=== PATIENT | male | born 1985 | race Caucasian/White ===

== ENCOUNTER 2018-01-07 09:55 | Emergency (ER) | payer BC, SELFPAY ==
[2018-01-07 10:02] VITALS: BP 138/98; PULSE 77; RESP 20; TEMP 36.5; O2SAT 98
--- NOTE | 2018-01-07 10:14 | DI.CT_ITS ---
SYMPTOMS/DIAGNOSIS: LEFT FLANK PAIN TO GROIN, RECENT APPENDECTOMY, H/O CYSTIC FIBROSIS ABDOMINAL AND PELVIC CT: CT examination of the abdomen and pelvis was performed without contrast administration. The patient has reportedly had a previous appendectomy. Images obtained through the lung bases show mild scattered bronchiectasis and mild interstitial changes. The patient reportedly has a history of cystic fibrosis. Liver and spleen are unremarkable in appearance by noncontrast criteria. The pancreas is fatty replaced. No biliary dilatation seen. The gallbladder not identified with certainty. There is a large quantity of ingested material in the stomach. Abdominal aorta is of normal diameter. No abdominal or pelvic adenopathy seen. No significant abdominal wall hernia seen. There is a large quantity of fecal material in the colon, particularly in ascending and transverse colon. No gross obstruction seen. The small bowel is within normal limits in diameter. Adrenals appear normal bilaterally. There are multiple bilateral nonobstructing renal calculi. No ureteral calcification or hydronephrosis identified. Urinary bladder is essentially empty. CONCLUSION: Multiple bilateral renal calculi. No other acute findings.
--- NOTE | 2018-01-07 10:16 | W.ED.GENAD ---
Discharge Plan Discharge Details Chief Complaint: FlankPain Primary Care Provider: Iesha Vargas ED Provider: Temo Whaley Home Meds and New Rx's Prescriptions: No Action multivitamin [Daily Multi-Vitamin] 1 EACH tablet 1 tab PO BID RF: 0 polyethylene glycol 3350 17 GM powder in packet 17 gm PO BID RF: 0 cetirizine [Zyrtec] 10 MG tablet 10 mg PO DAILY RF: 0 dornase soumya [Pulmozyme] 1 MG/ML solution 2.5 ml IN BID RF: 0 pantoprazole 40 MG tablet,delayed release (DR/EC) 1 tab PO DAILY RF: 0 ergocalciferol (vitamin D2) [Vitamin D2] 50,000 UNIT capsule 1 tab PO DIRECTED RF: 0 sodium chloride 3 ML solution for nebulization 1 ea Inhalation BID RF: 0 fluticasone-salmeterol [Advair HFA] 12 GM HFA aerosol inhaler 2 puff IN DAILY RF: 0 aztreonam lysine [Cayston] 75 MG/ML solution for nebulization 1 inh Inhalation TID RF: 0 [id number] [Creon] 1 EACH capsule,delayed release(DR/EC) 1 tab PO AC RF: 0 albuterol sulfate [ProAir RespiClick] 90 MCG aerosol powdr breath activated 2 puff Inhalation PRN PRNRF: 0 lumacaftor-ivacaftor [Orkambi] 1 EACH tablet 2 tab PO BID RF: 0 Medical Decision Making 32-year-old male presents from work for the abrupt onset of left flank pain that radiates to his groin. He has associated some previous low back pain with his uneventful appendectomy earlier in the summer. He arrives afebrile, interactive, with reassuring vital signs. His exam reveals some mild left lower quadrant tenderness without rebound or guarding. Differential diagnosis includes ureteral colic, ileus, gaseous distention of bowel. Patient referred for laboratory testing and urinalysis with noncontrast CT scan. He is given a fluid bolus . In the emergency department, the patient gave his urine sample and felt immediate release of pain and felt like he passed stone. Patient did have large blood present in lab reports a calculus, patient referred for stone analysis. CT reveals intrarenal calculi but no ureteral stone, and is consistent with his presentation. Advised patient follow-up with Dr. Alicea given his new diagnosis of renal calculi. Stable for outpatient management. Lab Data 01/07/18 10:15 Urine - Reflex from Ua Urine Culture - Pending Laboratory Tests Range/Units 01/07/18 01/07/18 01/07/18 10:15 10:25 10:25 WBC (4.4-10.8) k/cumm 8.38 RBC (4.50-6.00) m/cumm 5.62 Hgb (13.5-17.5) g/dL 16.1 Hct (40.0-50.0) % 47.4 MCV (80-95) fL 84.3 MCH (27.0-33.0) pg 28.6 MCHC (32.0-36.0) g/dL 34.0 RDW (11.8-14.1) % 13.7 Plt Count (130-400) x1000/uL 267 MPV (8.0-11.0) fL 9.7 Immature Gran % 0.2 Neutrophils % 67.9 Lymphocytes % 20.2 Monocytes % 8.0 Eosinophils % 3.2 Basophils % 0.5 Absolute Neutrophils (1.2-6.7) k/cumm 5.69 Absolute Lymphocytes (1.2-3.4) k/cumm 1.69 Absolute Monocytes (0.11-0.7) k/cumm 0.67 Absolute Eosinophils (0.0-0.7) k/cumm 0.27 Absolute Basophils (0.0-0.2) k/cumm 0.04 Sodium (136-145) mmol/L 138 Potassium (3.5-5.1) mmol/L 4.5 Chloride (98-107) mmol/L 101 Carbon Dioxide (21.0-32.0) mmol/L 29.2 Anion Gap (3-11) mmol/L 7.8 BUN (7-18) mg/dL 10 Creatinine (0.70-1.30) mg/dL 1.12 Estimated GFR/1.73 m2 (mL/min/1.73m2) >= 60.00 Glucose (70-100) mg/dL 135 H Calcium (8.5-10.1) mg/dL 9.4 Total Bilirubin (0.2-1.0) mg/dL 0.5 AST (15-37) U/L 19 ALT (12-78) U/L 29 Alkaline Phosphatase (46-116) U/L 102 Total Protein (6.4-8.2) g/dL 8.9 H Albumin (3.4-5.0) g/dL 4.0 Urine Color (Yellow) Yellow Urine Clarity Clear Urine pH (5-8) 5.5 Ur Specific [place] (1.005-1.025) 1.025 Urine Protein (Negative) mg/dL 100 H Urine Ketones (Negative) mg/dL Trace H Urine Blood (Negative) Large H Urine Nitrite (Negative) Negative Urine Bilirubin (Negative) Negative Urine Urobilinogen (Up TO 0.2) EU/dL 0.2 Ur Leukocyte Esterase (Negative) Negative Urine RBC (0-2) >50 H Urine WBC (0-5) HPF 3-5 Ur Epithelial Cells (Negative) HPF Negative Urine Crystals (Negative) HPF Negative Urine Bacteria (Negative) HPF Moderate Urine Casts (Negative) LPF Negative Urine Mucus (Negative) Heavy Urine Other (Negative) Few renal Ur Culture Indicated? Yes Urine Glucose (Negative) mg/dL Negative HPI General Mode of arrival: ambulatory. Date/Time Provider Initiated Documentation: 01/07/18 10:05. Limitations to Documentation: no limitations. Information obtained by: patient. History of Present Illness 32 year old M presents to the emergency department with the chief complaint of Left back pain, described as moderate, Quality is described as aching, and is localized to the back and left. Patient abdomen. Patient started experiencing this hour(s) and it has been colicky. No relieving factors improve symptom(s), No exacerbating factors reported . Patient notes no other symptoms.. Patient did receive the following treatments prior to arrival, none HPI Narrative: Left flank pain: This is a 32-year-old male with a history of cystic fibrosis who underwent uneventful appendectomy in November. He states since that time his intermittent episodes of mild low back pain. Today at work while at rest and sitting he developed the abrupt onset of severe left-sided flank pain that radiated to his left testicle. Denies change to urine, has had no fever, no vomiting, no change to stool Related Data Home Medications Medication Instructions Recorded Confirmed albuterol sulfate [ProAir 2 puff INHALATION PRN PRN 11/14/17 01/07/18 RespiClick] aztreonam lysine [Cayston] 1 inh INHALATION TID 11/14/17 01/07/18 cetirizine [Zyrtec] 10 mg PO DAILY 11/14/17 01/07/18 dornase soumya [Pulmozyme] 2.5 ml IN BID 11/14/17 01/07/18 ergocalciferol (vitamin D2) 1 tab PO DIRECTED 11/14/17 01/07/18 [Vitamin D2] fluticasone-salmeterol [Advair Hfa 2 puff IN DAILY 11/14/17 01/07/18 115-21 Mcg Inhaler] [id number] [Creon Dr 1 tab PO AC 11/14/17 01/07/18 36,000 Units Capsule] lumacaftor-ivacaftor [Orkambi 200 2 tab PO BID 11/14/17 01/07/18 mg-125 mg Tablet] multivitamin [Multi-Vitamin Daily] 1 tab PO BID 11/14/17 01/07/18 pantoprazole 1 tab PO DAILY 11/14/17 01/07/18 polyethylene glycol 3350 17 gm PO BID 11/14/17 01/07/18 sodium chloride 1 ea INHALATION BID 11/14/17 11/14/17 Allergies Allergy/AdvReac Type Severity Reaction Status Date / Time No Known Allergies Allergy Unverified 01/07/18 10:07 General Stated Complaint: GenMedical CLAIRE: 3 Review of Systems Review of Systems 7 systems reviewed and otherwise negative [facility] Surgical History Appendectomy (11/14/17) Exam Narrative Exam Narrative: GEN: awake, alert, oriented 3. Pleasant, well groomed, interactive. HEAD: Normocephalic, atraumatic ENT: Mucous membranes moist, oropharynx unremarkable, External ear exam unremarkable EYES: PERRL, EOMI NECK: Full ROM, no WILIAN, no menigismus CHEST/RESP: Nontender, clear to auscultation bilateral, no wheeze/rhonchi/rales CARDIOVASCULAR: RRR, no murmur, rub tim. 2+ Rad pulse bilateral ABDOMEN: Soft, nontender, no mass. +Bowel sounds. Tender in left lower quadrant without rebound or guarding. No masses EXT: Full ROM, no edema, no rash Neuro: Grossly normal neurologic exam, conversant, interactive. Psych: Speech fluent, thoughts congruent, affect normal Course Vital Signs Temperature 36.5 C 01/07/18 10:02 Pulse 77 01/07/18 10:02 Respiratory Rate 20 01/07/18 10:02 Blood Pressure 138/98 H 01/07/18 10:02 Pulse Oximetry 98 01/07/18 10:02 Temperature 36.5 C 01/07/18 10:02 Pulse 77 01/07/18 10:02 Respiratory Rate 20 01/07/18 10:02 Blood Pressure 138/98 H 01/07/18 10:02 Pulse Oximetry 98 01/07/18 10:02 Oxygen Delivery Method Room Air 01/07/18 10:02 Oxygen Flow Rate 0 01/07/18 10:02 Pain Level 10 01/07/18 10:02
--- NOTE | 2018-01-07 10:19 | ED.GENADUL_ITS ---
Discharge Plan Discharge Details Chief Complaint: FlankPain Primary Care Provider: Iesha Vargas ED Provider: Temo Whaley Home Meds and New Rx's Prescriptions: No Action multivitamin [Daily Multi-Vitamin] 1 EACH tablet 1 tab PO BID RF: 0 polyethylene glycol 3350 17 GM powder in packet 17 gm PO BID RF: 0 cetirizine [Zyrtec] 10 MG tablet 10 mg PO DAILY RF: 0 dornase soumya [Pulmozyme] 1 MG/ML solution 2.5 ml IN BID RF: 0 pantoprazole 40 MG tablet,delayed release (DR/EC) 1 tab PO DAILY RF: 0 ergocalciferol (vitamin D2) [Vitamin D2] 50,000 UNIT capsule 1 tab PO DIRECTED RF: 0 sodium chloride 3 ML solution for nebulization 1 ea Inhalation BID RF: 0 fluticasone-salmeterol [Advair HFA] 12 GM HFA aerosol inhaler 2 puff IN DAILY RF: 0 aztreonam lysine [Cayston] 75 MG/ML solution for nebulization 1 inh Inhalation TID RF: 0 [id number] [Creon] 1 EACH capsule,delayed release(DR/EC) 1 tab PO AC RF: 0 albuterol sulfate [ProAir RespiClick] 90 MCG aerosol powdr breath activated 2 puff Inhalation PRN PRNRF: 0 lumacaftor-ivacaftor [Orkambi] 1 EACH tablet 2 tab PO BID RF: 0 Medical Decision Making 32-year-old male presents from work for the abrupt onset of left flank pain that radiates to his groin. He has associated some previous low back pain with his uneventful appendectomy earlier in the summer. He arrives afebrile, interactive, with reassuring vital signs. His exam reveals some mild left lower quadrant tenderness without rebound or guarding. Differential diagnosis includes ureteral colic, ileus, gaseous distention of bowel. Patient referred for laboratory testing and urinalysis with noncontrast CT scan. He is given a fluid bolus . In the emergency department, the patient gave his urine sample and felt immediate release of pain and felt like he passed stone. Patient did have large blood present in lab reports a calculus, patient referred for stone analysis. CT reveals intrarenal calculi but no ureteral stone, and is consistent with his presentation. Advised patient follow-up with Dr. Alicea given his new diagnosis of renal calculi. Stable for outpatient management. Lab Data 01/07/18 10:15 Urine - Reflex from Ua Urine Culture - Pending Laboratory Tests Range/Units 01/07/18 01/07/18 01/07/18 10:15 10:25 10:25 WBC (4.4-10.8) k/cumm 8.38 RBC (4.50-6.00) m/cumm 5.62 Hgb (13.5-17.5) g/dL 16.1 Hct (40.0-50.0) % 47.4 MCV (80-95) fL 84.3 MCH (27.0-33.0) pg 28.6 MCHC (32.0-36.0) g/dL 34.0 RDW (11.8-14.1) % 13.7 Plt Count (130-400) x1000/uL 267 MPV (8.0-11.0) fL 9.7 Immature Gran % 0.2 Neutrophils % 67.9 Lymphocytes % 20.2 Monocytes % 8.0 Eosinophils % 3.2 Basophils % 0.5 Absolute Neutrophils (1.2-6.7) k/cumm 5.69 Absolute Lymphocytes (1.2-3.4) k/cumm 1.69 Absolute Monocytes (0.11-0.7) k/cumm 0.67 Absolute Eosinophils (0.0-0.7) k/cumm 0.27 Absolute Basophils (0.0-0.2) k/cumm 0.04 Sodium (136-145) mmol/L 138 Potassium (3.5-5.1) mmol/L 4.5 Chloride (98-107) mmol/L 101 Carbon Dioxide (21.0-32.0) mmol/L 29.2 Anion Gap (3-11) mmol/L 7.8 BUN (7-18) mg/dL 10 Creatinine (0.70-1.30) mg/dL 1.12 Estimated GFR/1.73 m2 (mL/min/1.73m2) >= 60.00 Glucose (70-100) mg/dL 135 H Calcium (8.5-10.1) mg/dL 9.4 Total Bilirubin (0.2-1.0) mg/dL 0.5 AST (15-37) U/L 19 ALT (12-78) U/L 29 Alkaline Phosphatase (46-116) U/L 102 Total Protein (6.4-8.2) g/dL 8.9 H Albumin (3.4-5.0) g/dL 4.0 Urine Color (Yellow) Yellow Urine Clarity Clear Urine pH (5-8) 5.5 Ur Specific [place] (1.005-1.025) 1.025 Urine Protein (Negative) mg/dL 100 H Urine Ketones (Negative) mg/dL Trace H Urine Blood (Negative) Large H Urine Nitrite (Negative) Negative Urine Bilirubin (Negative) Negative Urine Urobilinogen (Up TO 0.2) EU/dL 0.2 Ur Leukocyte Esterase (Negative) Negative Urine RBC (0-2) >50 H Urine WBC (0-5) HPF 3-5 Ur Epithelial Cells (Negative) HPF Negative Urine Crystals (Negative) HPF Negative Urine Bacteria (Negative) HPF Moderate Urine Casts (Negative) LPF Negative Urine Mucus (Negative) Heavy Urine Other (Negative) Few renal Ur Culture Indicated? Yes Urine Glucose (Negative) mg/dL Negative HPI General Mode of arrival: ambulatory . Date/Time Provider Initiated Documentation: 01/07/18 10:05 . Limitations to Documentation: no limitations . Information obtained by: patient . History of Present Illness 32 year old M presents to the emergency department with the chief complaint of Left back pain, described as moderate, Quality is described as aching, and is localized to the back and left. Patient abdomen. Patient started experiencing this hour(s) and it has been colicky. No relieving factors improve symptom(s), No exacerbating factors reported . Patient notes no other symptoms.. Patient did receive the following treatments prior to arrival, none HPI Narrative: Left flank pain: This is a 32-year-old male with a history of cystic fibrosis who underwent uneventful appendectomy in November. He states since that time his intermittent episodes of mild low back pain. Today at work while at rest and sitting he developed the abrupt onset of severe left-sided flank pain that radiated to his left testicle. Denies change to urine, has had no fever, no vomiting, no change to stool Related Data Home Medications Medication Instructions Recorded Confirmed albuterol sulfate [ProAir 2 puff INHALATION PRN PRN 11/14/17 01/07/18 RespiClick] aztreonam lysine [Cayston] 1 inh INHALATION TID 11/14/17 01/07/18 cetirizine [Zyrtec] 10 mg PO DAILY 11/14/17 01/07/18 dornase soumya [Pulmozyme] 2.5 ml IN BID 11/14/17 01/07/18 ergocalciferol (vitamin D2) 1 tab PO DIRECTED 11/14/17 01/07/18 [Vitamin D2] fluticasone-salmeterol [Advair Hfa 2 puff IN DAILY 11/14/17 01/07/18 115-21 Mcg Inhaler] [id number] [Creon Dr 1 tab PO AC 11/14/17 01/07/18 36,000 Units Capsule] lumacaftor-ivacaftor [Orkambi 200 2 tab PO BID 11/14/17 01/07/18 mg-125 mg Tablet] multivitamin [Multi-Vitamin Daily] 1 tab PO BID 11/14/17 01/07/18 pantoprazole 1 tab PO DAILY 11/14/17 01/07/18 polyethylene glycol 3350 17 gm PO BID 11/14/17 01/07/18 sodium chloride 1 ea INHALATION BID 11/14/17 11/14/17 Allergies Allergy/AdvReac Type Severity Reaction Status Date / Time No Known Allergies Allergy Unverified 01/07/18 10:07 General Stated Complaint: GenMedical CLAIRE: 3 Review of Systems Review of Systems 7 systems reviewed and otherwise negative [facility] Surgical History Appendectomy (11/14/17) Exam Narrative Exam Narrative: GEN: awake, alert, oriented 3. Pleasant, well groomed, interactive. HEAD: Normocephalic, atraumatic ENT: Mucous membranes moist, oropharynx unremarkable, External ear exam unremarkable EYES: PERRL, EOMI NECK: Full ROM, no WILIAN, no menigismus CHEST/RESP: Nontender, clear to auscultation bilateral, no wheeze/rhonchi/rales CARDIOVASCULAR: RRR, no murmur, rub tim. 2+ Rad pulse bilateral ABDOMEN: Soft, nontender, no mass. +Bowel sounds. Tender in left lower quadrant without rebound or guarding. No masses EXT: Full ROM, no edema, no rash Neuro: Grossly normal neurologic exam, conversant, interactive. Psych: Speech fluent, thoughts congruent, affect normal Course Vital Signs Temperature 36.5 C 01/07/18 10:02 Pulse 77 01/07/18 10:02 Respiratory Rate 20 01/07/18 10:02 Blood Pressure 138/98 H 01/07/18 10:02 Pulse Oximetry 98 01/07/18 10:02 Temperature 36.5 C 01/07/18 10:02 Pulse 77 01/07/18 10:02 Respiratory Rate 20 01/07/18 10:02 Blood Pressure 138/98 H 01/07/18 10:02 Pulse Oximetry 98 01/07/18 10:02 Oxygen Delivery Method Room Air 01/07/18 10:02 Oxygen Flow Rate 0 01/07/18 10:02 Pain Level 10 01/07/18 10:02
[2018-01-07 10:29] LABS: Bilirubin Negative (Negative); Blood Large (Negative); Clarity Clear; Glucose Negative (Negative); Ketones Trace mg/dL (Negative); Leukocyte Esterase Negative (Negative); Nitrite Negative (Negative); Specific Gravity 1.025 (1.005-1.025); Urobilinogen 0.2 EU/dL (Up TO 0.2); pH 5.5 (5-8)
[2018-01-07] MEDS: Normal Saline 1,000 ML 125 ML IV (10:29)
[2018-01-07 10:30] LABS: Abs Immature Grans 0.02 k/cumm (0.0-0.09); Absolute Basophil Count 0.04 k/cumm (0.0-0.2); Absolute Eosinophil Count 0.27 k/cumm (0.0-0.7); Absolute Lymphocyte Count 1.69 k/cumm (1.2-3.4); Absolute Monocyte Count 0.67 k/cumm (0.11-0.7); Absolute Neutrophil Count 5.69 k/cumm (1.2-6.7); Basophils % 0.5; Eosinophils % 3.2; HCT 47.4 % (40.0-50.0); HGB 16.1 g/dL (13.5-17.5); Immature Grans % 0.2; Lymphocytes % 20.2; Mean Corpuscular Hemoglobin 28.6 pg (27.0-33.0); Mean Corpuscular Volume 84.3 fL (80-95); Mean Platelet Volume 9.7 fL (8.0-11.0); Neutrophils % 67.9; Platelet Count 267 x1000/uL (130-400); RBC 5.62 m/cumm (4.50-6.00); RBC Distribution Width 13.7 % (11.8-14.1); White Blood Cell Count 8.38 k/cumm (4.4-10.8)
[2018-01-07 10:48] LABS: Bacteria Moderate HPF (Negative); Epithelial Cells Negative HPF (Negative); Other Cells Few Renal (Negative); RBC >50 (0-2)
[2018-01-07 10:49] LABS: ALT 29 U/L (12-78); AST 19 U/L (15-37); Alkaline Phosphatase 102 U/L (46-116); Anion Gap 7.8 mmol/L (3-11); BUN 10 mg/dL (7-18); Bilirubin, Total 0.5 mg/dL (0.2-1.0); CO2 29.2 mmol/L (21.0-32.0); CREATININE 1.12 mg/dL (0.70-1.30); Calcium 9.4 mg/dL (8.5-10.1); Chloride 101 mmol/L (98-107); Glucose 135 mg/dL (70-100); Potassium 4.5 mmol/L (3.5-5.1); Sodium 138 mmol/L (136-145); Total Protein 8.9 g/dL (6.4-8.2)
[2018-01-07 10:49] LABS: C & S Indicated? Yes; Casts Negative LPF (Negative); Crystals Negative HPF (Negative); Mucus Heavy (Negative)
[2018-01-07 11:07] VITALS: BP 118/84; PULSE 98; RESP 16; TEMP 36.5; O2SAT 95
--- NOTE | 2018-01-08 10:43 | PDOC.ERCMPRO ---
Care Management Progress Note 01/08/18-Pt seen on 01/07/18 for bilateral kidney stones by Dr. Hoda Whaley. Referral f/u faxed to Urology.
[2018-01-09 00:21] LABS: Source: Kidney
== END 2018-01-07 11:09 | disposition home or self-care (01) ==
PROVIDERS: Emergency Provider Emergency Medicine; PCP Family Medicine
DX: N23 Unspecified renal colic (principal); N20.0 Calculus of kidney; E84.9 Cystic fibrosis, unspecified
CPT/HCPCS: 36415; 80053; 87077; 96360; 99284; 74176; 81003; 81015; 82360; 85025; 87086; 87186

== ENCOUNTER 2018-03-08 09:59 | Emergency (ER) | payer BC, SELFPAY ==
[2018-03-08 10:02] VITALS: BP 140/90; PULSE 73; RESP 22; TEMP 36.1; O2SAT 97
--- NOTE | 2018-03-08 10:12 | DI.US_ITS ---
SYMPTOM/DIAGNOSIS: RT FLANK PAIN RENAL ULTRASOUND: The kidneys are normal in size and shape. There are multiple bilateral renal calculi. There appears to be right hydronephrosis. No left hydronephrosis is seen. Urinary bladder is nearly empty. Left ureteral jet visualized, right ureteral jet not visualized. CONCLUSION: Right hydronephrosis suggesting ureteral or UPJ obstruction. Bilateral nephrolithiasis.
--- NOTE | 2018-03-08 10:13 | W.ED.GENAD ---
Discharge Plan Disposition Patient Disposition: HOME Condition: Improving Discharge Details Chief Complaint: FlankPain Clinical Impression: Multiple renal calculi Primary Care Provider: Iesha Vargas ED Provider: Ronny Centeno Home Meds and New Rx's Prescriptions: New tamsulosin 0.4 mg capsule 0.4 mg PO DAILY Qty: 14 RF: 0 ibuprofen [IBU] 600 mg tablet 600 mg PO QID PRN (Reason: pain) Qty: 20 RF: 0 Continue multivitamin [Daily Multi-Vitamin] 1 EACH tablet 1 tab PO BID RF: 0 polyethylene glycol 3350 17 GM powder in packet 17 gm PO BID RF: 0 cetirizine [Zyrtec] 10 MG tablet 10 mg PO DAILY RF: 0 dornase soumya [Pulmozyme] 1 MG/ML solution 2.5 ml IN BID RF: 0 pantoprazole 40 MG tablet,delayed release (DR/EC) 1 tab PO DAILY RF: 0 ergocalciferol (vitamin D2) [Vitamin D2] 50,000 UNIT capsule 1 tab PO DIRECTED RF: 0 sodium chloride 3 ML solution for nebulization 1 ea Inhalation BID RF: 0 fluticasone-salmeterol [Advair HFA] 12 GM HFA aerosol inhaler 2 puff IN DAILY RF: 0 aztreonam lysine [Cayston] 75 MG/ML solution for nebulization 1 inh Inhalation TID RF: 0 zpecvi-vljzimsv-apdksjq [Creon] 1 EACH capsule,delayed release(DR/EC) 1 tab PO AC RF: 0 albuterol sulfate [ProAir RespiClick] 90 MCG aerosol powdr breath activated 2 puff Inhalation PRN PRNRF: 0 lumacaftor-ivacaftor [Orkambi] 1 EACH tablet 2 tab PO BID RF: 0 Discharge Instructions Instructions: Kidney Stones (ED), How to Strain Your Urine (ED) Additional Instructions: Take your medication as prescribed and stay well-hydrated. If you have any new or worsening symptoms including fever chills, persistent nausea vomiting, severe worsening of your pain return to the emergency department immediately for reevaluation. Otherwise follow-up with urology as directed by their office. Stand Alone Forms: Work Release Referrals: Goran Alicea MD [ [facility] STAFF PHYSICIAN] - (1-2 weeks for reassessment) Medical Decision Making Patient presenting to the emergency department for chief complaint of right-sided flank pain. This started occurring approximately 2 hours prior to arrival. Patient states that he was here approximately 2 months ago and diagnosed with kidney stones. Previous records were were reviewed and do show bilateral intrarenal kidney stones with no signs of obstruction at that time. Patient does state that he passed a stone at that time. He states that this discomfort this morning is very similar to when he was here previously. Patient states some nausea and vomiting associated with the flank pain. Patient denies any hematuria or urinary symptoms, fever or other global symptoms. Vital signs are reassuring. Plan to check labs and ultrasound of abdomen. Pending results patient given ketorolac Zofran and IV fluids. Spoke to radiologist in regards to ultrasound imaging that does show some mild right hydronephrosis. Labs were reviewed and do show a significant leukocytosis but normal renal function and are otherwise are nondiagnostic. Patient reassessed still pending urinalysis, patient states that he is feeling significantly better with reduction of pain. Patient given 0.4 of Flomax and informed to strain his urine. Review of urinalysis shows RBCs otherwise unremarkable and shows no signs of infection. Patient reassessed again and remains stable afebrile and pain significantly reduced. Did review old records and showed calcium oxalate composition of previous kidney stone so given this I did reach out and touch base with Dr. Alicea urologist. Dr. Alicea stated that he would not start patient on antibiotics and did not recommend any CT imaging of the abdomen at this time. He stated for patient to continue Flomax and pain control and follow-up with his office in 1-2 weeks return immediately to emergency department for fever or worsening pain. These recommendations were communicated to patient and patient was discharged in stable condition still having relatively low amounts of pain. After discussion of diagnosis and plan of care patient has no further needs, questions, or concerns and states clear understanding to return to the emergency department for any worsening symptoms. HPI General Mode of arrival: ambulatory. Date/Time Provider Initiated Documentation: 03/08/18 10:05. Limitations to Documentation: no limitations. Information obtained by: patient, RN notes reviewed and old records reviewed. History of Present Illness 32 year old M presents to the emergency department with the chief complaint of Right flank pain, described as moderate, with intensity rated at 8. Quality is described as sharp, and is localized to the right (flank). Patient reports radiation to back. Patient started experiencing this hour(s) (2) and it has been constant. No relieving factors improve symptom(s), No exacerbating factors reported . Patient notes no other symptoms.. Patient did receive the following treatments prior to arrival, none Related Data Home Medications Medication Instructions Recorded Confirmed albuterol sulfate [ProAir 2 puff INHALATION PRN PRN 11/14/17 01/07/18 RespiClick] aztreonam lysine [Cayston] 1 inh INHALATION TID 11/14/17 01/07/18 cetirizine [Zyrtec] 10 mg PO DAILY 11/14/17 01/07/18 dornase soumya [Pulmozyme] 2.5 ml IN BID 11/14/17 01/07/18 ergocalciferol (vitamin D2) 1 tab PO DIRECTED 11/14/17 01/07/18 [Vitamin D2] fluticasone-salmeterol [Advair HFA] 2 puff IN DAILY 11/14/17 01/07/18 frycei-aklmhlcu-eadfzei [Creon] 1 tab PO AC 11/14/17 01/07/18 lumacaftor-ivacaftor [Orkambi] 2 tab PO BID 11/14/17 01/07/18 multivitamin [Daily Multi-Vitamin] 1 tab PO BID 11/14/17 01/07/18 pantoprazole 1 tab PO DAILY 11/14/17 01/07/18 polyethylene glycol 3350 17 gm PO BID 11/14/17 01/07/18 sodium chloride 1 ea INHALATION BID 11/14/17 11/14/17 ibuprofen [IBU] 600 mg PO QID PRN #20 tab 03/08/18 tamsulosin 0.4 mg PO DAILY #14 cap 03/08/18 Previous Rx's Medication Instructions Recorded ibuprofen [IBU] 600 mg PO QID PRN #20 tab 03/08/18 tamsulosin 0.4 mg PO DAILY #14 cap 03/08/18 Allergies Allergy/AdvReac Type Severity Reaction Status Date / Time No Known Allergies Allergy Unverified 03/08/18 10:05 General Stated Complaint: FlankPain CLAIRE: 3 Review of Systems Constitutional Denies fever(s) and Denies poor appetite Cardiovascular Denies chest pain and Denies dyspnea Respiratory Denies dyspnea Gastrointestinal Reports as per HPI, Reports abdominal pain, Denies melena, Denies change in bowel habits, Denies constipation, Denies diarrhea, Reports nausea and Reports vomiting Genitourinary Denies hematuria, Denies difficulty urinating, Denies urinary hesitancy, Denies urinary incontinence and Denies urinary urgency Integumentary/Breasts Denies rash PFSH Appendectomy (11/14/17) Surgical History Appendectomy (11/14/17) Social History Smoking/Tobacco Use Status: Never Exam Const General: cooperative and no acute distress Nutritional Appearance: thin Orientation: alert, awake and oriented x3 Resp Effort & Inspection: normal respiratory effort and able to speak in complete sentences Auscultation: clear to auscultation bilaterally Cardio Rate: regular rate Rhythm: regular rhythm Heart Sounds: S1 normal and S2 normal GI Palpation: soft, no hepatosplenomegaly, not firm, no guarding, no masses, no pulsatile masses, not rigid, no splenomegaly and tender in the RLQ and in the RUQ Auscultation: normal bowel sounds Back/Spine/Pelvis Back: CVA tenderness (right) Neuro General: alert, awake, oriented x3, gait normal and moves all extremities Course Vital Signs Temperature 36.1 C L 03/08/18 10:02 Pulse 73 03/08/18 10:02 Respiratory Rate 22 03/08/18 10:02 Blood Pressure 140/90 03/08/18 10:02 Pulse Oximetry 97 03/08/18 10:02 Temperature 36.1 C L 03/08/18 10:02 Temperature Source Skin 03/08/18 10:02 Pulse 73 03/08/18 10:02 Respiratory Rate 22 03/08/18 10:02 Blood Pressure 140/90 03/08/18 10:02 Blood Pressure Position Sitting 03/08/18 10:02 Pulse Oximetry 97 03/08/18 10:02 Oxygen Delivery Method Room Air 03/08/18 10:02 Oxygen Flow Rate 0 03/08/18 10:02 Pain Level 8 03/08/18 10:02
--- NOTE | 2018-03-08 10:16 | ED.GENADUL_ITS ---
Discharge Plan Disposition Patient Disposition: HOME Condition: Improving Discharge Details Chief Complaint: FlankPain Clinical Impression: Multiple renal calculi Primary Care Provider: Iesha Vargas ED Provider: Ronny Centeno Home Meds and New Rx's Prescriptions: New tamsulosin 0.4 mg capsule 0.4 mg PO DAILY Qty: 14 RF: 0 ibuprofen [IBU] 600 mg tablet 600 mg PO QID PRN (Reason: pain) Qty: 20 RF: 0 Continue multivitamin [Daily Multi-Vitamin] 1 EACH tablet 1 tab PO BID RF: 0 polyethylene glycol 3350 17 GM powder in packet 17 gm PO BID RF: 0 cetirizine [Zyrtec] 10 MG tablet 10 mg PO DAILY RF: 0 dornase soumya [Pulmozyme] 1 MG/ML solution 2.5 ml IN BID RF: 0 pantoprazole 40 MG tablet,delayed release (DR/EC) 1 tab PO DAILY RF: 0 ergocalciferol (vitamin D2) [Vitamin D2] 50,000 UNIT capsule 1 tab PO DIRECTED RF: 0 sodium chloride 3 ML solution for nebulization 1 ea Inhalation BID RF: 0 fluticasone-salmeterol [Advair HFA] 12 GM HFA aerosol inhaler 2 puff IN DAILY RF: 0 aztreonam lysine [Cayston] 75 MG/ML solution for nebulization 1 inh Inhalation TID RF: 0 newnkq-jbvgdajd-ywpkncq [Creon] 1 EACH capsule,delayed release(DR/EC) 1 tab PO AC RF: 0 albuterol sulfate [ProAir RespiClick] 90 MCG aerosol powdr breath activated 2 puff Inhalation PRN PRNRF: 0 lumacaftor-ivacaftor [Orkambi] 1 EACH tablet 2 tab PO BID RF: 0 Discharge Instructions Instructions: Kidney Stones (ED), How to Strain Your Urine (ED) Additional Instructions: Take your medication as prescribed and stay well-hydrated. If you have any new or worsening symptoms including fever chills, persistent nausea vomiting, severe worsening of your pain return to the emergency department immediately for reevaluation. Otherwise follow-up with urology as directed by their office. Stand Alone Forms: Work Release Referrals: Goran Alicea MD [ [facility] STAFF PHYSICIAN] - (1-2 weeks for reassessment) Medical Decision Making Patient presenting to the emergency department for chief complaint of right- sided flank pain. This started occurring approximately 2 hours prior to arrival. Patient states that he was here approximately 2 months ago and diagnosed with kidney stones. Previous records were were reviewed and do show bilateral intrarenal kidney stones with no signs of obstruction at that time. Patient does state that he passed a stone at that time. He states that this discomfort this morning is very similar to when he was here previously. Patient states some nausea and vomiting associated with the flank pain. Patient denies any hematuria or urinary symptoms, fever or other global symptoms. Vital signs are reassuring. Plan to check labs and ultrasound of abdomen. Pending results patient given ketorolac Zofran and IV fluids. Spoke to radiologist in regards to ultrasound imaging that does show some mild right hydronephrosis. Labs were reviewed and do show a significant leukocytosis but normal renal function and are otherwise are nondiagnostic. Patient reassessed still pending urinalysis, patient states that he is feeling significantly better with reduction of pain. Patient given 0.4 of Flomax and informed to strain his urine. Review of urinalysis shows RBCs otherwise unremarkable and shows no signs of infection. Patient reassessed again and remains stable afebrile and pain significantly reduced. Did review old records and showed calcium oxalate composition of previous kidney stone so given this I did reach out and touch base with Dr. Alicea urologist. Dr. Alicea stated that he would not start patient on antibiotics and did not recommend any CT imaging of the abdomen at this time. He stated for patient to continue Flomax and pain control and follow -up with his office in 1-2 weeks return immediately to emergency department for fever or worsening pain. These recommendations were communicated to patient and patient was discharged in stable condition still having relatively low amounts of pain. After discussion of diagnosis and plan of care patient has no further needs, questions, or concerns and states clear understanding to return to the emergency department for any worsening symptoms. HPI General Mode of arrival: ambulatory . Date/Time Provider Initiated Documentation: 03/08/18 10:05 . Limitations to Documentation: no limitations . Information obtained by: patient, RN notes reviewed and old records reviewed . History of Present Illness 32 year old M presents to the emergency department with the chief complaint of Right flank pain, described as moderate, with intensity rated at 8. Quality is described as sharp, and is localized to the right (flank). Patient reports radiation to back. Patient started experiencing this hour(s) ( 2) and it has been constant. No relieving factors improve symptom(s), No exacerbating factors reported . Patient notes no other symptoms.. Patient did receive the following treatments prior to arrival, none Related Data Home Medications Medication Instructions Recorded Confirmed albuterol sulfate [ProAir 2 puff INHALATION PRN PRN 11/14/17 01/07/18 RespiClick] aztreonam lysine [Cayston] 1 inh INHALATION TID 11/14/17 01/07/18 cetirizine [Zyrtec] 10 mg PO DAILY 11/14/17 01/07/18 dornase soumya [Pulmozyme] 2.5 ml IN BID 11/14/17 01/07/18 ergocalciferol (vitamin D2) 1 tab PO DIRECTED 11/14/17 01/07/18 [Vitamin D2] fluticasone-salmeterol [Advair HFA] 2 puff IN DAILY 11/14/17 01/07/18 fewqvp-ccgyhjsj-fbqxoub [Creon] 1 tab PO AC 11/14/17 01/07/18 lumacaftor-ivacaftor [Orkambi] 2 tab PO BID 11/14/17 01/07/18 multivitamin [Daily Multi-Vitamin] 1 tab PO BID 11/14/17 01/07/18 pantoprazole 1 tab PO DAILY 11/14/17 01/07/18 polyethylene glycol 3350 17 gm PO BID 11/14/17 01/07/18 sodium chloride 1 ea INHALATION BID 11/14/17 11/14/17 ibuprofen [IBU] 600 mg PO QID PRN #20 tab 03/08/18 tamsulosin 0.4 mg PO DAILY #14 cap 03/08/18 Previous Rx's Medication Instructions Recorded ibuprofen [IBU] 600 mg PO QID PRN #20 tab 03/08/18 tamsulosin 0.4 mg PO DAILY #14 cap 03/08/18 Allergies Allergy/AdvReac Type Severity Reaction Status Date / Time No Known Allergies Allergy Unverified 03/08/18 10:05 General Stated Complaint: FlankPain CLAIRE: 3 Review of Systems Constitutional Denies fever(s) and Denies poor appetite Cardiovascular Denies chest pain and Denies dyspnea Respiratory Denies dyspnea Gastrointestinal Reports as per HPI, Reports abdominal pain, Denies melena, Denies change in bowel habits, Denies constipation, Denies diarrhea, Reports nausea and Reports vomiting Genitourinary Denies hematuria, Denies difficulty urinating, Denies urinary hesitancy, Denies urinary incontinence and Denies urinary urgency Integumentary/Breasts Denies rash PFSH Appendectomy (11/14/17) Surgical History Appendectomy (11/14/17) Social History Smoking/Tobacco Use Status: Never Exam Const General: cooperative and no acute distress Nutritional Appearance: thin Orientation: alert, awake and oriented x3 Resp Effort & Inspection: normal respiratory effort and able to speak in complete sentences Auscultation: clear to auscultation bilaterally Cardio Rate: regular rate Rhythm: regular rhythm Heart Sounds: S1 normal and S2 normal GI Palpation: soft, no hepatosplenomegaly, not firm, no guarding, no masses, no pulsatile masses, not rigid, no splenomegaly and tender in the RLQ and in the RUQ Auscultation: normal bowel sounds Back/Spine/Pelvis Back: CVA tenderness (right) Neuro General: alert, awake, oriented x3, gait normal and moves all extremities Course Vital Signs Temperature 36.1 C L 03/08/18 10:02 Pulse 73 03/08/18 10:02 Respiratory Rate 22 03/08/18 10:02 Blood Pressure 140/90 03/08/18 10:02 Pulse Oximetry 97 03/08/18 10:02 Temperature 36.1 C L 03/08/18 10:02 Temperature Source Skin 03/08/18 10:02 Pulse 73 03/08/18 10:02 Respiratory Rate 22 03/08/18 10:02 Blood Pressure 140/90 03/08/18 10:02 Blood Pressure Position Sitting 03/08/18 10:02 Pulse Oximetry 97 03/08/18 10:02 Oxygen Delivery Method Room Air 03/08/18 10:02 Oxygen Flow Rate 0 03/08/18 10:02 Pain Level 8 03/08/18 10:02
[2018-03-08] MEDS: Ondansetron 4 MG/2 ML VIAL IVP (10:17)
[2018-03-08] MEDS: Ketorolac 30 MG/ML VIAL IVP (10:20)
[2018-03-08] MEDS: Normal Saline 1,000 ML 1000 ML IV (10:20)
[2018-03-08 11:18] LABS: Abs Immature Grans 0.04 k/cumm (0.0-0.09); Absolute Basophil Count 0.02 k/cumm (0.0-0.2); Absolute Monocyte Count 0.79 k/cumm (0.11-0.7); Basophils % 0.1; Eosinophils % 0.3; HGB 13.3 g/dL (13.5-17.5); Immature Grans % 0.2; Lymphocytes % 3.9; Mean Corp. HGB Concentration 34.1 g/dL (32.0-36.0); Mean Corpuscular Hemoglobin 28.9 pg (27.0-33.0); Mean Corpuscular Volume 84.6 fL (80-95); Mean Platelet Volume 9.4 fL (8.0-11.0); Monocytes % 4.4; Neutrophils % 91.1; Platelet Count 187 x1000/uL (130-400); RBC 4.61 m/cumm (4.50-6.00); White Blood Cell Count 17.85 k/cumm (4.4-10.8)
[2018-03-08 11:33] LABS: Absolute Eosinophil Count 0.05 k/cumm (0.0-0.7); Absolute Neutrophil Count 16.26 k/cumm (1.2-6.7)
[2018-03-08 11:41] LABS: ALT 32 U/L (12-78); AST 20 U/L (15-37); Alkaline Phosphatase 69 U/L (46-116); BUN 10 mg/dL (7-18); Bilirubin, Total 0.2 mg/dL (0.2-1.0); CREATININE 0.95 mg/dL (0.70-1.30); Chloride 105 mmol/L (98-107); Glucose 89 mg/dL (70-100); Potassium 3.6 mmol/L (3.5-5.1); Sodium 138 mmol/L (136-145); Total Protein 6.8 g/dL (6.4-8.2)
[2018-03-08] MEDS: Tamsulosin 0.4 MG CAPCR PO (13:03)
[2018-03-08 13:22] LABS: Bilirubin Negative (Negative); Blood Moderate (Negative); Clarity Clear; Glucose Negative (Negative); Ketones Trace mg/dL (Negative); Leukocyte Esterase Negative (Negative); Nitrite Negative (Negative); Urobilinogen 0.2 EU/dL (Up TO 0.2)
[2018-03-08 13:31] LABS: Bacteria Negative HPF (Negative); C & S Indicated? No; Casts Negative LPF (Negative); Crystals Few Amorphous HPF (Negative); Epithelial Cells Negative HPF (Negative); Mucus Negative (Negative); WBC 0-2 HPF (0-5)
[2018-03-08 14:06] VITALS: BP 140/90; PULSE 73; RESP 22; TEMP 36.1; O2SAT 97
== END 2018-03-08 14:05 | disposition home or self-care (01) ==
PROVIDERS: Emergency Provider Nurse Practitioner Family; PCP Family Medicine
DX: N20.0 Calculus of kidney (principal); N13.39 Other hydronephrosis
CPT/HCPCS: 36415; 76770; 80053; 96361; 96374; 96375; 99284; 81003; 81015; 85025; J1885; J2405

== ENCOUNTER 2018-03-15 08:59 | Outpatient (CLI) | payer BC, SELFPAY | END 2018-03-15 09:19 | PROVIDERS: PCP Family Medicine; Visit Provider Urology | DX: N36.8 Other specified disorders of urethra (principal); Z01.818 Encounter for other preprocedural examination ==

== ENCOUNTER 2018-03-18 17:49 | Observation (INO) | payer BC, SELFPAY ==
[2018-03-18 12:19] VITALS: BP 122/88; PULSE 89; RESP 18; TEMP 36.9; O2SAT 94
[2018-03-18] MEDS: Lactated Ringers 1,000 ML 80 ML IV (12:40)
--- NOTE | 2018-03-18 14:09 | DI.RAD_ITS ---
SYMPTOM/DIAGNOSIS: KIDNEY STONES C-ARM FLUOROSCOPY: Fluoroscopy Time: 76.9sec Fluoroscopy was provided in the O.R. for Dr. Alicea while performing a retrograde examination. Please see procedure note for details.
[2018-03-18] MEDS: Omnipaque 300 MG/ML 50 ML BTL (15:00)
[2018-03-18] MEDS: Lidocaine 2% Jelly 11 ML SYR (15:00)
--- NOTE | 2018-03-18 15:59 | W.PM.DSUDISC ---
Discharge Plan Disposition Patient Disposition: HOME Condition: Stable Discharge Details Reason For Visit: (R) URETHERAL OBSTRUCTION Attending Provider: Goran Alicea Primary Care Provider: Iesha Vargas Home Meds and New Rx's Prescriptions: No Action hydrocodone-acetaminophen 10-325 mg tablet 1 tab PO BID MDD 1 tab PRN (Reason: pain) Qty: 14 RF: 0 multivitamin [Daily Multi-Vitamin] 1 EACH tablet 1 tab PO BID RF: 0 polyethylene glycol 3350 17 GM powder in packet 17 gm PO BID PRNRF: 0 cetirizine [Zyrtec] 10 MG tablet 10 mg PO DAILY RF: 0 dornase soumya [Pulmozyme] 1 MG/ML solution 2.5 ml IN BID RF: 0 pantoprazole 40 MG tablet,delayed release (DR/EC) 1 tab PO DAILY RF: 0 ergocalciferol (vitamin D2) [Vitamin D2] 50,000 UNIT capsule 1 tab PO DIRECTED RF: 0 sodium chloride 3 ML solution for nebulization 1 ea Inhalation BID RF: 0 fluticasone-salmeterol [Advair HFA] 12 GM HFA aerosol inhaler 2 puff IN DAILY RF: 0 aztreonam lysine [Cayston] 75 MG/ML solution for nebulization 1 inh Inhalation TID RF: 0 cceans-yetblyyq-vigjvqq [Creon] 1 EACH capsule,delayed release(DR/EC) 5 tab PO AC RF: 0 albuterol sulfate [ProAir RespiClick] 90 MCG aerosol powdr breath activated 2 puff Inhalation PRN PRNRF: 0 lumacaftor-ivacaftor [Orkambi] 1 EACH tablet 2 tab PO BID RF: 0 tamsulosin 0.4 mg capsule 0.4 mg PO DAILY Qty: 14 RF: 0 ibuprofen [IBU] 600 mg tablet 600 mg PO QID PRN (Reason: pain) Qty: 20 RF: 0 Discharge Instructions Additional Instructions: F/U or Sunday for stent removal - tell my office he has a string on his stent F/U appt in 4 to 6 weeks with renal ultrasound Discharge Orders Discharge Orders: Discharge Order (Routine); Ordered 03/18/18 Ordered By: Goran Alicea
[2018-03-18 16:30] VITALS: BP 124/84; PULSE 80; RESP 16; TEMP 35.3; O2SAT 97
--- NOTE | 2018-03-18 17:04 | ROE_ITS ---
DATE OF PROCEDURE: March 18, 2018 PREOPERATIVE DIAGNOSIS: Right ureteral stone. POSTOPERATIVE DIAGNOSIS: Same. PROCEDURE: Cystoscopy, right retrograde pyelogram, right flexible ureteroscopy with holmium laser of kidney stones, insert right ureteral stent. SURGEON: Goran Alicea M.D. ANESTHESIA: Spinal. COMPLICATIONS: None. ESTIMATED BLOOD LOSS: Minimal. HISTORY: This is a 32-year-old gentleman who has a history of cystic fibrosis. He has a finding of bilateral kidney stones. Recently he's had right-sided pain and right hydronephrosis, presumably due to a stone becoming lodged in his ureter. He presents for ureteroscopic stone manipulation. OPERATIVE REPORT: The patient is brought to the operating room on 03/18/18. After successful induct ion of spinal anesthesia, he was placed in the dorsal lithotomy position. His genitalia was prepped and draped. A 22 Khmer rigid cystoscope was passed through the urethra into the bladder. The urethra and bladde r were then inspected using the 30-degree lens. The pendulous, bulbous and membranous urethras all appeared normal. The prostatic urethra did not sh ow any lateral lobe enlargement. The bladder neck was entered and the bladder mucosa was inspected. The right ureteral orifice was id entified. A 6 Khmer access catheter was passed through the scope and maneuvered into the right uret eral orifice. A retrograde film was obtained. There appeared to be tortuosity and a filling defect in the proximal ureter. We advanced a Glidewire through the access catheter and maneuvered it up int o the upper pole calyx. We then passed a dual-lumen catheter over the initial wire and placed a second wire. We chose one of the wires as a working wire and the second one as a safety wire. We passed a ureteral access sheath over the working wire. We then passed the flexible ureteroscope u p the ureter. I didn't see any filling defects in the ureter at the time of ureteroscopy. Presumably the previous stone had been bumped back into the kidney. Multiple stones were seen in nearly each and every calyx . We treated each of these stones using a 272 micron holmium laser fiber. We were able to fracture the stones down to approximately the size of the fiber diameter itself. The largest fragment that we encountered was grasped in a Zero-Tip stone basket and removed in its en tirety. We reinspected the ureter and there did appear to be an abrasion of the ureteral mucosa related to th e access sheath. We decided to place a 4.8 Khmer variable-length stent. We positioned the stent wi th the proximal end in the upper pole calyx and the distal end curled within the bladder. We left th e safety string in place and brought it out through the urethra. We taped the string onto the dorsum of the penis. The stent will be removed later this week. Mr. Short tolerated this procedure well with no complications. cc: Iesha Vargas M.D.
[2018-03-18 17:17] VITALS: BP 113/78; PULSE 89; RESP 16; TEMP 36.2; O2SAT 96
[2018-03-18] MEDS: HYDROcodone 10/Acetaminophen 325 TAB PO (17:54)
[2018-03-18] MEDS: Phenazopyridine 200 MG TAB PO (17:54)
[2018-03-18 17:57] VITALS: BP 133/91; PULSE 72; RESP 16; TEMP 36.8; O2SAT 96
== END 2018-03-18 20:14 | disposition home or self-care (01) ==
LOC: MS 17:50
PROVIDERS: Admitting Provider Urology; PCP Family Medicine; Visit Provider Urology
PROC: 0TF38ZZ Fragmentation in Right Kidney Pelvis, Via Natural or Artificial Opening Endoscopic (ICD-10-PCS; CPT 52356; principal; 2018-03-18 13:30)
DX: N20.0 Calculus of kidney (principal); E84.9 Cystic fibrosis, unspecified
CPT/HCPCS: 52356; 74420; 82360; J0690; J1100; J1885; J2250; J3490; Q9967

== ENCOUNTER 2018-03-21 14:44 | Emergency (ER) | payer BC, SELFPAY ==
[2018-03-21 14:52] VITALS: BP 140/89; PULSE 68; RESP 16; TEMP 36.8; O2SAT 95
--- NOTE | 2018-03-21 15:13 | ED.GENADUL_ITS ---
Discharge Plan Disposition Patient Disposition: HOME Condition: Fair Discharge Details Chief Complaint: Urinary Clinical Impression: Pain due to ureteral stent Primary Care Provider: Iesha Vargas ED Provider: Irina Toure Home Meds and New Rx's Prescriptions: New ketorolac 10 mg tablet 10 mg PO Q8H PRN PRN (Reason: pain) 2 Days RF: 0 Continued hydrocodone-acetaminophen 10-325 mg tablet 1 tab PO BID MDD 1 tab PRN (Reason: pain) Qty: 14 RF: 0 oxybutynin chloride 5 mg tablet 5 mg PO TID PRN (Reason: bladder spasms) Qty: 10 RF: 0 multivitamin [Daily Multi-Vitamin] 1 EACH tablet 1 tab PO BID RF: 0 polyethylene glycol 3350 17 GM powder in packet 17 gm PO BID PRNRF: 0 cetirizine [Zyrtec] 10 MG tablet 10 mg PO DAILY RF: 0 Pulmozyme 1 MG/ML solution 2.5 ml IN BID RF: 0 pantoprazole 40 MG tablet,delayed release (DR/EC) 1 tab PO DAILY RF: 0 ergocalciferol (vitamin D2) [Vitamin D2] 50,000 UNIT capsule 1 tab PO DIRECTED RF: 0 sodium chloride 3 ML solution for nebulization 1 ea Inhalation BID RF: 0 Advair HFA 12 GM HFA aerosol inhaler 2 puff IN DAILY RF: 0 [place] 75 MG/ML solution for nebulization 1 inh Inhalation TID RF: 0 Creon 1 EACH capsule,delayed release(DR/EC) 5 tab PO AC RF: 0 ProAir RespiClick 90 MCG aerosol powdr breath activated 2 puff Inhalation PRN PRNRF: 0 [place] 1 EACH tablet 2 tab PO BID RF: 0 tamsulosin 0.4 mg capsule 0.4 mg PO DAILY Qty: 14 RF: 0 Discontinued ibuprofen [IBU] 600 mg tablet 600 mg PO QID PRN (Reason: pain) Qty: 20 RF: 0 Discharge Instructions Instructions: Abdominal Pain (ED) Additional Instructions: Encourage hydration. Please take toradol as prescribed. You may augment this with Tylenol. Please do not use NSAIDS (Ibuprofen). Please follow up with Dr. Alicea as scheduled, you may call with any concerns. If you develop new/worsening symptoms please seek care urgently once again. Referrals: Iesha Vargas [Primary Care Provider] - Goran Alicea MD [ [id number] STAFF PHYSICIAN] - Discharge Data Discharge Date/Time-TO BE ENTERED AT DEPARTURE: 03/21/18 16:50 Medical Decision Making Patient is a 32-year-old male presenting today with chief complaint of right lower quadrant pain. Patient had a stent placed after stone ablation last week by Dr. Alicea for right kidney stones. Was seen in the office today at which time his stent was removed. He reports that since that time he has had waxing and waning discomfort quickly, quite severe. Reports that the pain is quite similar, essentially more painful, the kidney stones he is experienced in the past. Is currently in a low all of his discomfort. States that his urine has been slightly pink. However, he denies any dysuria which she states is resolved since recent surgical intervention. Denies any fevers or chills. States that he has had nausea and vomiting associated with the spikes in the pain. Denies any change in bowel habits. Patient is status post appendectomy which was performed approximate 4 months ago[address] with Dr. Alicea. Discussed case with the patient. He advised that pain and symptoms are most consistent with ureteral spasms and advised Toradol. Reports that he has prescribed the patient narcotics and that these are already on board as well as anti-bladder spasmodics. He advised no imaging or no urinalysis as his recent interventions would skew these results. Advised that unless the patient's abdomen is significant for guarding or peritoneal findings, he would avoid further intervention at this time and would treat based on most likely source, that being ureteral spasms. He advised that the only other severe complication is typically leak with urine emptying into the abdomen. However, he advised that this typically takes several days to arise and is not an immediate change as is presenting with this patient per On exam, patient's abdomen is soft with no peritoneal findings. Does have some discomfort over the right lower quadrant. Fairly recent surgical incision is noted on the right lower quadrant but does appear to be healing well, consistent with recent appendectomy. No CVA tenderness. Denies any testicular pain Patient was treated with IM Toradol. Feels much improved after this. Dr. Alicea evaluated the patient feels that he is safe for discharge. He advised that I prescribe continued Toradol for the next 24-48 hours. Has asked the patient take the Toradol every 8 hours for the next 24 hours to help prevent recurrence of his discomfort. Patient was given strict return precautions. He will consult Dr. Alicea if symptoms persist. All of his questions and concerns were addressed and he is in agreement with this plan HPI General Mode of arrival: ambulatory . Date/Time Provider Initiated Documentation: 03/21/18 15:09 . Limitations to Documentation: no limitations . Information obtained by: patient . History of Present Illness 32 year old M presents to the emergency department with the chief complaint of RLQ pain, described as moderate, with intensity rated at 8. Quality is described as sharp and other (cramping and intermittent), and is localized to the abdomen. Patient reports no radiation. Patient started experiencing this hour(s) and it has been intermittent and now resolved. No relieving factors improve symptom(s), No exacerbating factors reported . Patient notes loss of appetite and nausea/vomiting; denies chest pain, cough, fever/chills, rash and shortness of breath. Patient did receive the following treatments prior to arrival, other (narcotic as prescribed by Dr. Alicea) Related Data Home Medications Medication Instructions Recorded Confirmed Advair HFA 2 puff IN DAILY 11/14/17 03/21/18 [place] 1 inh INHALATION TID 11/14/17 03/21/18 Creon 5 tab PO AC 11/14/17 03/21/18 Orkambi 2 tab PO BID 11/14/17 03/21/18 ProAir RespiClick 2 puff INHALATION PRN PRN 11/14/17 03/21/18 Pulmozyme 2.5 ml IN BID 11/14/17 03/21/18 cetirizine [Zyrtec] 10 mg PO DAILY 11/14/17 03/21/18 ergocalciferol (vitamin D2) 1 tab PO DIRECTED 11/14/17 03/21/18 [Vitamin D2] multivitamin [Daily Multi-Vitamin] 1 tab PO BID 11/14/17 03/21/18 pantoprazole 1 tab PO DAILY 11/14/17 03/21/18 polyethylene glycol 3350 17 gm PO BID PRN 11/14/17 03/21/18 sodium chloride 1 ea INHALATION BID 11/14/17 03/21/18 tamsulosin 0.4 mg PO DAILY #14 cap 03/08/18 03/21/18 hydrocodone 10 mg-acetaminophen 1 tab PO BID PRN #14 tab MDD 1 tab 03/21/18 03/21/18 325 mg tablet ketorolac 10 mg PO Q8H PRN PRN 2 Days tab 03/21/18 oxybutynin chloride 5 mg tablet 5 mg PO TID PRN #10 tab 03/21/18 03/21/18 Previous Rx's Medication Instructions Recorded tamsulosin 0.4 mg PO DAILY #14 cap 03/08/18 hydrocodone 10 mg-acetaminophen 1 tab PO BID PRN #14 tab MDD 1 tab 03/21/18 325 mg tablet ketorolac 10 mg PO Q8H PRN PRN 2 Days tab 03/21/18 oxybutynin chloride 5 mg tablet 5 mg PO TID PRN #10 tab 03/21/18 Allergies Allergy/AdvReac Type Severity Reaction Status Date / Time No Known Allergies Allergy Unverified 03/18/18 12:04 General Stated Complaint: Urinary CLAIRE: 3 Review of Systems Constitutional Reports as per HPI, Denies chills, Denies fatigue, Denies fever(s) and Denies headache(s) ENT Denies headache(s) Cardiovascular Reports as per HPI, Denies chest pain and Denies dyspnea Respiratory Denies dyspnea Gastrointestinal Reports as per HPI, Reports abdominal pain, Denies change in bowel habits, Denies change in stool character, Reports nausea and Reports vomiting Genitourinary Reports as per HPI, Reports hematuria (states since procedure urine has been pink), Denies dysuria, Denies flank pain, Denies penile discharge, Denies scrotal swelling, Denies testicular mass and Denies testicular pain Musculoskeletal Reports as per HPI and Denies back pain Integumentary/Breasts Reports as per HPI and Denies rash Neurologic Denies headache(s) Endocrine Denies fatigue PFSH Appendectomy (11/14/17) Social History Smoking/Tobacco Use Status: Never Exam Const General: cooperative, healthy appearing, comfortable, no acute distress and well developed Nutritional Appearance: average body habitus and well nourished Orientation: alert and awake HENMT Head: normal to inspection Mouth: moist mucous membranes Resp Effort & Inspection: normal respiratory effort, able to speak in complete sentences and no respiratory distress Auscultation: clear to auscultation bilaterally, no rales, no rhonchi and no wheezes Cardio Rate: regular rate Rhythm: regular rhythm Heart Sounds: S1 normal and S2 normal GI Inspection: normal to inspection, no edema, non-distended, incision (well healed RLQ incision) and no obesity Palpation: soft, no hepatosplenomegaly, no aortic enlargement, not firm, no guarding and tender in the RLQ (tenderness is maximal superior to McBurney's point); not at McBurney's point, Mejia's sign negative, obturator sign negative, psoas sign negative and with no rebound tenderness Percussion: normal to percussion Auscultation: hypoactive bowel sounds Back/Spine/Pelvis Back: no CVA tenderness Skin General skin exam: no rashes or lesions noted Trauma: no lacerations or abrasions Neuro General: alert and awake Cognition: normal cognition Speech: speech normal Gait: normal gait Psych Appearance: grossly normal and well kempt Mental Status: mental status grossly normal Speech and Movement: speech and movement normal Course Vital Signs Temperature 36.8 C 03/21/18 14:52 Pulse 68 03/21/18 14:52 Respiratory Rate 16 03/21/18 14:52 Blood Pressure 140/89 03/21/18 14:52 Pulse Oximetry 95 03/21/18 14:52 Temperature 36.8 C 03/21/18 14:52 Temperature Source Skin 03/21/18 14:52 Pulse 68 03/21/18 14:52 Respiratory Rate 16 03/21/18 14:52 Respiratory Effort 03/21/18 14:57 Blood Pressure 140/89 03/21/18 14:52 Blood Pressure Position Sitting 03/21/18 14:52 Pulse Oximetry 95 03/21/18 14:52 Oxygen Delivery Method Room Air 03/21/18 14:52 Oxygen Flow Rate 0 03/21/18 14:52 Pain Level 8 03/21/18 14:52
[2018-03-21] MEDS: Ketorolac 30 MG/ML VIAL IM (15:44)
--- NOTE | 2018-03-21 15:46 | NUR.NOTE ---
patient medicated per Md order Nursing Note:
[2018-03-21 16:46] VITALS: BP 126/76; PULSE 76; RESP 16; O2SAT 97
== END 2018-03-21 16:50 | disposition home or self-care (01) ==
PROVIDERS: Emergency Provider Physician Assistant; PCP Family Medicine
DX: T83.89XA Other specified complication of genitourinary prosthetic devices, implants and grafts, initial encounter (principal); R10.31 Right lower quadrant pain
CPT/HCPCS: 96372; 99284; J1885

== ENCOUNTER 2018-12-02 22:24 | Emergency (ER) | payer BC, SELFPAY ==
[2018-12-02 22:29] VITALS: BP 117/90; PULSE 78; RESP 18; TEMP 36.2; O2SAT 93
--- NOTE | 2018-12-02 23:09 | ED.GENADUL_ITS ---
Discharge Plan Disposition Patient Disposition: HOME Condition: Stable Discharge Details Chief Complaint: FlankPain Clinical Impression: Renal colic Primary Care Provider: Iesha Vargas ED Provider: Gaurang Tirado Home Meds and New Rx's Prescriptions: New ketorolac 10 mg tablet 10 mg PO Q6H PRN (Reason: pain) 5 Days Qty: 20 RF: 0 Continued multivitamin [Daily Multi-Vitamin] 1 EACH tablet 1 tab PO BID RF: 0 polyethylene glycol 3350 17 GM powder in packet 17 gm PO BID PRNRF: 0 cetirizine [Zyrtec] 10 MG tablet 10 mg PO DAILY RF: 0 Pulmozyme 1 MG/ML solution 2.5 ml IN BID RF: 0 pantoprazole 40 MG tablet,delayed release (DR/EC) 1 tab PO DAILY RF: 0 ergocalciferol (vitamin D2) [Vitamin D2] 50,000 UNIT capsule 1 tab PO DIRECTED RF: 0 sodium chloride 3 ML solution for nebulization 1 ea Inhalation BID RF: 0 [place] 75 MG/ML solution for nebulization 1 inh Inhalation TID RF: 0 Creon 1 EACH capsule,delayed release(DR/EC) 5 tab PO AC RF: 0 ProAir RespiClick 90 MCG aerosol powdr breath activated 2 puff Inhalation PRN PRNRF: 0 tamsulosin 0.4 mg capsule 0.4 mg PO DAILY Qty: 14 RF: 0 sulfamethoxazole-trimethoprim 800-160 mg Tablet See Rx Instructions .ROUTE .COMPLEX RF: 0 Discharge Instructions Instructions: Renal Colic (ED) Additional Instructions: follow up with urology especially if you have intermittent pain if you have severe worsening pain, peristent vomit or feel more ill return to the emergency department Medical Decision Making 33 yo male who has a hx of CF and kidney stones comes in with acute onset of left flank pain that started suddenly tonight around 5pm. The pain was 10/10 and similar to prior renal colic, came here and pain quickly reseolved here without intervention. During my exam he is in no distress and speaking in full sentences with soft nontender abdomen and no cva tenderness. Given his hx I suspect renal colic. Had long discussion about confirming with CT but given age and risks of radiation patient made informed decision to hold on CT at this time. Will obtain UA to eval for possible evidence of infection though seems unlikely given no fevers/chills or dysuria pt passed stone in urine he gave here and still has no pain. He states oral toradol is the only thing that helps with pain when he gets it so will prescribe him this and have him f/u with urology Differential Diagnosis renal colic, kidney stone, muscle spasm Medical Records Medical records reviewed: Yes I reviewed the patient's medical records. Lab Data Lab results reviewed: Yes I reviewed the patient's lab results. HPI General Mode of arrival: ambulatory . Date/Time Provider Initiated Documentation: 12/02/18 22:25 . Limitations to Documentation: no limitations . Information obtained by: patient . History of Present Illness 33 year old M presents to the emergency department with the chief complaint of left flank pain, described as severe, with intensity rated at 10. Quality is described as stabbing, Patient reports no radiation. Patient started experiencing this hour(s) (4) and it has been now resolved. No relieving factors improve symptom(s), No exacerbating factors reported . Patient notes nausea/vomiting. Patient did receive the following treatments prior to arrival, none Related Data Home Medications Medication Instructions Recorded Confirmed [place] 1 inh INHALATION TID 11/14/17 12/02/18 Creon 5 tab PO AC 11/14/17 12/02/18 ProAir RespiClick 2 puff INHALATION PRN PRN 11/14/17 12/02/18 Pulmozyme 2.5 ml IN BID 11/14/17 12/02/18 cetirizine [Zyrtec] 10 mg PO DAILY 11/14/17 12/02/18 ergocalciferol (vitamin D2) 1 tab PO DIRECTED 11/14/17 12/02/18 [Vitamin D2] multivitamin [Daily Multi-Vitamin] 1 tab PO BID 11/14/17 12/02/18 pantoprazole 1 tab PO DAILY 11/14/17 12/02/18 polyethylene glycol 3350 17 gm PO BID PRN 11/14/17 12/02/18 sodium chloride 1 ea INHALATION BID 11/14/17 12/02/18 tamsulosin 0.4 mg PO DAILY #14 cap 03/08/18 12/02/18 ketorolac 10 mg PO Q6H PRN 5 Days #20 tab 12/02/18 sulfamethoxazole-trimethoprim See Rx Instructions .ROUTE .COMPLEX 12/02/18 12/02/18 Previous Rx's Medication Instructions Recorded tamsulosin 0.4 mg PO DAILY #14 cap 03/08/18 ketorolac 10 mg PO Q6H PRN 5 Days #20 tab 12/02/18 Allergies Allergy/AdvReac Type Severity Reaction Status Date / Time No Known Allergies Allergy Unverified 12/02/18 22:34 General Stated Complaint: FlankPain CLAIRE: 3 Review of Systems Review of Systems All systems reviewed & are unremarkable except as noted in HPI and below Constitutional Denies chills, Denies fever(s) and Denies weakness Cardiovascular Denies chest pain and Denies dyspnea Respiratory Denies cough and Denies dyspnea Gastrointestinal Denies abdominal pain, Denies nausea and Denies vomiting Musculoskeletal Denies joint swelling Neurologic Denies weakness [facility] Social History Smoking/Tobacco Use Status: Never Alcohol Intake: never Drug use: Never Substance use type: does not use Do you feel safe at home: Yes Do you feel safe in your relationship?: Yes Exam Const General: no acute distress Orientation: alert HENMT Head: normal to inspection Ears: external ears normal General nose exam: external nose normal Mouth: moist mucous membranes Eyes General: appearance normal, both eyes and all related structures Neck Neck: normal visual inspection Resp Effort & Inspection: normal respiratory effort and able to speak in complete sentences Cardio Rate: regular rate GI Palpation: soft and nontender Skin General skin exam: no rashes or lesions noted Neuro General: alert and oriented x3 Extrem General: normal to inspection Psych Mental Status: mental status grossly normal Course Vital Signs Temperature 36.2 C L 12/02/18 22:29 Pulse 78 12/02/18 22:29 Respiratory Rate 18 12/02/18 22:29 Blood Pressure 117/90 12/02/18 22:29 Pulse Oximetry 93 L 12/02/18 22:29 Temperature 36.2 C L 12/02/18 22:29 Temperature Source Skin 12/02/18 22:29 Pulse 78 12/02/18 22:29 Respiratory Rate 18 12/02/18 22:29 Respiratory Effort 12/02/18 22:42 Blood Pressure 117/90 12/02/18 22:29 Pulse Oximetry 93 L 12/02/18 22:29 Oxygen Delivery Method Room Air 12/02/18 22:29 Oxygen Flow Rate 0 12/02/18 22:29 Pain Level 2 12/02/18 22:45
[2018-12-02 23:20] LABS: Bilirubin Negative (Negative); Blood Large (Negative); Clarity Cloudy (Clear); Glucose Negative (Negative); Ketones Negative (Negative); Leukocyte Esterase Negative (Negative); Nitrite Negative (Negative); Specific Gravity 1.015 (1.005-1.025); Urobilinogen 0.2 EU/dL (Up TO 0.2)
[2018-12-02 23:28] LABS: C & S Indicated? No; RBC >50 (0-2)
== END 2018-12-02 23:38 | disposition home or self-care (01) ==
PROVIDERS: Emergency Provider Emergency Medicine; PCP Family Medicine
DX: N23 Unspecified renal colic (principal); N20.0 Calculus of kidney; R11.2 Nausea with vomiting, unspecified; Z87.442 Personal history of urinary calculi; E84.9 Cystic fibrosis, unspecified
CPT/HCPCS: 99283; 81003; 81015

== ENCOUNTER 2019-06-04 07:40 | Outpatient (CLI) | payer BC, SELFPAY ==
[2019-06-04 09:03] LABS: ALT 86 U/L (16-63); AST 48 U/L (15-37); Albumin 4.2 g/dL (3.4-5.0); Alkaline Phosphatase 121 U/L (46-116); Bilirubin, Direct 0.17 mg/dL (0.00-0.20); Total Protein 8.1 g/dL (6.4-8.2)
== END 2019-06-04 08:00 ==
PROVIDERS: PCP Family Medicine; Visit Provider Family Medicine
DX: E84.9 Cystic fibrosis, unspecified (principal)
CPT/HCPCS: 36415; 80076

== ENCOUNTER 2019-12-19 11:10 | Outpatient (CLI) | payer BC, SELFPAY ==
[2019-12-19 14:11] LABS: Abs Immature Grans 0.01 10^3/uL (0.0-0.06); Absolute Basophil Count 0.04 10^3/uL (0.0-0.2); Absolute Eosinophil Count 0.39 10^3/uL (0.0-0.7); Absolute Monocyte Count 0.55 10^3/uL (0.1-0.8); Basophils % 0.6; Eosinophils % 6.1; HCT 41.5 % (40.0-50.0); HGB 14.5 g/dL (13.5-17.5); Immature Grans % 0.2; MCHC 34.9 % (32.0-36.0); MCV 85.7 fL (80-95); MPV 9.6 fL (8.0-11.0); Monocytes % 8.6; Neutrophils % 59.5; Nucleated RBC 0 %; Platelet Count 213 10^3/uL (130-400); RBC 4.84 10^6/uL (4.36-5.78); RDW 12.7 % (11.8-14.1); RDW-SD 39.1 fL; WBC 6.39 10^3/uL (4.4-10.8)
[2019-12-19 14:15] LABS: Prothrombin Time 10.5 sec (9.3-11.0)
[2019-12-19 14:52] LABS: ALT 31 U/L (16-63); AST 20 U/L (15-37); Albumin 3.9 g/dL (3.4-5.0); Alkaline Phosphatase 106 U/L (46-116); Anion Gap 7.4 mmol/L (3-11); BUN 10 mg/dL (7-18); CO2 27.6 mmol/L (21.0-32.0); CREATININE 1.18 mg/dL (0.70-1.30); Calcium 8.9 mg/dL (8.5-10.1); Chloride 103 mmol/L (98-107); Glucose 122 mg/dL (74-106); Potassium 4.1 mmol/L (3.5-5.1); Sodium 138 mmol/L (136-145); Total Protein 7.1 g/dL (6.4-8.2)
[2019-12-19 14:58] LABS: GGT 38 U/L (15-85)
[2019-12-22 06:00] LABS: Vitamin D 25 Total 24.2 ng/ml (30-100)
[2019-12-22 11:29] LABS: IgE 18 IU/mL (<158)
[2019-12-22 22:42] LABS: Zinc, Serum 0.76 mcg/mL (0.66-1.10)
== END 2019-12-19 11:30 ==
PROVIDERS: PCP Family Medicine; Visit Provider Internal Medicine Pulmonary Disease
DX: E84.9 Cystic fibrosis, unspecified (principal)
CPT/HCPCS: 36415; 80053; 82306; 82785; 82977; 84446; 84590; 84630; 85025; 85610

== ENCOUNTER 2020-01-21 01:41 | Outpatient (CLI) | payer BC, SELFPAY ==
--- NOTE | 2020-01-21 | DI.US_ITS ---
EXAM: US RENAL CLINICAL HISTORY: NEPHROLITHIASIS,N20.0, KIDNEY STONES. TECHNIQUE: Mike scale, color and spectral Doppler were used. COMPARISON: CT ABD PELVIS WITH CONTRAST from 11/14/2017 CT ABD PELVIS WITH CONTRAST from 11/14/2017 CT DI.CTAPWO from 01/07/2018 CT DI.CTAPWO from 01/07/2018 US US RENAL from 03/10/2019 FINDINGS: Renal size in cm: Right: 10.2. Left: 9.8. Echogenicity: Normal. Hydronephrosis: No. Cyst or mass: No. Nephrolithiasis: Bilateral echogenic foci in the kidneys. The largest is on the right and measures 0 .6 cm. Other findings: None. Bladder:Normal. Ureteral jets: Right: Visualized and unremarkable. Left: Not visualized on this examination. Prevoid vol:82 cc Postvoid vol: The patient was unable to void during the examination. Renal color flow: Symmetric and within normal limits. IMPRESSION: Bilateral nephrolithiasis. No hydronephrosis. DATA REPOSITORY:
== END 2020-01-21 02:01 ==
PROVIDERS: PCP Family Medicine; Visit Provider Urology
DX: N20.0 Calculus of kidney (principal)
CPT/HCPCS: 76770

== ENCOUNTER 2020-07-05 13:48 | Emergency (ER) | payer BC, SELFPAY ==
[2020-07-05 13:53] VITALS: BP 125/86; PULSE 85; RESP 18; TEMP 36.8; O2SAT 96
--- NOTE | 2020-07-05 14:00 | DI.US_ITS ---
EXAM: US RENAL CLINICAL HISTORY: left flank pain, hx of stones TECHNIQUE: Ultrasound of both kidneys performed using standard protocol. COMPARISON: US US RENAL from 01/21/2020 FINDINGS: RIGHT KIDNEY: Measures 9.9 cm in length. No cysts evident. Normal cortical thickness and corticomedullary different iation .No solid masses There is a 7 millimeter hyperechoic focus at the midpole cortex level consistent with a nonobstructiv e calculus. LEFT KIDNEY: Measures 10.6 cm in length. No cysts evident. Normal cortical thickness and corticomedullary differe ntiaion. No solids masses. There presently no intrarenal calculi nor hydronephrosis on the left side .. There is, however, a calculus evident at the left ureterovesical junction measuring approximately 6 millimeters. This most probably corresponds to a calculus which was seen in the left kidney on prior study. URINARY BLADDER: Prevoid volume is 52 cc Postvoid volume is not performed cc No evidence of bladder mass nor diverticuli. Ureterovesical jets: Both identified today. IMPRESSION: 1. Nonobstructive 7 millimeter calculus midpole right kidney, unchanged. 2. There is now calculus at left ureterovesical junction which corresponds 1 calculi seen in the lef t kidney on the prior study. There is no hydronephrosis on either side. Cortical thickness is rosa l in both kidneys. No perinephric fluid. DATA REPOSITORY:
--- NOTE | 2020-07-05 14:23 | ED.GENADUL_ITS ---
Discharge Plan Disposition Patient Disposition: HOME Condition: Good Discharge Details Clinical Impression: Ureterolithiasis Primary Care Provider: Iesha Vargas ED Provider: Avis Cantu Home Meds and New Rx's Prescriptions: New oxycodone 5 mg capsule 5 mg PO TID PRNQty: 10 RF: 0 ondansetron HCl [Zofran] 4 mg tablet 4 mg PO Q8H PRNQty: 10 RF: 0 No Action multivitamin [Daily Multi-Vitamin] 1 EACH tablet 1 tab PO BID RF: 0 polyethylene glycol 3350 17 GM powder in packet 17 gm PO BID PRNRF: 0 cetirizine [Zyrtec] 10 MG tablet 10 mg PO DAILY RF: 0 Pulmozyme 1 MG/ML solution 2.5 ml IN BID RF: 0 pantoprazole 40 MG tablet,delayed release (DR/EC) 1 tab PO DAILY RF: 0 ergocalciferol (vitamin D2) [Vitamin D2] 50,000 UNIT capsule 1 tab PO DIRECTED RF: 0 sodium chloride 3 ML solution for nebulization 1 ea Inhalation BID RF: 0 [place] 75 MG/ML solution for nebulization 1 inh Inhalation TID RF: 0 Creon 1 EACH capsule,delayed release(DR/EC) 5 tab PO AC RF: 0 ProAir RespiClick 90 MCG aerosol powdr breath activated 2 puff Inhalation PRN PRNRF: 0 sulfamethoxazole-trimethoprim 800-160 mg Tablet See Rx Instructions .ROUTE .COMPLEX RF: 0 Discharge Instructions Additional Instructions: Zofran as needed for nausea and vomiting Ibuprofen and Tylenol for pain control Strain your urine Follow-up with your urologist Please return with fever, chills, worsening pain, or with any new or worsening Medical Decision Making Patient with a suspected stone at his UVJ, nonobstructive, no hydro- Has follow-up with Dr. Alicea Urinalysis does not show evidence of secondary infection Hematuria, likely secondary to ureterolithiasis, patient is stable for discharge home and request discharge home Given small amount of opiate analgesia with of addiction discussed We will follow up with Dr. Alicea, urology in the outpatient setting Patrick supplied Differential Diagnosis Differential Diagnosis: Ureterolithiasis, pyelonephritis, cystitis, chronic pain Lab Data Lab results reviewed: Yes I reviewed the patient's lab results. HPI This 35-year-old male presents with history of cystic fibrosis, ureterolithiasis, with left flank pain. He was told that he likely has 2 stones in his left ureter several months ago. He thinks he passed a 6 mm stone 2 weeks ago and his pain is similar now. He states he has had gross hematuria which is since resolved. He denies fever or chills. He denies chest pain or shortness of breath. He states the pain is similar to prior kidney stones. Denies any additional complaints at this time. General Date/Time Provider Initiated Documentation: 07/05/20 13:50 . Related Data Home Medications Medication Instructions Recorded Confirmed [place] 1 inh INHALATION TID 11/14/17 07/05/20 Creon 5 tab PO AC 11/14/17 07/05/20 ProAir RespiClick 2 puff INHALATION PRN PRN 11/14/17 07/05/20 Pulmozyme 2.5 ml IN BID 11/14/17 07/05/20 cetirizine [Zyrtec] 10 mg PO DAILY 11/14/17 07/05/20 ergocalciferol (vitamin D2) 1 tab PO DIRECTED 11/14/17 07/05/20 [Vitamin D2] multivitamin [Daily Multi-Vitamin] 1 tab PO BID 11/14/17 07/05/20 pantoprazole 1 tab PO DAILY 11/14/17 07/05/20 polyethylene glycol 3350 17 gm PO BID PRN 11/14/17 07/05/20 sodium chloride 1 ea INHALATION BID 11/14/17 07/05/20 sulfamethoxazole-trimethoprim See Rx Instructions .ROUTE .COMPLEX 12/02/18 07/05/20 ondansetron HCl [Zofran] 4 mg PO Q8H PRN #10 tab 07/05/20 oxycodone 5 mg PO TID PRN #10 cap 07/05/20 Previous Rx's Medication Instructions Recorded ondansetron HCl [Zofran] 4 mg PO Q8H PRN #10 tab 07/05/20 oxycodone 5 mg PO TID PRN #10 cap 07/05/20 Allergies Allergy/AdvReac Type Severity Reaction Status Date / Time No Known Allergies Allergy Unverified 07/05/20 13:57 General Stated Complaint: Urinary CLAIRE: 3 Review of Systems Narrative: Review of systems obtained x7 aside from where indicated in HPI [facility] Surgical History Appendectomy (11/14/17) Social History Smoking/Tobacco Use Status: Never Smoking risk assessment performed?: Yes Alcohol Intake: never Drug use: Never Substance use type: does not use Do you feel safe at home: Yes Do you feel safe in your relationship?: Yes Exam Const General: cooperative and no acute distress Chest Chest: normal inspection of the chest Resp Effort & Inspection: normal respiratory effort Auscultation: clear to auscultation bilaterally Cardio Rate: regular rate Rhythm: regular rhythm GI Other: Left CVA tenderness Skin General skin exam: no rashes or lesions noted Neuro General: patient alert and patient oriented x3 Course Vital Signs Vital signs: Vital Signs Temperature 36.8 C 07/05/20 13:53 Pulse 85 07/05/20 13:53 Respiratory Rate 18 07/05/20 13:53 Blood Pressure 125/86 07/05/20 13:53 Pulse Oximetry 96 07/05/20 13:53 Temperature 36.8 C 07/05/20 13:53 Temperature Source Oral 07/05/20 13:53 Pulse 85 07/05/20 13:53 Respiratory Rate 18 07/05/20 13:53 Respiratory Effort Non-Labored 07/05/20 13:56 Blood Pressure 125/86 07/05/20 13:53 Blood Pressure Position Sitting 07/05/20 13:53 Pulse Oximetry 96 07/05/20 13:53 Oxygen Delivery Method Room Air 07/05/20 13:53 Oxygen Flow Rate 0 07/05/20 13:53 Pain Level 8 07/05/20 14:20
[2020-07-05 14:25] LABS: Abs Immature Grans 0.01 10^3/uL (0.0-0.06); Absolute Basophil Count 0.03 10^3/uL (0.0-0.2); Absolute Eosinophil Count 0.17 10^3/uL (0.0-0.7); Absolute Lymphocyte Count 1.54 10^3/uL (1.2-3.4); Absolute Monocyte Count 0.58 10^3/uL (0.1-0.8); Absolute Neutrophil Count 5.01 10^3/uL (1.2-6.7); Basophils % 0.4; Eosinophils % 2.3; HCT 43.8 % (40.0-50.0); HGB 15.2 g/dL (13.5-17.5); Immature Grans % 0.1; MCH 30.4 pg (27.0-33.0); MCHC 34.7 % (32.0-36.0); MCV 87.6 fL (80-95); MPV 9.3 fL (8.0-11.0); Monocytes % 7.9; Neutrophils % 68.3; Nucleated RBC 0 %; Platelet Count 239 10^3/uL (130-400); RDW 12.4 % (11.8-14.1); RDW-SD 39.9 fL; WBC 7.34 10^3/uL (4.4-10.8)
[2020-07-05] MEDS: Normal Saline 1,000 ML 1000 ML IV (14:25)
[2020-07-05] MEDS: fentaNYL 100 MCG/2 ML VIAL 50 MCG IVP (14:25)
[2020-07-05 14:42] LABS: ALT 45 U/L (16-63); AST 22 U/L (15-37); Albumin 3.8 g/dL (3.4-5.0); Alkaline Phosphatase 105 U/L (46-116); Anion Gap 7.8 mmol/L (3-11); BUN 13 mg/dL (7-18); Bilirubin, Total 0.8 mg/dL (0.2-1.0); CO2 28.2 mmol/L (21.0-32.0); CREATININE 1.1 mg/dL (0.70-1.30); Calcium 8.9 mg/dL (8.5-10.1); Chloride 103 mmol/L (98-107); Glucose 132 mg/dL (74-106); Lipase 25 U/L (73-393); Potassium 4.2 mmol/L (3.5-5.1); Sodium 139 mmol/L (136-145); Total Protein 7.7 g/dL (6.4-8.2)
--- NOTE | 2020-07-05 15:18 | DI.RAD_ITS ---
EXAM: XR ABDOMEN FLAT PLATE CLINICAL HISTORY: left flank pain, hx of stones. TECHNIQUE: 2D digital imaging was performed. COMPARISON: No exams were available for comparison FINDINGS: Bowel gas pattern is nonspecific in the supine position. There is air seen throughout the colon but the colon is not distended nor edematous appearing on this plain film study. No obvious calcificatio ns seen over the kidneys nor along the course the ureters. Regional bones appear unremarkable. IMPRESSION: DATA REPOSITORY: RADIATION DOSE DELIVERED:
[2020-07-05 15:50] LABS: Bilirubin Negative (Negative); Blood Moderate (Negative); Clarity Clear (Clear); Glucose Negative (Negative); Ketones Negative (Negative); Leukocyte Esterase Negative (Negative); Nitrite Negative (Negative); Specific Gravity 1.025 (1.005-1.025); Urobilinogen 0.2 EU/dL (Up TO 0.2)
[2020-07-05 15:58] LABS: Bacteria Negative HPF (Negative); C & S Indicated? No; Casts Negative LPF (Negative); Crystals Negative HPF (Negative); Epithelial Cells Rare HPF (Negative); Mucus Negative (Negative); RBC 0-2 HPF (0-2); WBC Negative HPF (0-5)
[2020-07-05] MEDS: Ketorolac 15 MG/ML VIAL IVP (16:36)
[2020-07-05 16:40] VITALS: BP 119/88; PULSE 95; RESP 18; TEMP 36.9; O2SAT 96
== END 2020-07-05 16:54 | disposition home or self-care (01) ==
PROVIDERS: Emergency Provider Physician Assistant; PCP Family Medicine
DX: N20.1 Calculus of ureter (principal); Z87.442 Personal history of urinary calculi
CPT/HCPCS: 36415; 76770; 80053; 83690; 96361; 96374; 96375; 99284; 74018; 81003; 81015; 85025; J1885; J3010

== ENCOUNTER 2020-08-10 02:38 | Outpatient (CLI) | payer BC, SELFPAY ==
[2020-08-10 14:06] LABS: ALT 64 U/L (16-63); AST 25 U/L (15-37); Albumin 4.3 g/dL (3.4-5.0); Alkaline Phosphatase 118 U/L (46-116); Bilirubin, Direct 0.2 mg/dL (0.0-0.2); Bilirubin, Total 1.1 mg/dL (0.2-1.0); Glucose, 2 Hour PP 108 mg/dL; Total Protein 7.8 g/dL (6.4-8.2)
[2020-08-12 16:00] LABS: Free Retinol (Vitamin A) 51.2 mcg/dL (32.5-78.0)
[2020-08-13 00:17] LABS: Vitamin E, Serum 9.7 mg/L (5.5 - 17.0)
== END 2020-08-10 02:39 | disposition home or self-care (01) ==
LOC: LBO 02:38
PROVIDERS: PCP Family Medicine; Visit Provider Internal Medicine Pulmonary Disease
DX: E84.9 Cystic fibrosis, unspecified (principal)
CPT/HCPCS: 36415; 80076; 82947; 84446; 84590

== ENCOUNTER 2020-12-23 01:38 | Emergency (ER) | payer BC, SELFPAY ==
[2020-12-23 01:41] VITALS: BP 145/105; PULSE 84; RESP 20; TEMP 36; O2SAT 98
--- NOTE | 2020-12-23 01:45 | DI.CT_ITS ---
Exam(s) CT RENAL COLIC WO EXAM: CT RENAL COLIC WO CLINICAL HISTORY: R flank pain. TECHNIQUE: Imaging Protocol: Axial computed tomography images with coronal and sagittal reformatted images were created and reviewed. COMPARISON: CT DI.CTAPWO from 01/07/2018 FINDINGS: ABDOMEN: Lung Bases: Normal where visualized. Liver: Normal density. No measurable mass. Gallbladder and biliary tract: The gallbladder is contracted. There is stranding in the surrounding fat. No focal fluid collection is seen. No stone is identified. Pancreas: There is complete fatty replacement of the pancreas. There is a 2.4 x 1.8 x 3.7 cm soft ti ssue mass in the location of the uncinate process. There is mild stranding in the surrounding fat. No focal fluid collection is seen. Spleen: The spleen measures 13.3 cm in length. Kidneys: Normal size, contour and axis.There is bilateral nephrolithiasis. No evidence of hydronephr osis. No masses seen. Adrenal glands: No mass is seen. Lymph nodes: Within normal limits. Abdominal Aorta: Abdominal portion non-dilated. PELVIS: Bladder:Symmetric distention, no gross wall thickening. Bowel: No obstruction or bowel wall thickening. Status post appendectomy. Peritoneal cavity: No ascites, collection or mesenteric inflammatory response. No free air. Reproductive organs: Within normal limits. Bones: Within normal limits. Soft Tissues: Small fat containing umbilical hernia. IMPRESSION: 1. Marked pancreatic lipomatosis. 2. 2.4 cm soft tissue mass in the region of the uncinate process. Differential considerations includ e neoplasm, inflammatory mass or phlegmon. 3. Contracted gallbladder with fat stranding around the gallbladder and pancreas.Acute pancreatitis a nd/or cholecystitis should be considered. No cholelithiasis is seen. Gallbladder ultrasound may be obtained for further evaluation. 4. Bilateral nephrolithiasis. No evidence of hydronephrosis. RADIATION DOSE DELIVERED: 660.63mGy.cm Total DLP DATA REPOSITORY: All CT scans at this facility are submitted to the National Radiology Data Registry (NRDR) Dose Index Registry (DIR) with the [employer] (ACR). RADIATION OPTIMIZATION: All CT scans at this facility use at least one of these dose optimization te chniques: automated exposure control; mA and/or kV adjustment per patient size (includes targeted exa ms where dose is matched to clinical indication); or iterative reconstruction.
--- NOTE | 2020-12-23 01:50 | ED.GENADUL_ITS ---
Discharge Plan Disposition Patient Disposition: HOME Condition: Improving Discharge Details Clinical Impression: Renal colic on right side Primary Care Provider: Iesha Vargas ED Provider: Temo Whaley Home Meds and New Rx's Prescriptions: Continued tamsulosin 0.4 mg capsule 0.4 mg PO DAILY Qty: 10 RF: 0 ondansetron 8 mg tablet,disintegrating 8 mg PO Q8H PRN (Reason: nausea and vomiting) Qty: 20 RF: 0 multivitamin [Daily Multi-Vitamin] 1 EACH tablet 1 tab PO BID RF: 0 polyethylene glycol 3350 17 GM powder in packet 17 gm PO BID PRNRF: 0 cetirizine [Zyrtec] 10 MG tablet 10 mg PO DAILY RF: 0 Pulmozyme 1 MG/ML solution 2.5 ml IN BID RF: 0 pantoprazole 40 MG tablet,delayed release (DR/EC) 1 tab PO DAILY RF: 0 ergocalciferol (vitamin D2) [Vitamin D2] 50,000 UNIT capsule 1 tab PO DIRECTED RF: 0 sodium chloride 3 ML solution for nebulization 1 ea Inhalation BID RF: 0 [place] 75 MG/ML solution for nebulization 1 inh Inhalation TID RF: 0 Creon 1 EACH capsule,delayed release(DR/EC) 5 tab PO AC RF: 0 ProAir RespiClick 90 MCG aerosol powdr breath activated 2 puff Inhalation PRN PRNRF: 0 sulfamethoxazole-trimethoprim 800-160 mg Tablet See Rx Instructions .ROUTE .COMPLEX RF: 0 Discontinued oxycodone 5 mg capsule 5 - 10 mg PO Q4-5H MDD 8 PRN (Reason: pain) Qty: 30 RF: 0 Discharge Instructions Instructions: Kidney Stones (ED) Additional Instructions: We have asked for your CAT scan images to be pushed to [facility] to the attention of Dr. Winters. As you discussed final readings will be available in approximately 24 hours time. Return develop a fever, recurrent or worsening pain, or any other acute co ncerns. May take the provided oxycodone as needed for severe or breakthrough pain. Continue your regular medications. Return to the ER for any acute concerns. Medical Decision Making This is a 35-year-old male with a history of previous kidney stones who presents with the abrupt onset of right flank pain this morning, intermittent and becomin g more constant throughout the day. He took Flomax in the morning again at midnight, now presents for persistent pain. He is afebrile and well appearing, interactive. Does seem most consistent with u reteral colic. IV access established, patient given fluids, antiemetic, analgesia. Referred for laboratory testing and CT imaging. Labs: White count seven, hematocrit 41, platelets 202. Chemistries unremarkable. Urinalysis without abnormality. CT shows severe pancreatic lipomatosis, mass of the pancreatic head. Mild fat stranding around the pancreatic mass. Bilateral nonobstructive nephrolithiasis. Patient does have a known history of cystic fibrosis. Patient's pain significantly improved with Toradol. Diminishing to essentially zero. Discussed with patient final reading of radiology reports will be accomplished after in-house staff have reviewed the images. Discussed there is concern for pancreatic head mass. As such, we have pushed the images to [facility] as the patient has follow-up with his cystic fibrosis care team there on Sunday. He is stable and improved HPI General Mode of arrival: ambulatory . Date/Time Provider Initiated Documentation: 12/23/20 01:39 . Limitations to Documentation: no limitations . Information obtained by: patient . History of Present Illness 35 year old M presents to the emergency department with the chief complaint of Right flank pa in, described as moderate, severe and similar to prior episodes, Quality is described as stabbing and constant, and is localized to the back and right. Patient abdomen. Patient started experiencing this hour(s) and it has been constant. No relieving factors improve symptom(s), No exacerbating factors reported . Patient notes denies chest pain and fever/chills. Patient did receive the following treatments prior to arrival, other (Flomax) Related Data Home Medications Medication Instructions Recorded Confirmed Steven 1 inh INHALATION TID 11/14/17 07/05/20 Creon 5 tab PO AC 11/14/17 12/23/20 ProAir RespiClick 2 puff INHALATION PRN PRN 11/14/17 12/23/20 Pulmozyme 2.5 ml IN BID 11/14/17 12/23/20 cetirizine [Zyrtec] 10 mg PO DAILY 11/14/17 12/23/20 ergocalciferol (vitamin D2) 1 tab PO DIRECTED 11/14/17 07/05/20 [Vitamin D2] multivitamin [Daily Multi-Vitamin] 1 tab PO BID 11/14/17 12/23/20 pantoprazole 1 tab PO DAILY 11/14/17 12/23/20 polyethylene glycol 3350 17 gm PO BID PRN 11/14/17 12/23/20 sodium chloride 1 ea INHALATION BID 11/14/17 12/23/20 sulfamethoxazole-trimethoprim See Rx Instructions .ROUTE .COMPLEX 12/02/18 07/05/20 ondansetron 8 mg disintegrating 8 mg PO Q8H PRN #20 tab 07/09/20 07/09/20 tablet tamsulosin 0.4 mg capsule 0.4 mg PO DAILY #10 cap 07/09/20 12/23/20 Previous Rx's Medication Instructions Recorded ondansetron 8 mg disintegrating 8 mg PO Q8H PRN #20 tab 07/09/20 tablet tamsulosin 0.4 mg capsule 0.4 mg PO DAILY #10 cap 07/09/20 Allergies Allergy/AdvReac Type Severity Reaction Status Date / Time tobramycin AdvReac Severe Other (See Unverified 12/23/20 01:45 Comment) General Stated Complaint: FlankPain CLAIRE: 4 Review of Systems Narrative: No fever. Nauseated without vomiting. Otherwise well. Eight systems reviewed and negative except as noted PFSH Surgical History Appendectomy (11/14/17) Social History Smoking/Tobacco Use Status: Never Smoking risk assessment performed?: Yes Alcohol Intake: current Alcohol Intake frequency: holidays/special occasions only Alcohol type: beer Drug use: Never Substance use type: does not use Do you feel safe at home: Yes Do you feel safe in your relationship?: Yes Exam Narrative Exam Narrative: GEN: awake, alert, oriented 3. Pleasant, well groomed, interactive. HEAD: Normocephalic, atraumatic EYES: PERRL, EOMI NECK: Full ROM, no WILIAN, no menigismus CHEST/RESP: Nontender, clear to auscultation bilateral, no wheeze/rhonchi/rales CARDIOVASCULAR: RRR, no murmur, rub tim. 2+ Rad pulse bilateral ABDOMEN: Soft, right mid abdomen tender to palpation, no mass. +Bowel sounds EXT: Full ROM, no edema, no rash Neuro: Grossly normal neurologic exam, conversant, interactive. Psych: Speech fluent, thoughts congruent, affect normal Course Vital Signs Vital signs: Vital Signs Temperature 36.0 C L 12/23/20 01:41 Pulse 84 12/23/20 01:41 Respiratory Rate 20 12/23/20 01:41 Blood Pressure 145/105 H 12/23/20 01:41 Pulse Oximetry 98 12/23/20 01:41 Temperature 36.0 C L 12/23/20 01:41 Temperature Source Temporal Artery Scan 12/23/20 01:41 Pulse 84 12/23/20 01:41 Respiratory Rate 20 12/23/20 01:41 Respiratory Effort 12/23/20 01:48 Blood Pressure 145/105 H 12/23/20 01:41 Blood Pressure Position Standing 12/23/20 01:41 Pulse Oximetry 98 12/23/20 01:41 Oxygen Delivery Method Room Air 12/23/20 01:41 Oxygen Flow Rate 0 12/23/20 01:41 Pain Level 10 12/23/20 01:48
[2020-12-23] MEDS: Ondansetron 4 MG/2 ML VIAL IVP (02:01)
[2020-12-23] MEDS: Ketorolac 30 MG/ML VIAL 15 MG IVP (02:02)
[2020-12-23] MEDS: Normal Saline 1,000 ML 1000 ML IV (02:02)
[2020-12-23 02:08] LABS: Abs Immature Grans 0.02 10^3/uL (0.0-0.06); Absolute Basophil Count 0.04 10^3/uL (0.0-0.2); Absolute Eosinophil Count 0.34 10^3/uL (0.0-0.7); Absolute Lymphocyte Count 2.03 10^3/uL (1.2-3.4); Absolute Monocyte Count 1.23 10^3/uL (0.1-0.8); Absolute Neutrophil Count 3.98 10^3/uL (1.2-6.7); Basophils % 0.5; Eosinophils % 4.5; HCT 41.6 % (40.0-50.0); HGB 14.4 g/dL (13.5-17.5); Immature Grans % 0.3; Lymphocytes % 26.6; MCH 29.6 pg (27.0-33.0); MCHC 34.6 % (32.0-36.0); MCV 85.4 fL (80-95); MPV 9.7 fL (8.0-11.0); Monocytes % 16.1; Nucleated RBC 0 %; Platelet Count 202 10^3/uL (130-400); RBC 4.87 10^6/uL (4.36-5.78); RDW 12.4 % (11.8-14.1); RDW-SD 38.7 fL; WBC 7.64 10^3/uL (4.4-10.8)
[2020-12-23 02:16] LABS: Anion Gap 9.8 mmol/L (3-11); BUN 10 mg/dL (7-18); CO2 28.2 mmol/L (21.0-32.0); CREATININE 1.2 mg/dL (0.70-1.30); Calcium 9.2 mg/dL (8.5-10.1); Chloride 103 mmol/L (98-107); Glucose 131 mg/dL (74-106); Potassium 3.8 mmol/L (3.5-5.1); Sodium 141 mmol/L (136-145)
[2020-12-23 02:51] LABS: Bilirubin Negative (Negative); Blood Negative (Negative); Clarity Clear (Clear); Glucose Negative (Negative); Ketones Negative (Negative); Leukocyte Esterase Negative (Negative); Nitrite Negative (Negative); Specific Gravity 1.025 (1.005-1.025); Urobilinogen 0.2 EU/dL (Up TO 0.2)
[2020-12-23 02:53] VITALS: BP 134/84; PULSE 68; RESP 18; TEMP 36.8; O2SAT 98
--- NOTE | 2020-12-23 02:57 | DI.VRAD_ITS ---
PROCEDURE INFORMATION: Exam: CT Abdomen And Pelvis Without Contrast Exam date and time: 12/23/2020 1:50 AM Age: 35 years old Clinical indication: Prior surgery; Surgery date: 6+ months; Surgery type: Appendectomy; Patient HX: HX of stones, R flank pain TECHNIQUE: Imaging protocol: Computed tomography of the abdomen and pelvis without contrast. Radiation optimization: All CT scans at this facility use at least one of these dose optimization techniques: automated exposure control; mA and/or kV adjustment per patient size (includes targeted exams where dose is matched to clinical indication); or iterative reconstruction. COMPARISON: CT ABD PELVIS WITH CONTRAST 11/14/2017 5:30 PM FINDINGS: Lungs: Lung bases are clear. Heart: Negative for pericardial effusion. Mild pericardial calcifications noted. Liver: Unremarkable noncontrast liver imaging. Gallbladder and bile ducts: Gallbladder is collapsed indistinct. Fat stranding is noted around the gallbladder. Negative for biliary ductal dilatation. Pancreas: The pancreas is severely atrophic and fatty replaced. A mass is present at the expected location of the uncinate process, 2.4 x 1.8 x 3.7 cm. Mild fat stranding is also noted around the expected location of the pancreas. There are no fluid collections observed. A dilated pancreatic duct is not observed. Spleen: The spleen is mildly elongated, 13.3 cm. Adrenal glands: Normal. No mass. Kidneys and ureters: Negative for hydronephrosis. Nonobstructing stones are present in both renal collecting systems, up to 3 mm diameter. Ureters are not dilated. No stones are observed within the ureters. Stomach and bowel: Unremarkable stomach. Nondilated small bowel. Fecalization of distal small bowel contents noted. Submucosal fat deposition noted in the distal colon. Negative for focal inflammatory changes around the colon. Appendix: The appendix is not observed. Surgical clips noted at the base of the cecum. Intraperitoneal space: Unremarkable. No free air. No significant fluid collection. Vasculature: Unremarkable. No abdominal aortic aneurysm. Lymph nodes: Unremarkable. No enlarged lymph nodes. Urinary bladder: Unremarkable as visualized. Reproductive: Unremarkable as visualized. Bones/joints: Unremarkable. No acute fracture. Soft tissues: Unremarkable. IMPRESSION: 1. Mass at the pancreatic head/uncinate process, concerning for neoplasm. Inflammatory mass/phlegmon not excluded. 2. Severe pancreatic lipomatosis. Correlate for any history of cystic fibrosis or type 1 diabetes. Other etiologies also considered. 3. Mild fat stranding around the pancreatic mass and collapsed gallbladder. Negative for biliary ductal dilatation. Negative for calcified gallstones. Pancreatitis and/or cholecystitis considered. Vascular congestion related to the mass also considered. 4. Bilateral nonobstructive nephrolithiasis. Negative for hydronephrosis or dilated ureters. Dictated and Authenticated by: Gaurang Alicea MD. Ordering:SHANNON Plascencia MD
== END 2020-12-23 03:32 | disposition home or self-care (01) ==
LOC: ER 03:16
PROVIDERS: Emergency Provider Emergency Medicine; PCP Family Medicine
DX: N23 Unspecified renal colic (principal); R93.3 Abnormal findings on diagnostic imaging of other parts of digestive tract; Z87.442 Personal history of urinary calculi
CPT/HCPCS: 36415; 80048; 96361; 96374; 96375; 99284; 74176; 81003; 85025; J1885; J2405

== ENCOUNTER 2020-12-23 11:54 | Emergency (ER) | payer BC, SELFPAY ==
[2020-12-23 12:13] VITALS: BP 165/98; PULSE 72; RESP 18; TEMP 36.5; O2SAT 95
--- NOTE | 2020-12-23 12:33 | DI.US_ITS ---
Exam(s) US ABDOMEN LIMITED EXAM: US ABDOMEN LIMITED CLINICAL HISTORY: right sided abdomen pain, ?cholecystitis TECHNIQUE: Ultrasound abdomen performed using standard protocol. COMPARISON: No exams were available for comparison FINDINGS: PANCREAS: Normal where visualized. LIVER: Normal. Hepatopedal flow in the Portal Vein. The liver measures 13 cm in length. GALLBLADDER: The gallbladder is contracted limiting evaluation. No evidence of cholelithiasis. No ev idence of wall thickening. No pericholecystic fluid identified. BILIARY SYSTEM: Common bile duct measures < 7 mm. No intrahepatic biliary ductal dilation. PENN'S SIGN: Negative. Right kidney: The right kidney measures 10.5 cm in length. There are 2 echogenic shadowing foci in t he superior pole. The larger measures 4 mm. The smaller measures 3 mm. These are suspicious for no nobstructing stones. No evidence of hydronephrosis. No renal mass or cyst identified. ASCITES: None seen. IMPRESSION: 1. Right nephrolithiasis. 2. Contracted gallbladder limiting evaluation. No cholelithiasis or biliary ductal dilatation. DATA REPOSITORY:
--- NOTE | 2020-12-23 12:36 | ED.GENADUL_ITS ---
Discharge Plan Disposition Patient Disposition: HOME Condition: Stable Discharge Details Clinical Impression: Abdominal pain Primary Care Provider: Iesha Vargas ED Provider: Gaurang Tirado Home Meds and New Rx's Prescriptions: New ketorolac 10 mg tablet 10 mg PO TID PRN (Reason: pain) 5 Days Qty: 30 RF: 0 Continued tamsulosin 0.4 mg capsule 0.4 mg PO DAILY Qty: 10 RF: 0 ondansetron 8 mg tablet,disintegrating 8 mg PO Q8H PRN (Reason: nausea and vomiting) Qty: 20 RF: 0 multivitamin [Daily Multi-Vitamin] 1 EACH tablet 1 tab PO BID RF: 0 polyethylene glycol 3350 17 GM powder in packet 17 gm PO BID PRNRF: 0 cetirizine [Zyrtec] 10 MG tablet 10 mg PO DAILY RF: 0 Pulmozyme 1 MG/ML solution 2.5 ml IN BID RF: 0 pantoprazole 40 MG tablet,delayed release (DR/EC) 1 tab PO DAILY RF: 0 ergocalciferol (vitamin D2) [Vitamin D2] 50,000 UNIT capsule 1 tab PO DIRECTED RF: 0 sodium chloride 3 ML solution for nebulization 1 ea Inhalation BID RF: 0 [place] 75 MG/ML solution for nebulization 1 inh Inhalation TID RF: 0 Creon 1 EACH capsule,delayed release(DR/EC) 5 tab PO AC RF: 0 ProAir RespiClick 90 MCG aerosol powdr breath activated 2 puff Inhalation PRN PRNRF: 0 sulfamethoxazole-trimethoprim 800-160 mg Tablet See Rx Instructions .ROUTE .COMPLEX RF: 0 Discharge Instructions Additional Instructions: your ultrasoud and lab work did not show any new concerning findings follow up with your specialists at [facility] if you feel more ill, have severe worsening pain or persistent vomit return to the emergency department Medical Decision Making 35 yo male with hx of cystic fibrosis and prior kidney stones comes in with abdomen pain. He states around 8am yesterday woke up with right sided pain and was seen around 1am this morning for this pain. HAd labs and renal colic ct which showed below findings remarkable for pancreatic mass. HE felt better with toradol and pain returned so came back here. Denies fevers, chest pain, vomit. He denies smoking, alcohol or drug use. HE is in no distress on exam, has ruq tenderness without guarding, no distention. Given location of pain and continued pain will obtain labs to evaluate for pancreatitis and start with ultrasound to evaluate for cholecystitis. labs and u/s show no acute findings and pain resolved with toradol, no longer having tenderness. HE states he gets pain like this every so often and normally is controlled with toradol. He is stable for d/c, advised to f/u with his [place] [facility] [place] and return precautions given IMPRESSION: 1. Marked pancreatic lipomatosis. 2. 2.4 cm soft tissue mass in the region of the uncinate process. Differential considerations include neoplasm, inflammatory mass or phlegmon. 3. Contracted gallbladder with fat stranding around the gallbladder and pancreas. Acute pancreatitis and/or cholecystitis should be considered. No cholelithiasis is seen. Gallbladder ultrasound may be obtained for further evaluation. 4. Bilateral nephrolithiasis. No evidence of hydronephrosis. Differential Diagnosis Differential Diagnosis: pancreatitis, cholecystitis Medical Records Medical records reviewed: Yes I reviewed the patient's medical records. Imaging Data Radiologic Study: Attestation: I personally reviewed and interpreted this imaging study as follows: Imaging: Ultrasound Radiologist's impression: no acute findings HPI General Mode of arrival: ambulatory . Date/Time Provider Initiated Documentation: 12/23/20 12:26 . Limitations to Documentation: no limitations . Information obtained by: patient . History of Present Illness 35 year old M presents to the emergency department with the chief complaint of abdominal pain, described as moderate, and is localized to the abdomen. Patient reports no radiation. Patient started experiencing this day(s) (1) and it has been intermittent. No relieving factors improve symptom(s), No exacerbating fa ctors reported . Patient notes no other symptoms.. Patient did receive the following treatments prior to arrival, none Related Data Home Medications Medication Instructions Recorded Confirmed [place] 1 inh INHALATION TID 11/14/17 07/05/20 Creon 5 tab PO AC 11/14/17 12/23/20 ProAir RespiClick 2 puff INHALATION PRN PRN 11/14/17 12/23/20 Pulmozyme 2.5 ml IN BID 11/14/17 12/23/20 cetirizine [Zyrtec] 10 mg PO DAILY 11/14/17 12/23/20 ergocalciferol (vitamin D2) 1 tab PO DIRECTED 11/14/17 07/05/20 [Vitamin D2] multivitamin [Daily Multi-Vitamin] 1 tab PO BID 11/14/17 12/23/20 pantoprazole 1 tab PO DAILY 11/14/17 12/23/20 polyethylene glycol 3350 17 gm PO BID PRN 11/14/17 12/23/20 sodium chloride 1 ea INHALATION BID 11/14/17 12/23/20 sulfamethoxazole-trimethoprim See Rx Instructions .ROUTE .COMPLEX 12/02/18 07/05/20 ondansetron 8 mg disintegrating 8 mg PO Q8H PRN #20 tab 07/09/20 07/09/20 tablet tamsulosin 0.4 mg capsule 0.4 mg PO DAILY #10 cap 07/09/20 12/23/20 ketorolac 10 mg PO TID PRN 5 Days #30 tab 12/23/20 Previous Rx's Medication Instructions Recorded ondansetron 8 mg disintegrating 8 mg PO Q8H PRN #20 tab 07/09/20 tablet tamsulosin 0.4 mg capsule 0.4 mg PO DAILY #10 cap 07/09/20 ketorolac 10 mg PO TID PRN 5 Days #30 tab 12/23/20 Allergies Allergy/AdvReac Type Severity Reaction Status Date / Time tobramycin AdvReac Severe Other (See Unverified 12/23/20 12:15 Comment) General Stated Complaint: Urinary CLAIRE: 3 Review of Systems All systems reviewed & are unremarkable except as noted in HPI and below Constitutional Constitutional: Denies chills, Denies fever(s) and Denies weakness Cardiovascular Cardiovascular: Denies chest pain and Denies dyspnea Respiratory Respiratory: Denies cough and Denies dyspnea Gastrointestinal Gastrointestinal: Denies vomiting Musculoskeletal Musculoskeletal: Denies joint swelling Neurologic Neurologic: Denies weakness Psychiatric Psychiatric: Denies depression [facility] Surgical History Appendectomy (11/14/17) Social History Smoking/Tobacco Use Status: Never Smoking risk assessment performed?: Yes Alcohol Intake: current Alcohol Intake frequency: holidays/special occasions only Alcohol type: beer Drug use: Never Substance use type: does not use Do you feel safe at home: Yes Do you feel safe in your relationship?: Yes Exam Const General: no acute distress Orientation: alert HENWY Head: normal to inspection Ears: external ears normal General nose exam: external nose normal Mouth: moist mucous membranes Eyes General: appearance normal, both eyes and all related structures Neck Neck: normal visual inspection Resp Effort & Inspection: normal respiratory effort and able to speak in complete sentences Cardio Rate: regular rate GI Palpation: soft Skin General skin exam: no rashes or lesions noted Neuro General: patient alert and patient oriented x3 Extrem General: normal to inspection Psych Mental Status: mental status grossly normal Course Vital Signs Vital signs: Vital Signs Temperature 36.5 C 12/23/20 12:13 Pulse 72 12/23/20 12:13 Respiratory Rate 18 12/23/20 12:13 Blood Pressure 165/98 H 12/23/20 12:13 Pulse Oximetry 95 12/23/20 12:13 Temperature 36.5 C 12/23/20 12:13 Temperature Source Temporal Artery Scan 12/23/20 12:13 Pulse 72 12/23/20 12:13 Respiratory Rate 18 12/23/20 12:13 Respiratory Effort Non-Labored 12/23/20 12:16 Blood Pressure 165/98 H 12/23/20 12:13 Blood Pressure Position Sitting 12/23/20 12:13 Pulse Oximetry 95 12/23/20 12:13 Oxygen Delivery Method Room Air 12/23/20 12:13 Oxygen Flow Rate 0 12/23/20 12:13 Pain Level 10 12/23/20 12:13
[2020-12-23 13:02] LABS: Abs Immature Grans 0.02 10^3/uL (0.0-0.06); Absolute Basophil Count 0.03 10^3/uL (0.0-0.2); Absolute Eosinophil Count 0.18 10^3/uL (0.0-0.7); Absolute Monocyte Count 0.74 10^3/uL (0.1-0.8); Absolute Neutrophil Count 5.39 10^3/uL (1.2-6.7); Basophils % 0.4; Eosinophils % 2.4; HCT 43.4 % (40.0-50.0); HGB 14.9 g/dL (13.5-17.5); Immature Grans % 0.3; Lactate 0.7 mmol/L (0.6-1.4); Lymphocytes % 14.7; MCH 29.2 pg (27.0-33.0); MCHC 34.3 % (32.0-36.0); MCV 85.1 fL (80-95); MPV 9.4 fL (8.0-11.0); Monocytes % 9.9; Neutrophils % 72.3; Nucleated RBC 0 %; Platelet Count 199 10^3/uL (130-400); RDW 12.4 % (11.8-14.1); RDW-SD 38.6 fL; WBC 7.46 10^3/uL (4.4-10.8)
[2020-12-23] MEDS: Normal Saline 1,000 ML 1000 ML IV (13:09)
[2020-12-23] MEDS: Ketorolac 15 MG/ML VIAL IVP (13:10)
[2020-12-23 13:20] LABS: Bilirubin, Direct 0.2 mg/dL (0.0-0.2)
[2020-12-23 13:21] LABS: ALT 56 U/L (16-63); AST 20 U/L (15-37); Alkaline Phosphatase 109 U/L (46-116); Anion Gap 7.1 mmol/L (3-11); BUN 8 mg/dL (7-18); Bilirubin, Total 0.9 mg/dL (0.2-1.0); CO2 28.9 mmol/L (21.0-32.0); Calcium 9.2 mg/dL (8.5-10.1); Chloride 102 mmol/L (98-107); Glucose 123 mg/dL (74-106); Lipase 22 U/L (73-393); Potassium 3.6 mmol/L (3.5-5.1); Sodium 138 mmol/L (136-145); Total Protein 7.9 g/dL (6.4-8.2)
[2020-12-23 13:58] VITALS: BP 144/84; PULSE 72; RESP 16; TEMP 36.8; O2SAT 96
[2020-12-23 14:45] VITALS: BP 142/97; PULSE 85; RESP 18; O2SAT 96
== END 2020-12-23 14:55 | disposition home or self-care (01) ==
PROVIDERS: Emergency Provider Emergency Medicine; PCP Family Medicine
DX: R10.11 Right upper quadrant pain (principal)
CPT/HCPCS: 36415; 80053; 83690; 96361; 96374; 99284; 76705; 82247; 82248; 83605; 83735; 85025; J1885

== ENCOUNTER 2021-06-07 09:29 | Emergency (ER) | payer OTHER, SELFPAY ==
[2021-06-07 09:36] VITALS: BP 108/82; PULSE 99; RESP 16; TEMP 36.7; O2SAT 97
--- NOTE | 2021-06-07 09:43 | ED.GENADUL_ITS ---
Discharge Plan Disposition Patient Disposition: HOME Condition: Good Discharge Details Clinical Impression: Muscle strain of left foot, Muscle strain of left knee Primary Care Provider: Iesha Vargas ED Provider: Avis Cantu Home Meds and New Rx's Prescriptions: Continued tamsulosin 0.4 mg capsule 0.4 mg PO DAILY Qty: 10 0RF ondansetron 8 mg tablet,disintegrating 8 mg PO Q8H PRN (Reason: nausea and vomiting) Qty: 20 0RF multivitamin [Daily Multi-Vitamin] 1 EACH tablet 1 tab PO BID 0RF polyethylene glycol 3350 17 GM powder in packet 17 gm PO BID PRN0RF cetirizine [Zyrtec] 10 MG tablet 10 mg PO DAILY 0RF Pulmozyme 1 MG/ML solution 2.5 ml IN BID 0RF pantoprazole 40 MG tablet,delayed release (DR/EC) 1 tab PO DAILY 0RF ergocalciferol (vitamin D2) [Vitamin D2] 50,000 UNIT capsule 1 tab PO DIRECTED 0RF Label Comments: pt. states he no longer takes sodium chloride 3 ML solution for nebulization 1 ea Inhalation BID 0RF [place] 75 MG/ML solution for nebulization 1 inh Inhalation TID 0RF Creon 1 EACH capsule,delayed release(DR/EC) 5 tab PO AC 0RF ProAir RespiClick 90 MCG aerosol powdr breath activated 2 puff Inhalation PRN PRN0RF sulfamethoxazole-trimethoprim 800-160 mg Tablet See Rx Instructions .ROUTE .COMPLEX 0RF Rx Instructions: take on opposite months as [place] Discharge Instructions Instructions: Muscle Strain (ED) Additional Instructions: Take hngr-gib-psehawo pain medications as needed Ice, elevate, rest Repeat assessment in 1 week with persistent discomfort Please return earlier should you have new or worsening complaints Your x-rays today do not show evidence of fracture Stand Alone Forms: Work Release Referrals: Jeff Wan MD [ [facility] STAFF PHYSICIAN] - Medical Decision Making Patient given crutches and a boot Orthopedic referral X-rays interpreted by radiology and reviewed by me without acute abnormality Return precautions discussed and patient expressed understanding Discharged home with steady gait Amco-osz-gdhdcaq analgesia as needed comfort Medical Records Medical records reviewed: Yes I reviewed the patient's medical records. HPI General Date/Time Provider Initiated Documentation: 06/07/21 09:39 . HPI Narrative: This 36-year-old male presents after twisting injury to his left knee and ankle. He reportedly slipped on ice. He denies any head injury or any additional complaints at that time. The event occurred last evening. Denies any strength or sensation. Denies any additional complaints at this time. Related Data Home Medications Medication Instructions Recorded Confirmed albuterol sulfate 90 mcg/actuation 2 puff INHALATION PRN PRN 11/14/17 06/07/21 breath activated powder inhaler (ProAir RespiClick) aztreonam lysine 75 mg/mL solution 1 inh INHALATION TID 11/14/17 06/07/21 for nebulization ([place]) cetirizine 10 mg tablet (Zyrtec) 10 mg PO DAILY 11/14/17 06/07/21 dornase soumya 1 mg/mL solution for 2.5 ml IN BID 11/14/17 06/07/21 inhalation (Pulmozyme) ergocalciferol (vitamin D2) 1,250 1 tab PO DIRECTED 11/14/17 06/07/21 mcg (50,000 unit) capsule (Vitamin D2) zdcqjg-sjooxaar-ffusmlj 5 tab PO AC 11/14/17 06/07/21 36,000-114,000-180,000 unit capsule,delay rel (Creon) multivitamin (Daily Multi-Vitamin) 1 tab PO BID 11/14/17 06/07/21 pantoprazole 40 mg tablet,delayed 1 tab PO DAILY 11/14/17 06/07/21 release polyethylene glycol 3350 17 gram 17 gm PO BID PRN 11/14/17 06/07/21 oral powder packet sodium chloride 0.9 % for 1 ea INHALATION BID 11/14/17 12/23/20 nebulization sulfamethoxazole 800 See Rx Instructions .ROUTE .COMPLEX 12/02/18 06/07/21 mg-trimethoprim 160 mg tablet ondansetron 8 mg disintegrating 8 mg PO Q8H PRN #20 tab 07/09/20 06/07/21 tablet tamsulosin 0.4 mg capsule 0.4 mg PO DAILY #10 cap 07/09/20 06/07/21 Previous Rx's Medication Instructions Recorded ondansetron 8 mg disintegrating 8 mg PO Q8H PRN #20 tab 07/09/20 tablet tamsulosin 0.4 mg capsule 0.4 mg PO DAILY #10 cap 07/09/20 Allergies Allergy/AdvReac Type Severity Reaction Status Date / Time tobramycin AdvReac Severe Other (See Unverified 06/07/21 09:39 Comment) General Stated Complaint: Orthopedic CLAIRE: 4 Review of Systems All systems reviewed & are unremarkable except as noted in HPI and below PFSH All Active Problems (Updated 06/07/21 @ 10:52 by NADINE Valles) Renal colic on right side (Acute) Abdominal pain (Acute) Muscle strain of left foot (Acute) Muscle strain of left knee (Acute) Ureterolithiasis (Acute) S/P appendectomy (Acute) Cystic fibrosis (Chronic) Social History Smoking/Tobacco Use Status: Never Smoking risk assessment performed?: Yes Alcohol Intake: current Alcohol Intake frequency: holidays/special occasions only Alcohol type: beer Drug use: Never Substance use type: does not use Do you feel safe at home: Yes Do you feel safe in your relationship?: Yes Exam Const General: comfortable HENMT Head: normal to inspection Resp Effort & Inspection: normal respiratory effort Cardio Rate: regular rate Skin General skin exam: no rashes or lesions noted Neuro General: patient alert and patient oriented x3 Extrem Other: Tenderness with palpation to left knee laterally without visible sign of trauma, tenderness to lateral left foot without visible evidence of trauma, no tib-fib pain, no femur or left hip pain Neurovascularly intact Course Vital Signs Vital signs: Vital Signs Temperature 36.7 C 06/07/21 09:36 Pulse 99 H 06/07/21 09:36 Respiratory Rate 16 06/07/21 09:36 Blood Pressure 108/82 06/07/21 09:36 Pulse Oximetry 97 06/07/21 09:36 Temperature 36.7 C 06/07/21 09:36 Temperature Source Skin 06/07/21 09:36 Pulse 99 H 06/07/21 09:36 Respiratory Rate 16 06/07/21 09:36 Respiratory Effort 06/07/21 09:36 Blood Pressure 108/82 06/07/21 09:36 Blood Pressure Position Sitting 06/07/21 09:36 Pulse Oximetry 97 06/07/21 09:36 Oxygen Delivery Method Room Air 06/07/21 09:36 Oxygen Flow Rate 0 06/07/21 09:36 Pain Level 8 06/07/21 09:36
--- NOTE | 2021-06-07 09:45 | DI.RAD_ITS ---
Exam(s) XR KNEE LT 3V AP,LAT,COLE EXAM: XR KNEE LT 3V AP,LAT,COLE CLINICAL HISTORY: left knee pain, laterally after twisting. TECHNIQUE: 2D digital imaging was performed of the left knee. Three images were obtained. AP, AP t unnel and lateral views were obtained. COMPARISON: No previous for comparison. FINDINGS: BONES: No acute fracture is present. No bony destructive lesion is seen. JOINTS: The knee is normally aligned. No joint effusion is seen. SOFT TISSUE: Normal. IMPRESSION: Normal radiographs of the left knee. DATA REPOSITORY: RADIATION DOSE DELIVERED:
--- NOTE | 2021-06-07 09:45 | DI.RAD_ITS ---
Exam(s) XR FOOT LT COMPLETE EXAM: XR FOOT LT COMPLETE CLINICAL HISTORY: foot pain laterally twisting. TECHNIQUE: 2D digital imaging was performed of the left foot. Three images were obtained. AP, obli que and lateral views were obtained. COMPARISON: No exams were available for comparison FINDINGS: BONES: No acute fracture is present. No bony destructive lesion is seen. JOINTS: No dislocation present. SOFT TISSUE: Normal. IMPRESSION: Unremarkable radiographs of the left foot. DATA REPOSITORY: RADIATION DOSE DELIVERED:
[2021-06-07 11:01] VITALS: BP 127/91; PULSE 76; TEMP 36.4; O2SAT 96
== END 2021-06-07 11:17 | disposition home or self-care (01) ==
PROVIDERS: Emergency Provider Physician Assistant; PCP Family Medicine
DX: S96.812A Strain of other specified muscles and tendons at ankle and foot level, left foot, initial encounter (principal); S86.812A Strain of other muscle(s) and tendon(s) at lower leg level, left leg, initial encounter; W00.0XXA Fall on same level due to ice and snow, initial encounter
CPT/HCPCS: 29515; 73562; 99284; 73630; 99283

== ENCOUNTER 2021-10-20 23:58 | Emergency (ER) | payer BC, SELFPAY ==
[2021-10-21 00:04] VITALS: BP 138/90; PULSE 59; RESP 18; TEMP 36.4; O2SAT 98
--- NOTE | 2021-10-21 00:09 | ED.GENADUL_ITS ---
Discharge Plan Disposition Patient Disposition: HOME Condition: Good Discharge Details Clinical Impression: Acute right flank pain Primary Care Provider: Iesha Vargas ED Provider: Yahir Painter Home Meds and New Rx's Prescriptions: New tamsulosin [Flomax] 0.4 mg capsule 0.4 mg PO DAILY Qty: 7 0RF No Action multivitamin [Daily Multi-Vitamin] 1 EACH tablet 1 tab PO BID polyethylene glycol 3350 17 GM powder in packet 17 gm PO BID PRN cetirizine [Zyrtec] 10 MG tablet 10 mg PO DAILY Pulmozyme 1 MG/ML solution 2.5 ml IN BID pantoprazole 40 MG tablet,delayed release (DR/EC) 1 tab PO DAILY ergocalciferol (vitamin D2) [Vitamin D2] 50,000 UNIT capsule 1 tab PO DIRECTED Label Comments: pt. states he no longer takes sodium chloride 3 ML solution for nebulization 1 ea Inhalation BID [place] 75 MG/ML solution for nebulization 1 inh Inhalation TID Creon 1 EACH capsule,delayed release(DR/EC) 5 tab PO AC ProAir RespiClick 90 MCG aerosol powdr breath activated 2 puff Inhalation PRN PRN sulfamethoxazole-trimethoprim 800-160 mg Tablet See Rx Instructions .ROUTE .COMPLEX Rx Instructions: take on opposite months as [place] Trikafta 100-50-75 mg(d) /150 mg (n) tablets, sequential PO Discharge Instructions Instructions: Flank Pain (ED) Additional Instructions: At this time your pain appears to be improved with the medication therapy. It is likely that this may be one of your multiple kidney stones that you have had. Please continue to take Tylenol and Motrin at home as needed for pain. Take the Flomax as prescribed. This is been sent to your pharmacy on file. Please continue to drink plenty of fluids and stay well-hydrated. Please follow-up closely with your urologist. If your symptoms persist or worsen please return immediately for reassessment. Today through shared decision-making process we have decided to hold off on CT imaging. If your symptoms do return you may require imaging at that time. If you notice any worsening of your symptoms, or any new symptoms such as vomiting, diarrhea, fever, chills, shortness of breath, chest pain, numbness, weakness, or fainting , please return immediately to the emergency department for reevaluation. Please follow up with your primary care provider as soon as possible for reassessment and reevaluation. As always, it was a pleasure participating in your medical care today. Referrals: Iesha Vargas [Primary Care Provider] - Goran Alicea MD [ [facility] STAFF PHYSICIAN] - Medical Decision Making This is a pleasant 36-year-old male with a past medical history of cystic fibrosis, appendectomy, multiple kidney stones in the past, who presents today for right flank pain for the last hour and a half. Patient states that it started in the right flank with a gradual transition around the flank more anteriorly. He denies any vomiting or diarrhea. He states that this feels identical to his multiple previous kidney stones. He has not taken any Tylenol, Motrin, or Flomax. He denies any vomiting or diarrhea. He denies any current genital pain. No other complaints at this time. Physical exam demonstrates right CVA tenderness. No abdominal tenderness on exam though. No genital tenderness. Patient has had multiple CT scans of his abdomen and pelvis before. He would like to hold off on CT imaging if possible. Signs and symptoms at this time appear clinically consistent with kidney stone. We will treat with morphine, Tylenol, Toradol, fluids and Flomax. Will get labs, evaluate for infection, monitor closely and reassess. 4:02 AM Laboratory work-up has returned, no white count bandemia or left shift. Electrolytes stable, renal function is good. Bilirubin slightly elevated at 1.8, however normal transaminases, and no evidence of clinical jaundice. Exam demonstrates a negative Mejia sign. Bedside ultrasound shows no evidence of distended gallbladder, and a negative sonographic Mejia sign. Urinalysis shows no significant abnormalities surprisingly. After NSAIDs patient feels much better. Patient did not receive morphine, and his pain was notably improved without it. I again discussed the patient's scenario, and at this time he would like to continue holding off on CT imaging. I do think this is reasonable. Bedside ultrasound was performed of his kidneys, and although the renal pelvis appears minimally larger on the right kidney than left, both kidneys demonstrate a length of around 10.5 cm. No significant asymmetry at this time. With no signs of severe renal failure, bladder infection, or hydronephrosis, and with the patient's pain resolved, and no clinical evidence of acute cholecystitis, and the patient having had his appendix surgically removed, and with his abdominal exam continuing to show no signs of an acute surgical abdomen whatsoever and no abdominal reproducible tenderness whatsoever, I do feel that the patient is safe for discharge with close follow-up with urology. I did discuss with the patient that this is his symptoms persist or worsen he will likely need imaging/CT imaging for further assessment. Patient understands. Patient will give Flomax for home, recommend continued NSAIDs. Discussed red flags which to return. I have extensively reviewed the treatment plan and discharge instructions with the patient. I have addressed all patient concerns at this time. The patient was made aware of what symptoms to monitor for that would warrant a return to the emergency department. Discussed the plan with the patient, they demonstrate verbal understanding and agreement with our assessment and plan at this time. The documentation in this chart was dictated using cua[employer]ea dictation software. Please excuse any dictation errors. HPI General Date/Time Provider Initiated Documentation: 10/21/21 00:01 . HPI Narrative: This is a pleasant 36-year-old male with a past medical history of cystic fibrosis, appendectomy, multiple kidney stones in the past, who presents today for right flank pain for the last hour and a half. Patient states that it started in the right flank with a gradual transition around the flank more anteriorly. He denies any vomiting or diarrhea. He states that this feels identical to his multiple previous kidney stones. He has not taken any Tylenol, Motrin, or Flomax. He denies any vomiting or diarrhea. He denies any current genital pain. No other complaints at this time. Related Data Home Medications Medication Instructions Recorded Confirmed albuterol sulfate 90 mcg/actuation 2 puff inhalation PRN PRN 11/14/17 06/07/21 breath activated powder inhaler (ProAir RespiClick) aztreonam lysine 75 mg/mL solution 1 inh inhalation TID 11/14/17 10/21/21 for nebulization ([place]) cetirizine 10 mg tablet (Zyrtec) 10 mg PO DAILY 11/14/17 06/07/21 dornase soumya 1 mg/mL solution for 2.5 ml IN BID 11/14/17 06/07/21 inhalation (Pulmozyme) ergocalciferol (vitamin D2) 1,250 1 tab PO DIRECTED 11/14/17 10/21/21 mcg (50,000 unit) capsule (Vitamin D2) knaxre-joiubvpw-sluegnt 5 tab PO AC 11/14/17 06/07/21 36,000-114,000-180,000 unit capsule,delay rel (Creon) multivitamin (Daily Multi-Vitamin 1 tab PO BID 11/14/17 10/21/21 tablet) pantoprazole 40 mg tablet,delayed 1 tab PO DAILY 11/14/17 10/21/21 release polyethylene glycol 3350 17 gram 17 gm PO BID PRN 11/14/17 10/21/21 oral powder packet sodium chloride 0.9 % for 1 ea inhalation BID 11/14/17 10/21/21 nebulization sulfamethoxazole 800 See Rx Instructions .Route .COMPLEX 12/02/18 10/21/21 mg-trimethoprim 160 mg tablet elexacaftor 100 mg-tezacaf tab PO 10/21/21 50mg-ivacaf 75mg(d)/ivacaf 150mg(n) tablets (Trikafta) tamsulosin 0.4 mg capsule (Flomax) 0.4 mg PO DAILY #7 caps 10/21/21 Previous Rx's Medication Instructions Recorded tamsulosin 0.4 mg capsule (Flomax) 0.4 mg PO DAILY #7 caps 10/21/21 Allergies Allergy/AdvReac Type Severity Reaction Status Date / Time tobramycin AdvReac Severe Other (See Unverified 10/21/21 00:36 Comment) General CLAIRE: 4 Review of Systems All systems reviewed & are unremarkable except as noted in HPI and below PFSH All Active Problems (Updated 10/21/21 @ 03:48 by Yahir Painter DO) Renal colic on right side (Acute) Abdominal pain (Acute) Acute right flank pain (Acute) Ureterolithiasis (Acute) S/P appendectomy (Acute) Cystic fibrosis (Chronic) Social History Smoking/Tobacco Use Status: Never Smoking risk assessment performed?: Yes Alcohol Intake: current Alcohol Intake frequency: holidays/special occasions only Alcohol type: beer Drug use: Never Substance use type: does not use Do you feel safe at home: Yes Do you feel safe in your relationship?: Yes Exam Narrative Exam Narrative: 1.Const: Well-nourished, Well-developed, appearing stated age 2.Eyes: PERRL, no conjunctival injection, and symmetrical lids. 3.ENT: Atraumatic external nose and ears. Moist MM. Neck: Symmetric, trachea midline, No thyromegaly. 4.CVS: +S1/S2, No murmurs or gallops. Peripheral pulses 2+ and equal in all extremities. Brisk capillary refill in all extremities. 5.RESP: Unlabored respiratory effort. Clear to auscultation bilaterally. No wheezes rales or rhonchi 6.GI: Soft, Nontender/Nondistended, No hepatosplenomegaly. No guarding or rebound. Mild right CVA tenderness. No pain at McBurney's point. Negative Mejia sign. 7.MSK: Normocephalic/Atraumatic, Extremities w/o deformity or ttp No cyanosis or clubbing, Normal movement of all extremities 8.Skin: Warm, Dry. No rashes or lesions. 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 Sensation grossly intact, no focal neurologic deficits. 10.Psych: (AAO) x3. Appropriate mood and affect
[2021-10-21] MEDS: Normal Saline 1,000 ML 1000 ML IV (00:19)
[2021-10-21] MEDS: Ketorolac 30 MG/ML VIAL IVP (00:20)
[2021-10-21] MEDS: Tamsulosin 0.4 MG CAPCR PO (00:23)
[2021-10-21] MEDS: ACETAMINOPHEN 1,000 MG/100 ML BTL 400 MG IVPB (00:23)
[2021-10-21 00:28] LABS: Abs Immature Grans 0.02 10^3/uL (0.0-0.06); Absolute Basophil Count 0.07 10^3/uL (0.0-0.2); Absolute Eosinophil Count 0.28 10^3/uL (0.0-0.7); Absolute Lymphocyte Count 1.95 10^3/uL (1.2-3.4); Absolute Neutrophil Count 5.24 10^3/uL (1.2-6.7); Basophils % 0.8; Eosinophils % 3.3; HCT 49.8 % (40.0-50.0); HGB 17.4 g/dL (13.5-17.5); Immature Grans % 0.2; Lymphocytes % 23.3; MCH 29.8 pg (27.0-33.0); MCHC 34.9 % (32.0-36.0); MCV 85 fL (80-95); MPV 9.4 fL (8.0-11.0); Monocytes % 9.6; Neutrophils % 62.8; Platelet Count 242 10^3/uL (130-400); RBC 5.83 10^6/uL (4.36-5.78); RDW 13.2 % (11.8-14.1); RDW-SD 41.2 fL; WBC 8.36 10^3/uL (4.4-10.8)
[2021-10-21 01:04] LABS: ALT 34 U/L (16-63); AST 22 U/L (15-37); Albumin 4.2 g/dL (3.4-5.0); Alkaline Phosphatase 118 U/L (46-116); Anion Gap 12.9 mmol/L (3-11); BUN 14 mg/dL (7-18); Bilirubin, Total 1.8 mg/dL (0.2-1.0); CO2 25.1 mmol/L (21.0-32.0); CREATININE 1.1 mg/dL (0.70-1.30); Calcium 8.9 mg/dL (8.5-10.1); Chloride 102 mmol/L (98-107); Glucose 123 mg/dL (74-106); Potassium 3.5 mmol/L (3.5-5.1); Sodium 140 mmol/L (136-145); Total Protein 7.6 g/dL (6.4-8.2)
[2021-10-21 02:00] VITALS: BP 102/81; PULSE 50; RESP 16; O2SAT 100
[2021-10-21 02:56] VITALS: BP 121/57; PULSE 55; RESP 16; O2SAT 96
--- NOTE | 2021-10-21 02:57 | NUR.NOTE ---
Pt resting in bed, states pain has improved. VSS. Urine results pending. Report handoff to Megan CERVANTES.
[2021-10-21 02:58] LABS: Bilirubin Negative (Negative); Blood Negative (Negative); Clarity Clear (Clear); Glucose Negative (Negative); Ketones Negative (Negative); Leukocyte Esterase Negative (Negative); Nitrite Negative (Negative); Urobilinogen 0.2 EU/dL (Up TO 0.2); pH 6.5 (5-8)
[2021-10-21 04:00] VITALS: BP 131/85; PULSE 58; RESP 14; TEMP 36.3; O2SAT 97
== END 2021-10-21 04:26 | disposition home or self-care (01) ==
PROVIDERS: Emergency Provider Student in an Organized Health Care Education/Training Program; PCP Family Medicine
DX: R10.9 Unspecified abdominal pain (principal); E80.7 Disorder of bilirubin metabolism, unspecified; Z87.442 Personal history of urinary calculi; Z90.49 Acquired absence of other specified parts of digestive tract
CPT/HCPCS: 80053; 96361; 96374; 96375; 99284; 81003; 85025; J0131; J1885

== ENCOUNTER 2022-02-26 17:21 | Emergency (ER) | payer BC, SELFPAY ==
[2022-02-26 17:36] VITALS: BP 157/103; PULSE 64; RESP 22; TEMP 37; O2SAT 97
--- NOTE | 2022-02-26 17:45 | DI.CT_ITS ---
Exam(s) CT RENAL COLIC WO EXAM: CT RENAL COLIC WO CLINICAL HISTORY: rt flank pain, previous renal stones. TECHNIQUE: Imaging Protocol: Axial computed tomography images with coronal and sagittal reformatted images were created and reviewed. CONTRAST MATERIAL: Noncontrast COMPARISON: US US ABDOMEN LIMITED from 12/23/[address] RENAL COLIC WO from 12/23/2020 FINDINGS: ABDOMEN: Lung Bases: Normal where visualized. Mild calcification in the pericardium. Liver: Normal attenuation. Normal size. Lobulated contour, unchanged from prior.. No measurable ma ss. Gallbladder and biliary tract: Gallbladder contracted, similar appearance to prior. No radiodense ca lculus or dilation. Pancreas: Completely fatty replaced. No significant change in size or appearance of previously noted mass versus adenopathy at the region of the pancreatic head versus uncinate process. This could rep resent residual pancreatic tissue. Spleen: Normal. Kidneys: Normal size, contour and axis. Scattered tiny bilateral calculi. No obstructive uropathy. N o masses seen. Adrenal glands: No masses seen. Abdominal Aorta: Abdominal portion non-dilated. PELVIS: Bladder: Symmetric distention, no gross wall thickening. No evidence of stones.No visible mass. Bowel: No obstruction or bowel wall thickening. Status post appendectomy. Reproductive: Peritoneal cavity: No ascites, collection or mesenteric inflammatory response. Bones: Unremarkable for age.. IMPRESSION: Apparent severe fatty replacement of the pancreas. Question of residual pancreatic tissue in the unc inate process versus mass or adenopathy. Appearance is unchanged from prior.. Bilateral renal calculi. No ureteral or bladder calculi. Unexpected findings RADIATION DOSE DELIVERED: 647.59mGy.cm Total DLP DATA REPOSITORY: All CT scans at this facility are submitted to the National Radiology Data Registry (NRDR) Dose Index Registry (DIR) with the [employer] (ACR). RADIATION OPTIMIZATION: All CT scans at this facility use at least one of these dose optimization te chniques: automated exposure control; mA and/or kV adjustment per patient size (includes targeted exa ms where dose is matched to clinical indication); or iterative reconstruction.
[2022-02-26 18:01] LABS: Abs Immature Grans 0.02 10^3/uL (0.0-0.06); Absolute Basophil Count 0.04 10^3/uL (0.0-0.2); Absolute Eosinophil Count 0.34 10^3/uL (0.0-0.7); Absolute Lymphocyte Count 1.56 10^3/uL (1.2-3.4); Absolute Monocyte Count 0.71 10^3/uL (0.1-0.8); Absolute Neutrophil Count 5.11 10^3/uL (1.2-6.7); Basophils % 0.5; Eosinophils % 4.4; HCT 40.9 % (40.0-50.0); HGB 14.1 g/dL (13.5-17.5); Immature Grans % 0.3; Lymphocytes % 20.1; MCH 29.1 pg (27.0-33.0); MCHC 34.5 % (32.0-36.0); MCV 85 fL (80-95); MPV 9.3 fL (8.0-11.0); Monocytes % 9.1; Neutrophils % 65.6; Platelet Count 221 10^3/uL (130-400); RBC 4.84 10^6/uL (4.36-5.78); RDW 13.6 % (11.8-14.1); RDW-SD 42.4 fL; WBC 7.78 10^3/uL (4.4-10.8)
[2022-02-26] MEDS: Ketorolac 30 MG/ML VIAL IVP (18:08)
[2022-02-26] MEDS: Ondansetron 4 MG/2 ML VIAL IVP (18:09)
[2022-02-26] MEDS: Normal Saline 500 ML IV (18:12)
[2022-02-26 18:18] LABS: ALT 101 U/L (16-63); AST 56 U/L (15-37); Alkaline Phosphatase 105 U/L (46-116); Anion Gap 8.4 mmol/L (3-11); BUN 16 mg/dL (7-18); Bilirubin, Total 1.1 mg/dL (0.2-1.0); CO2 27.6 mmol/L (21.0-32.0); CREATININE 1.1 mg/dL (0.70-1.30); Calcium 8.6 mg/dL (8.5-10.1); Chloride 103 mmol/L (98-107); Estimated GFR 89.78 (mL/min/1.73m2); Glucose 107 mg/dL (74-106); Potassium 3.9 mmol/L (3.5-5.1); Sodium 139 mmol/L (136-145); Total Protein 7.5 g/dL (6.4-8.2)
--- NOTE | 2022-02-26 18:35 | DI.VRAD_ITS ---
PROCEDURE INFORMATION: Exam: CT Abdomen And Pelvis Without Contrast Exam date and time: 02/26/2022 18:23 Age: 36 years old Clinical indication: Abdominal pain; Prior surgery; Surgery date: 6+ months; Surgery type: Kidney stone removal; Patient HX: HX of kidney stones, right sided flank pain. TECHNIQUE: Imaging protocol: Computed tomography of the abdomen and pelvis without contrast. Radiation optimization: All CT scans at this facility use at least one of these dose optimization techniques: automated exposure control; mA and/or kV adjustment per patient size (includes targeted exams where dose is matched to clinical indication); or iterative reconstruction. COMPARISON: CT ABD PELVIS WITH CONTRAST 11/14/2017 17:30 FINDINGS: Lungs: Miniscule centrilobular pattern nodules in the right lower lobe, associated with minor bronchiectasis, statistically most likely chronic and benign. Liver: Nodular liver contour. No hepatic masses on noncontrast imaging. Gallbladder and bile ducts: No definite gallbladder is seen. Unclear if there is a very contracted gallbladder present. Pancreas: No ductal dilation. No masses. Spleen: No splenomegaly or focal lesions. Adrenal glands: No mass. Kidneys and ureters: Subcentimeter nonobstructive bilateral nephrolithiasis. Stomach and bowel: Submucosal fat deposition in the colon, likely habitus and or diet related. Fluid-filled loops of mid small bowel, without definite pathologic dilation, no significant wall thickening or definite transition point on noncontrast imaging. Appendix: Appendectomy. Intraperitoneal space: No free air. No significant fluid collection. Vasculature: No abdominal aortic aneurysm. Lymph nodes: Heterogeneous moderately enlarged portacaval and lashae hepatis lymph nodes with mild surrounding edema. Urinary bladder: Unremarkable as visualized. Reproductive: Unremarkable as visualized. Bones/joints: No acute fracture. Soft tissues: No suspicious lesions. IMPRESSION: 1. Cirrhosis. 2. Portacaval lymph node or lymph nodes worrisome for metastatic disease or malignancy with follow-up warranted. 3. Subcentimeter nonobstructive bilateral nephrolithiasis. 4. Additional findings as described. Dictated and Authenticated by: Shwetha Flores MD. Ordering:EDEL Araya MD
[2022-02-26 19:01] LABS: Bilirubin Negative (Negative); Blood Negative (Negative); Clarity Clear (Clear); Glucose Negative (Negative); Ketones Negative (Negative); Leukocyte Esterase Negative (Negative); Nitrite Negative (Negative); Specific Gravity 1.025 (1.005-1.025); Urobilinogen 0.2 EU/dL (Up TO 0.2)
--- NOTE | 2022-02-26 19:34 | ED.GENADUL_ITS ---
Discharge Plan Disposition Patient Disposition: Home Condition: Stable Discharge Details Clinical Impression: Acute right flank pain, Enlarged lymph nodes, Cirrhosis of liver Primary Care Provider: Iesha Vargas ED Provider: Marshal Mccurdy Home Meds and New Rx's Prescriptions: Continued multivitamin [Daily Multi-Vitamin] 1 EACH tablet 1 tab PO BID polyethylene glycol 3350 17 GM powder in packet 17 gm PO BID PRN cetirizine [Zyrtec] 10 MG tablet 10 mg PO DAILY Pulmozyme 1 MG/ML solution 2.5 ml IN BID pantoprazole 40 MG tablet,delayed release (DR/EC) 1 tab PO DAILY ergocalciferol (vitamin D2) [Vitamin D2] 50,000 UNIT capsule 1 tab PO DIRECTED Label Comments: pt. states he no longer takes sodium chloride 3 ML solution for nebulization 1 ea Inhalation BID [place] 75 MG/ML solution for nebulization 1 inh Inhalation TID Creon 1 EACH capsule,delayed release(DR/EC) 5 tab PO AC ProAir RespiClick 90 MCG aerosol powdr breath activated 2 puff Inhalation PRN PRN sulfamethoxazole-trimethoprim 800-160 mg Tablet See Rx Instructions .ROUTE .COMPLEX Rx Instructions: take on opposite months as [place] Trikafta 100-50-75 mg(d) /150 mg (n) tablets, sequential 1 tab PO tamsulosin [Flomax] 0.4 mg capsule 0.4 mg PO DAILY Qty: 7 0RF Discharge Instructions Additional Instructions: Please take ibuprofen over the counter. Take 600mg by mouth every 6 hours as needed for pain. CT of your abdomen pelvis revealed: Cirrhosis.Portacaval lymph node or lymph nodes worrisome for metastatic disease or malignancy with follow-up warranted. Please be sure to follow-up with your primary care physician and gastroenterology regarding these findings. Call tomorrow. And acute hepatitis profile is pending at time of discharge. Be sure to follow- up with your primary care physician regarding this. Turn to the return to the [facility] department immediately for any worsening or new concerning symptoms. Referrals: Iesha Vargas [Primary Care Provider] - Medical Decision Making 36-year-old male with history of cystic fibrosis, renal stones requiring extraction, here with right flank pain that is consistent with prior ureteral colic. Considered acute surgical process including impacted stone. Plan to treat pain with Toradol IV. IV fluid bolus initiated. CT of the abdomen pelvis was interpreted by radiology: IMPRESSION: 1. Cirrhosis. 2. Portacaval lymph node or lymph nodes worrisome for metastatic disease or malignancy with follow-up warranted. 3. Subcentimeter nonobstructive bilateral nephrolithiasis. 4. Additional findings as described. Labs were reviewed. Mild transaminitis noted. Urinalysis negative. Patient reassessed and feeling much better. Consider recent passage of stone given not present on CT. All results were discussed with the patient. I recommended the patient follow- up with his primary care physician and also gastroenterology for additional outpatient diagnostics. He understands importance of timely follow-up. Lab Data Lab results reviewed: Yes I reviewed the patient's lab results. Labs: Laboratory Tests Range/Units 02/26/22 02/26/22 02/26/22 17:55 17:55 18:52 WBC (4.4-10.8) 10^3/uL 7.78 RBC (4.36-5.78) 10^6/uL 4.84 Hgb (13.5-17.5) g/dL 14.1 Hct (40.0-50.0) % 40.9 MCV (80-95) fL 85 MCH (27.0-33.0) pg 29.1 MCHC (32.0-36.0) % 34.5 RDW (11.8-14.1) % 13.6 Plt Count (130-400) 10^3/uL 221 MPV (8.0-11.0) fL 9.3 Immature Gran % 0.3 Neutrophils % 65.6 Lymphocytes % 20.1 Monocytes % 9.1 Eosinophils % 4.4 Basophils % 0.5 Nucleated RBC % (0.0-0.3) % 0.0 Absolute Neutrophils (1.2-6.7) 10^3/uL 5.11 Absolute Lymphocytes (1.2-3.4) 10^3/uL 1.56 Absolute Monocytes (0.1-0.8) 10^3/uL 0.71 Absolute Eosinophils (0.0-0.7) 10^3/uL 0.34 Absolute Basophils (0.0-0.2) 10^3/uL 0.04 Sodium (136-145) mmol/L 139 Potassium (3.5-5.1) mmol/L 3.9 Chloride (98-107) mmol/L 103 Carbon Dioxide (21.0-32.0) mmol/L 27.6 Anion Gap (3-11) mmol/L 8.4 BUN (7-18) mg/dL 16 Creatinine (0.70-1.30) mg/dL 1.1 Est GFR (CKD-EPI 2020) (mL/min/1.73m2) 89.78 Glucose (74-106) mg/dL 107 H Calcium (8.5-10.1) mg/dL 8.6 Total Bilirubin (0.2-1.0) mg/dL 1.1 H AST (15-37) U/L 56 H ALT (16-63) U/L 101 H Alkaline Phosphatase (46-116) U/L 105 Total Protein (6.4-8.2) g/dL 7.5 Albumin (3.4-5.0) g/dL 4.0 Urine Color (Yellow) Yellow Urine Clarity (Clear) Clear Urine pH (5-8) 7.0 Ur Specific Leopold (1.005-1.025) 1.025 Urine Protein (Negative) mg/dL Negative Urine Ketones (Negative) mg/dL Negative Urine Blood (Negative) Negative Urine Nitrite (Negative) Negative Urine Bilirubin (Negative) Negative Urine Urobilinogen (Up TO 0.2) EU/dL 0.2 Ur Leukocyte Esterase (Negative) Negative Urine Glucose (Negative) mg/dL Negative Sign Out No HPI General Date/Time Provider Initiated Documentation: 02/26/22 17:51 . Limitations to Documentation: no limitations . Information obtained by: patient . HPI Narrative: 36-year-old male with history of cystic fibrosis, ureteral stones in the past, here with chief complaint of right flank pain. Pain feels similar to prior ureteral colic. Pain is severe over the past few hours. No modifiers. He denies associated hematuria or dysuria. No significant abdominal pain. He does have some nausea. No fever. Related Data Home Medications Medication Instructions Recorded Confirmed albuterol sulfate 90 mcg/actuation 2 puff inhalation PRN PRN 11/14/17 02/26/22 breath activated powder inhaler (ProAir RespiClick) aztreonam lysine 75 mg/mL solution 1 inh inhalation TID 11/14/17 02/26/22 for nebulization ([place]) cetirizine 10 mg tablet (Zyrtec) 10 mg PO DAILY 11/14/17 02/26/22 dornase soumya 1 mg/mL solution for 2.5 ml IN BID 11/14/17 02/26/22 inhalation (Pulmozyme) ergocalciferol (vitamin D2) 1,250 1 tab PO DIRECTED 11/14/17 02/26/22 mcg (50,000 unit) capsule (Vitamin D2) [id number] 5 tab PO AC 11/14/17 02/26/22 36,000-114,000-180,000 unit capsule,delay rel (Creon) multivitamin (Daily Multi-Vitamin 1 tab PO BID 11/14/17 02/26/22 tablet) pantoprazole 40 mg tablet,delayed 1 tab PO DAILY 11/14/17 02/26/22 release polyethylene glycol 3350 17 gram 17 gm PO BID PRN 11/14/17 02/26/22 oral powder packet sodium chloride 0.9 % for 1 ea inhalation BID 11/14/17 02/26/22 nebulization sulfamethoxazole 800 See Rx Instructions .Route .COMPLEX 12/02/18 02/26/22 mg-trimethoprim 160 mg tablet elexacaftor 100 mg-tezacaf 1 tab PO 10/21/21 50mg-ivacaf 75mg(d)/ivacaf 150mg(n) tablets (Trikafta) tamsulosin 0.4 mg capsule (Flomax) 0.4 mg PO DAILY #7 caps 10/21/21 02/26/22 Previous Rx's Medication Instructions Recorded tamsulosin 0.4 mg capsule (Flomax) 0.4 mg PO DAILY #7 caps 10/21/21 Allergies Allergy/AdvReac Type Severity Reaction Status Date / Time tobramycin AdvReac Severe tinitus Unverified 10/21/21 07:37 General Stated Complaint: FlankPain CLAIRE: 3 Review of Systems All systems reviewed & are unremarkable except as noted in HPI and below Constitutional Constitutional: Denies fever(s) Gastrointestinal Gastrointestinal: Reports nausea Genitourinary Genitourinary: Reports as per HPI PFSH All Active Problems Renal colic on right side (Acute) Abdominal pain (Acute) Enlarged lymph nodes (Acute) Cirrhosis of liver (Acute) Acute right flank pain (Acute) Ureterolithiasis (Acute) S/P appendectomy (Acute) Cystic fibrosis (Chronic) Social History Smoking/Tobacco Use Status: Never Smoking risk assessment performed?: Yes Alcohol Intake: current Alcohol Intake frequency: holidays/special occasions only Alcohol type: beer Drug use: Never Substance use type: does not use Do you feel safe at home: Yes Do you feel safe in your relationship?: Yes Exam Const General: cooperative and no acute distress HENMT Head: normocephalic and atraumatic Mouth: moist mucous membranes Eyes Conjunctivae: normal conjunctivae Sclera: normal sclerae Neck Neck: trachea midline and supple Resp Auscultation: clear to auscultation bilaterally, no rales, no rhonchi and no wheezes Cardio Rate: regular rate and not tachycardic Rhythm: regular rhythm GI Palpation: soft, not firm, no guarding, no masses, not rigid and nontender Skin Other: Some plaque and erythema right upper eyelid -patient notes chronic being worked up by dermatology Neuro General: patient alert, patient awake and tone normal Extrem General: no edema Psych Appearance: grossly normal Mental Status: mental status grossly normal Course Vital Signs Vital signs: Vital Signs Temperature 37.0 C 02/26/22 17:36 Pulse 64 02/26/22 17:36 Respiratory Rate 22 02/26/22 17:36 Blood Pressure 157/103 H 02/26/22 17:36 Pulse Oximetry 97 02/26/22 17:36 Temperature 37.0 C 02/26/22 17:36 Temperature Source Oral 02/26/22 17:36 Pulse 64 02/26/22 17:36 Respiratory Rate 22 02/26/22 17:36 Respiratory Effort 02/26/22 18:21 Blood Pressure 157/103 H 02/26/22 17:36 Blood Pressure Position Sitting 02/26/22 17:36 Pulse Oximetry 97 02/26/22 17:36 Oxygen Delivery Method Room Air 02/26/22 17:36 Oxygen Flow Rate 0 02/26/22 17:36 Pain Level 9 02/26/22 18:08 Lab/Test Results Lab/Test Results: Laboratory Tests Range/Units 02/26/22 02/26/22 02/26/22 17:55 17:55 18:52 WBC (4.4-10.8) 10^3/uL 7.78 RBC (4.36-5.78) 10^6/uL 4.84 Hgb (13.5-17.5) g/dL 14.1 Hct (40.0-50.0) % 40.9 MCV (80-95) fL 85 MCH (27.0-33.0) pg 29.1 MCHC (32.0-36.0) % 34.5 RDW (11.8-14.1) % 13.6 Plt Count (130-400) 10^3/uL 221 MPV (8.0-11.0) fL 9.3 Immature Gran % 0.3 Neutrophils % 65.6 Lymphocytes % 20.1 Monocytes % 9.1 Eosinophils % 4.4 Basophils % 0.5 Nucleated RBC % (0.0-0.3) % 0.0 Absolute Neutrophils (1.2-6.7) 10^3/uL 5.11 Absolute Lymphocytes (1.2-3.4) 10^3/uL 1.56 Absolute Monocytes (0.1-0.8) 10^3/uL 0.71 Absolute Eosinophils (0.0-0.7) 10^3/uL 0.34 Absolute Basophils (0.0-0.2) 10^3/uL 0.04 Sodium (136-145) mmol/L 139 Potassium (3.5-5.1) mmol/L 3.9 Chloride (98-107) mmol/L 103 Carbon Dioxide (21.0-32.0) mmol/L 27.6 Anion Gap (3-11) mmol/L 8.4 BUN (7-18) mg/dL 16 Creatinine (0.70-1.30) mg/dL 1.1 Est GFR (CKD-EPI 2020) (mL/min/1.73m2) 89.78 Glucose (74-106) mg/dL 107 H Calcium (8.5-10.1) mg/dL 8.6 Total Bilirubin (0.2-1.0) mg/dL 1.1 H AST (15-37) U/L 56 H ALT (16-63) U/L 101 H Alkaline Phosphatase (46-116) U/L 105 Total Protein (6.4-8.2) g/dL 7.5 Albumin (3.4-5.0) g/dL 4.0 Urine Color (Yellow) Yellow Urine Clarity (Clear) Clear Urine pH (5-8) 7.0 Ur Specific [place] (1.005-1.025) 1.025 Urine Protein (Negative) mg/dL Negative Urine Ketones (Negative) mg/dL Negative Urine Blood (Negative) Negative Urine Nitrite (Negative) Negative Urine Bilirubin (Negative) Negative Urine Urobilinogen (Up TO 0.2) EU/dL 0.2 Ur Leukocyte Esterase (Negative) Negative Urine Glucose (Negative) mg/dL Negative
[2022-02-26 20:05] VITALS: BP 104/76; PULSE 74; RESP 18; TEMP 36.6; O2SAT 99
[2022-02-26] MEDS: Ibuprofen 600 MG TAB PO (20:20)
--- NOTE | 2022-02-26 21:16 | NUR.NOTE ---
Referral faxed to [facility] (Dr Vargas) to follow up sooner rather than later. Copy to Care Management as well. Follow up for Large lymph nodes on abdominal CT Scan concerning for malignancy.Nursing Note:
[2022-02-27 21:24] LABS: Hepatitis A Antibody IgM Negative (Negative); Hepatitis B Core Antibody Negative (Negative); Hepatitis B surface Ag Negative (Negative); Hepatitis C Ab w Rflx HCV PCR Negative (Negative)
== END 2022-02-26 20:20 | disposition home or self-care (01) ==
PROVIDERS: Emergency Provider Student in an Organized Health Care Education/Training Program; PCP Family Medicine
DX: R10.9 Unspecified abdominal pain (principal); R59.0 Localized enlarged lymph nodes; K74.69 Other cirrhosis of liver; N20.0 Calculus of kidney; E84.9 Cystic fibrosis, unspecified
CPT/HCPCS: 80053; 86704; 86709; 86803; 87340; 96361; 96374; 96375; 99284; 74176; 81003; 85025; J1885; J2405

== ENCOUNTER 2022-03-07 14:34 | Inpatient (IN) | payer BC, SELFPAY ==
[2022-03-07 14:39] VITALS: BP 126/85; PULSE 82; RESP 18; TEMP 36.9; O2SAT 97
[2022-03-07 15:07] LABS: Abs Immature Grans 0.03 10^3/uL (0.0-0.06); Absolute Eosinophil Count 0.15 10^3/uL (0.0-0.7); Absolute Lymphocyte Count 1.26 10^3/uL (1.2-3.4); Absolute Monocyte Count 1.14 10^3/uL (0.1-0.8); Basophils % 0.2; Eosinophils % 1.2; HCT 43.1 % (40.0-50.0); Immature Grans % 0.2; Lymphocytes % 10.4; MCH 29.2 pg (27.0-33.0); MCHC 34.8 % (32.0-36.0); MCV 84 fL (80-95); MPV 9.4 fL (8.0-11.0); Monocytes % 9.4; Neutrophils % 78.6; Platelet Count 214 10^3/uL (130-400); RBC 5.13 10^6/uL (4.36-5.78); RDW 13.8 % (11.8-14.1); RDW-SD 42.5 fL
[2022-03-07] MEDS: Ondansetron 4 MG/2 ML VIAL IVP ×2 (15:08→18:27)
[2022-03-07] MEDS: Dicyclomine 20 MG TAB PO (15:08)
[2022-03-07] MEDS: Normal Saline 1,000 ML 1000 ML IV ×2 (15:09→18:27)
[2022-03-07 15:13] LABS: Absolute Basophil Count 0.02 10^3/uL (0.0-0.2); Absolute Neutrophil Count 9.51 10^3/uL (1.2-6.7)
[2022-03-07 15:27] LABS: Lipase < 10 U/L (73-393); Magnesium 1.8 mg/dL (1.8-2.4)
[2022-03-07 15:30] LABS: ALT 61 U/L (16-63); AST 22 U/L (15-37); Albumin 4.1 g/dL (3.4-5.0); Alkaline Phosphatase 105 U/L (46-116); Anion Gap 5.7 mmol/L (3-11); BUN 10 mg/dL (7-18); Bilirubin, Total 1.5 mg/dL (0.2-1.0); CO2 29.3 mmol/L (21.0-32.0); Chloride 100 mmol/L (98-107); Estimated GFR 100.66 (mL/min/1.73m2); Glucose 104 mg/dL (74-106); Potassium 3.9 mmol/L (3.5-5.1); Sodium 135 mmol/L (136-145); Total Protein 7.5 g/dL (6.4-8.2)
--- NOTE | 2022-03-07 15:45 | DI.CT_ITS ---
Exam(s) CT ABDOMEN PELVIS W EXAM: CT ABDOMEN PELVIS W CLINICAL HISTORY: vomiting, LL abdominal pain, r/o obstruction. TECHNIQUE: Imaging Protocol: Axial computed tomography images with coronal and sagittal reformatted images were created and reviewed CONTRAST MATERIAL: Intravenous: Omnipaque 100cc Oral: None COMPARISON: CT CT RENAL COLIC WO from 02/26/2022 FINDINGS: VISUALIZED LUNG BASES: No nodules nor pleural effusions evident. ABDOMEN: LIVER: There is a small amount of perihepatic ascites. No focal hepatic lesions. Liver appears mild ly cirrhotic. No ominous hepatic lesions evident. No significantly dilated intrahepatic ducts. GALLBLADDER/BILIARY: No obvious gallbladder pathology. CBD is not dilated. PANCREAS: The pancreas neck, body, and tail are again not evident. A small amount of pancreatic tiss ue at the level the uncinate process is again noted. SPLEEN: Mild splenomegaly again noted. No intrasplenic lesions. Splenic and portal veins are patent . Splenic vein size is prominent, exhibiting diameter of 1.2 cm. This is commensurate with the appe arance of the liver. There are no obvious varices evident. ADRENALS: There are no significant adrenal masses. KIDNEYS:No cysts evident. No solid renal masses. However, there are punctate calculi in both kidneys noted, nonobstructive. Ureters are not dilated. No calculi seen in the urinary bladder.. ABDOMINAL AORTA: Abdominal aorta is not enlarged. LYMPH NODES:There is no retroperitoneal nor paraaortic adenopathy. ABDOMINAL WALL: No evidence of significant anterior abdominal wall nor inguinal hernia. GI: There is now a new high-grade small-bowel obstruction evident with transition point in the right lower quadrant. There is surrounding free fluid. The colon distal to the splenic flexure is collaps ed. Affected small bowel loops are edematous and fecalized and exhibit increased luminal diameter of approximately 3.5 cm. PELVIS: GI: No evidence of appendicitis.No evidence of sigmoid diverticulitis. LYMPH NODES: There is no intrapelvic nor inguinal adenopathy. REPRODUCTIVE: Prostate not enlarged URINARY BLADDER: No calculi nor obvious masses evident OSSEOUS: No significant osseous lesions. No fractures. Sacroiliac joints unremarkable. IMPRESSION: 1. Compared to the recent CT scan of 02/26/2022 there is now interval development of a high-grade dis kirsty small bowel obstruction as described above. There is surrounding free fluid. Surgical consultat ion recommended. I note that the dilated affected small bowel loops are fecalized. The distal half of the colon is collapsed. 2. The pancreas is again not seen with the exception of the uncinate process. Correlation with any h istory of cystic fibrosis/mucoviscidosis recommended. 3. Bilateral nonobstructive nephrolithiasis. 4. Hepatic cirrhosis. Splenomegaly. Study 1st read by [facility] RADIATION DOSE DELIVERED: 651.34mGy.cm Total DLP DATA REPOSITORY: All CT scans at this facility are submitted to the National Radiology Data Registry (NRDR) Dose Index Registry (DIR) with the [employer] (ACR). RADIATION OPTIMIZATION: All CT scans at this facility use at least one of these dose optimization te chniques: automated exposure control; mA and/or kV adjustment per patient size (includes targeted exa ms where dose is matched to clinical indication); or iterative reconstruction.
[2022-03-07 16:36] LABS: Bilirubin Negative (Negative); Blood Negative (Negative); Clarity Clear (Clear); Glucose Negative (Negative); Ketones Negative (Negative); Leukocyte Esterase Negative (Negative); Nitrite Negative (Negative); Urobilinogen 0.2 EU/dL (Up TO 0.2)
[2022-03-07] MEDS: Mylanta Suspension 30 ML CUP (16:37)
--- NOTE | 2022-03-07 18:06 | DI.VRAD_ITS ---
Addendum created by Vijay Waite MD on 03/07/2022 6:08:30 PM EST: THIS REPORT CONTAINS FINDINGS THAT MAY BE CRITICAL TO PATIENT CARE. The findings were verbally communicated via telephone conference with JORDYN KENNEY at 6:07 PM EST on 03/07/2022. The findings were acknowledged and understood. Initial report created on 03/07/2022 6:05:37 PM EST: PROCEDURE INFORMATION: Exam: CT Abdomen And Pelvis With Contrast Exam date and time: 03/07/2022 5:38 PM Age: 36 years old Clinical indication: Vomiting; Abdominal pain; Localized; Left lower quadrant (llq); Additional info: Vomiting, ll abdominal pain, R/O obstruction TECHNIQUE: Imaging protocol: Computed tomography of the abdomen and pelvis with contrast. COMPARISON: CT RENAL COLIC WO 02/26/2022 6:23 PM FINDINGS: Liver: Fatty infiltration. No mass. Mildly nodular contour Gallbladder and bile ducts: Contracted with faint gallstones suspected. Question minimal surrounding infiltration No ductal dilation. Pancreas: Normal. No ductal dilation. Spleen: Normal. No splenomegaly. Adrenal glands: Normal. No mass. Kidneys and ureters: Faint left renal calculus suspected No hydronephrosis. Stomach and bowel: Abnormally dilated and thickened small bowel loops with fecalization noted distally. There is decompression and thickening of the terminal ileum Appendix: Surgically absent Intraperitoneal space: Small pelvic fluid. No free air. No significant fluid collection. Vasculature: Unremarkable. No abdominal aortic aneurysm. Lymph nodes: Unremarkable. No enlarged lymph nodes. Urinary bladder: Unremarkable as visualized. Reproductive: Unremarkable as visualized. Bones/joints: Unremarkable. No acute fracture. Soft tissues: Unremarkable. IMPRESSION: Developing high-grade distal small bowel obstruction transitioning at the level of the terminal ileum as described. Small pelvic fluid. No free air Faint gallstones within a contracted gallbladder. Question faint surrounding infiltration. Correlation with right upper quadrant ultrasound as clinically indicated Suspected cirrhosis Faint nonobstructing left renal calculus suspected Dictated and Authenticated by: Vijay Waite MD. Ordering:YENIFER Sinclair MD
--- NOTE | 2022-03-07 18:17 | ED.GENADUL_ITS ---
Discharge Plan Disposition Patient Disposition: Admit to [facility] Condition: Good Condition: Good Discharge Details Chief Complaint: Abd Prob Clinical Impression: Small bowel obstruction, Vomiting Admit Date/Time: 03/07/22 18:18 Admit Provider: Silke Hermosillo Attending Provider: Silke Hermosillo Primary Care Provider: Iesha Vargas ED Provider: Yahir Painter Discharge Instructions Activity:: Activity as Tolerated Equipment/Supplies:: No Equipment Needed Diet:: As Tolerated Discharge Orders Discharge Orders: Discharge Order (Routine); Ordered 03/08/22 Ordered By: Va Larios Discharge Data Discharge Date/Time-TO BE ENTERED AT DEPARTURE: 03/07/22 19:35 Medical Decision Making This is a pleasant 36-year-old male with a past medical history of cystic fibrosis, appendectomy, multiple kidney stones in the past who presents today for evaluation of abdominal pain. Patient states that the symptoms have been present for the last 24 hours. He has had nausea and vomiting, and on and off abdominal pain and cramping since then. He denies any hematemesis. He denies any diarrhea. He denies any other complaints. He states that this feels similar to his previous stomach pain episodes but slightly different. No other complaints at this time. Exam demonstrates mild achiness throughout. No guarding or rebound. Differential is highest for gastroenteritis which there has been a significant amount of as of late. We will give antiemetics, Bentyl, and rehydrate. Patient would like to hold off on imaging for the time being. We will get laboratory work-up and reassess. Patient has been reassessed and continues to demonstrate abdominal pain and vomiting despite medications. Decision was made to get a CT scan, CT scan shows evidence of high-grade distal small bowel obstruction transitioning at the level of the terminal ileum. There is some faint gallstones with a contracted gallbladder. However physical exam does not demonstrate symptoms consistent with cholecystitis. He has no right upper quadrant tenderness on repeat exam and initial exam. With a small bowel obstruction the patient has requested to hold off on NG tube. I did contact the surgeon Dr. Hermosillo, I will place admission orders on her behalf. She agrees with the plan. Plan of care inpatient I will place orders for continued antiemetics and pain meds. FINDINGS: Liver: Fatty infiltration. No mass. Mildly nodular contour Gallbladder and bile ducts: Contracted with faint gallstones suspected. Question minimal surrounding infiltration No ductal dilation. Pancreas: Normal. No ductal dilation. Spleen: Normal. No splenomegaly. Adrenal glands: Normal. No mass. Kidneys and ureters: Faint left renal calculus suspected No hydronephrosis. Stomach and bowel: Abnormally dilated and thickened small bowel loops with fecalization noted distally. There is decompression and thickening of the terminal ileum Appendix: Surgically absent Intraperitoneal space: Small pelvic fluid. No free air. No significant fluid collection. Vasculature: Unremarkable. No abdominal aortic aneurysm. Lymph nodes: Unremarkable. No enlarged lymph nodes. Urinary bladder: Unremarkable as visualized. Reproductive: Unremarkable as visualized. Bones/joints: Unremarkable. No acute fracture. Soft tissues: Unremarkable. IMPRESSION: Developing high-grade distal small bowel obstruction transitioning at the level of the terminal ileum as described. Small pelvic fluid. No free air Faint gallstones within a contracted gallbladder. Question faint surrounding infiltration. Correlation with right upper quadrant ultrasound as clinically indicated Suspected cirrhosis Faint nonobstructing left renal calculus suspected Thank you for allowing us to participate in the care of your patient. Dictated and Authenticated by: Vijay Waite MD 03/07/2022 6:05 PM Eastern Time ([place] & [place]) Sign Out No HPI General Date/Time Provider Initiated Documentation: 03/07/22 14:35 . HPI Narrative: This is a pleasant 36-year-old male with a past medical history of cystic fibrosis, appendectomy, multiple kidney stones in the past who presents today for evaluation of abdominal pain. Patient states that the symptoms have been present for the last 24 hours. He has had nausea and vomiting, and on and off abdominal pain and cramping since then. He denies any hematemesis. He denies any diarrhea. He denies any other complaints. He states that this feels similar to his previous stomach pain episodes but slightly different. No other complaints at this time. Related Data Home Medications Medication Instructions Recorded Confirmed albuterol sulfate 90 mcg/actuation 2 puff inhalation PRN PRN 11/14/17 03/07/22 breath activated powder inhaler (ProAir RespiClick) aztreonam lysine 75 mg/mL solution 1 inh inhalation TID 11/14/17 03/07/22 for nebulization (Steven) cetirizine 10 mg tablet (Zyrtec) 10 mg PO DAILY 11/14/17 03/07/22 dornase soumya 1 mg/mL solution for 2.5 ml IN BID 11/14/17 03/07/22 inhalation (Pulmozyme) ergocalciferol (vitamin D2) 1,250 1 tab PO DIRECTED 11/14/17 03/07/22 mcg (50,000 unit) capsule (Vitamin D2) [id number] 5 tab PO AC 11/14/17 03/07/22 36,000-114,000-180,000 unit capsule,delay rel (Creon) multivitamin (Daily Multi-Vitamin 1 tab PO BID 11/14/17 03/07/22 tablet) pantoprazole 40 mg tablet,delayed 1 tab PO DAILY 11/14/17 03/07/22 release polyethylene glycol 3350 17 gram 17 gm PO BID PRN 11/14/17 03/07/22 oral powder packet sodium chloride 0.9 % for 1 ea inhalation BID 11/14/17 03/07/22 nebulization sulfamethoxazole 800 See Rx Instructions .Route .COMPLEX 12/02/18 03/07/22 mg-trimethoprim 160 mg tablet elexacaftor 100 mg-tezacaf 1 tab PO 10/21/21 50mg-ivacaf 75mg(d)/ivacaf 150mg(n) tablets (Trikafta) tamsulosin 0.4 mg capsule (Flomax) 0.4 mg PO DAILY #7 caps 10/21/21 03/07/22 Previous Rx's Medication Instructions Recorded tamsulosin 0.4 mg capsule (Flomax) 0.4 mg PO DAILY #7 caps 10/21/21 Allergies Allergy/AdvReac Type Severity Reaction Status Date / Time tobramycin AdvReac Severe tinitus Unverified 03/07/22 17:04 General Stated Complaint: Abd Prob CLAIRE: 3 Review of Systems All systems reviewed & are unremarkable except as noted in HPI and below PFSH All Active Problems (Updated 03/08/22 @ 17:31 by Yahir Painter DO) Small bowel obstruction (Acute) Vomiting (Acute) Small bowel obstruction (Acute) Abdominal pain (Acute) Enlarged lymph nodes (Acute) Cirrhosis of liver (Acute) Cystic fibrosis (Chronic) Medical History Acute appendicitis with generalized peritonitis Acute right flank pain Renal colic on right side Ureterolithiasis Surgical History S/P appendectomy Social History Smoking/Tobacco Use Status: Never Smoking risk assessment performed?: Yes Alcohol Intake: current Alcohol Intake frequency: holidays/special occasions only Alcohol type: beer Drug use: Never Substance use type: does not use Do you feel safe at home: Yes Do you feel safe in your relationship?: Yes Exam Narrative Exam Narrative: 1.Const: Well-nourished, Well-developed, appearing stated age 2.Eyes: PERRL, no conjunctival injection, and symmetrical lids. 3.ENT: Atraumatic external nose and ears. Moist MM. Neck: Symmetric, trachea midline, No thyromegaly. 4.CVS: +S1/S2, No murmurs or gallops. Peripheral pulses 2+ and equal in all extremities. Brisk capillary refill in all extremities. 5.RESP: Unlabored respiratory effort. Clear to auscultation bilaterally. No wheezes rales or rhonchi 6.GI: Soft, nondistended, mild achiness throughout. No guarding or rebound. No pain at McBurney's point, negative Mejia sign. Achiness seems to be in the lower abdominal region throughout. 7.MSK: Normocephalic/Atraumatic, Extremities w/o deformity or ttp No cyanosis or clubbing, Normal movement of all extremities 8.Skin: Warm, Dry. No rashes or lesions. 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 Sensation grossly intact, no focal neurologic deficits. 10.Psych: (AAO) x3. Appropriate mood and affect Course Vital Signs Vital signs: Vital Signs Temperature 36.9 C 03/07/22 14:39 Pulse 82 03/07/22 14:39 Respiratory Rate 18 03/07/22 14:39 Blood Pressure 126/85 03/07/22 14:39 Pulse Oximetry 97 03/07/22 14:39 Temperature 36.9 C 03/07/22 14:39 Temperature Source Oral 03/07/22 14:39 Pulse 82 03/07/22 14:39 Respiratory Rate 18 03/07/22 14:39 Respiratory Effort 03/07/22 14:41 Blood Pressure 126/85 03/07/22 14:39 Pulse Oximetry 97 03/07/22 14:39 Oxygen Delivery Method Room Air 03/07/22 14:39 Oxygen Flow Rate 0 03/07/22 14:39 Pain Level 6 03/07/22 14:39 Lab/Test Results Lab/Test Results: Laboratory Tests Range/Units 03/07/22 03/07/22 03/07/22 15:01 15:01 15:01 WBC (4.4-10.8) 10^3/uL 12.10 H RBC (4.36-5.78) 10^6/uL 5.13 Hgb (13.5-17.5) g/dL 15.0 Hct (40.0-50.0) % 43.1 MCV (80-95) fL 84 MCH (27.0-33.0) pg 29.2 MCHC (32.0-36.0) % 34.8 RDW (11.8-14.1) % 13.8 Plt Count (130-400) 10^3/uL 214 MPV (8.0-11.0) fL 9.4 Immature Gran % 0.2 Neutrophils % 78.6 Lymphocytes % 10.4 Monocytes % 9.4 Eosinophils % 1.2 Basophils % 0.2 Nucleated RBC % (0.0-0.3) % 0.0 Absolute Neutrophils (1.2-6.7) 10^3/uL 9.51 H Absolute Lymphocytes (1.2-3.4) 10^3/uL 1.26 Absolute Monocytes (0.1-0.8) 10^3/uL 1.14 H Absolute Eosinophils (0.0-0.7) 10^3/uL 0.15 Absolute Basophils (0.0-0.2) 10^3/uL 0.02 Sodium (136-145) mmol/L 135 L Potassium (3.5-5.1) mmol/L 3.9 Chloride (98-107) mmol/L 100 Carbon Dioxide (21.0-32.0) mmol/L 29.3 Anion Gap (3-11) mmol/L 5.7 BUN (7-18) mg/dL 10 Creatinine (0.70-1.30) mg/dL 1.0 Est GFR (CKD-EPI 2020) (mL/min/1.73m2) 100.66 Glucose (74-106) mg/dL 104 Calcium (8.5-10.1) mg/dL 9.0 Magnesium (1.8-2.4) mg/dL 1.8 Total Bilirubin (0.2-1.0) mg/dL 1.5 H AST (15-37) U/L 22 ALT (16-63) U/L 61 Alkaline Phosphatase (46-116) U/L 105 Total Protein (6.4-8.2) g/dL 7.5 Albumin (3.4-5.0) g/dL 4.1 Lipase (73-393) U/L < 10 Urine Color (Yellow) Urine Clarity (Clear) Urine pH (5-8) Ur Specific [place] (1.005-1.025) Urine Protein (Negative) mg/dL Urine Ketones (Negative) mg/dL Urine Blood (Negative) Urine Nitrite (Negative) Urine Bilirubin (Negative) Urine Urobilinogen (Up TO 0.2) EU/dL Ur Leukocyte Esterase (Negative) Urine Glucose (Negative) mg/dL Range/Units 03/07/22 16:07 WBC (4.4-10.8) 10^3/uL RBC (4.36-5.78) 10^6/uL Hgb (13.5-17.5) g/dL Hct (40.0-50.0) % MCV (80-95) fL MCH (27.0-33.0) pg MCHC (32.0-36.0) % RDW (11.8-14.1) % Plt Count (130-400) 10^3/uL MPV (8.0-11.0) fL Immature Gran % Neutrophils % Lymphocytes % Monocytes % Eosinophils % Basophils % Nucleated RBC % (0.0-0.3) % Absolute Neutrophils (1.2-6.7) 10^3/uL Absolute Lymphocytes (1.2-3.4) 10^3/uL Absolute Monocytes (0.1-0.8) 10^3/uL Absolute Eosinophils (0.0-0.7) 10^3/uL Absolute Basophils (0.0-0.2) 10^3/uL Sodium (136-145) mmol/L Potassium (3.5-5.1) mmol/L Chloride (98-107) mmol/L Carbon Dioxide (21.0-32.0) mmol/L Anion Gap (3-11) mmol/L BUN (7-18) mg/dL Creatinine (0.70-1.30) mg/dL Est GFR (CKD-EPI 2020) (mL/min/1.73m2) Glucose (74-106) mg/dL Calcium (8.5-10.1) mg/dL Magnesium (1.8-2.4) mg/dL Total Bilirubin (0.2-1.0) mg/dL AST (15-37) U/L ALT (16-63) U/L Alkaline Phosphatase (46-116) U/L Total Protein (6.4-8.2) g/dL Albumin (3.4-5.0) g/dL Lipase (73-393) U/L Urine Color (Yellow) Yellow Urine Clarity (Clear) Clear Urine pH (5-8) 7.0 Ur Specific [place] (1.005-1.025) 1.010 Urine Protein (Negative) mg/dL Negative Urine Ketones (Negative) mg/dL Negative Urine Blood (Negative) Negative Urine Nitrite (Negative) Negative Urine Bilirubin (Negative) Negative Urine Urobilinogen (Up TO 0.2) EU/dL 0.2 Ur Leukocyte Esterase (Negative) Negative Urine Glucose (Negative) mg/dL Negative
[2022-03-07] MEDS: MORPHine 4 MG/ML SYR IVP (18:26)
[2022-03-07 19:24] VITALS: BP 114/74; PULSE 69; RESP 16; TEMP 36.5; O2SAT 96
[2022-03-07] MEDS: Omnipaque 350 MG/ML 100 ML BTL IV (19:28)
[2022-03-07] MEDS: Normal Saline Flush 10 ML SYR IVP (19:29)
[2022-03-07] MEDS: Normal Saline - Diluent 50 ML VIAL IV (19:29)
[2022-03-07 19:32] LABS: Source Nasal/Nares
[2022-03-07 19:54] VITALS: BP 111/77; PULSE 61; RESP 19; TEMP 36.5; O2SAT 96
[2022-03-07 20:05] LABS: COVID-19 PCR Negative (Negative)
[2022-03-07 20:15] VITALS: BP 111/77; PULSE 61; RESP 19; TEMP 36.5; O2SAT 96
[2022-03-07] MEDS: Ketorolac 30 MG/ML VIAL IVP (20:22)
[2022-03-07] MEDS: Normal Saline 1,000 ML 150 ML IV (20:22)
[2022-03-07] MEDS: MORPHine 2 MG/ML SYR IVP (21:15)
[2022-03-07 23:21] VITALS: BP 127/78; PULSE 83; RESP 21; TEMP 36.6; O2SAT 95
[2022-03-08] MEDS: Normal Saline 1,000 ML 150 ML IV (03:35)
[2022-03-08] MEDS: MORPHine 2 MG/ML SYR IVP (06:18)
--- NOTE | 2022-03-08 06:49 | HPE_ITS ---
Date of service: 03/08/22 Time of Service: 06:49 Assessment and Plan Assessment and plan (1) Small bowel obstruction: Status: Acute Assessment and plan: Mark is a pleasant 36-year-old gentleman who has a history of cystic fibrosis who comes into the emergency department with crampy abdominal pain. CT scan which I reviewed and he has a small bowel obstruction in the right lower quadrant. This morning he does not have any bowel sounds. He did have a bowel movement which was soft. He is not passing any gas. We will continue with IV hydration pain control with narcotics, Toradol and Tylenol. I will restart his pantoprazole. I will also do a Gastrografin challenge today. I have asked him to get up and walk. I will give him an incentive spirometer to work with. We did quickly discussed the possibility of surgery if his obstruction does not resolve. History of Present Illness Consults Consult date: 03/07/22 Requesting physician: Yahir Painter Narrative: Mr. Flores is a 36-year-old gentleman who came into the emergency department yesterday with acute onset of crampy abdominal pain. He has not had any fevers. He did have some nausea but no vomiting. He has a history of cystic fibrosis. He did have pneumonia about 2 months ago which came on suddenly. He states that most of the time his CF affects his got more than a dozen his respiratory system. His only medication is albuterol which she takes very infrequently. 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 He has had several bowel obstructions in the past all of which have resolved on their own. He states sometimes he does have to have enemas to help him clear his colon and then things seem to open up. He did have a bowel movement this morning but is not really passing any gas. Review of Systems Constitutional Constitutional: Denies fatigue, Denies fever(s), Denies headache(s), Denies weakness and Denies weight loss Eyes Eyes: Denies change in vision ENT Ears, Nose, Mouth, and Throat: Denies dysphagia, Denies headache(s) and Denies hoarseness Cardiovascular Cardiovascular: Denies chest pain, Denies chest pain at rest, Denies irregular heart rhythm, Denies palpitations, Denies dyspnea and Denies dyspnea on exertion Respiratory Respiratory: Denies cough, Denies dyspnea and Denies dyspnea on exertion Gastrointestinal Gastrointestinal: Reports as per HPI and Denies dysphagia Genitourinary Genitourinary: Reports system reviewed and no additional complaints, except as documented Musculoskeletal Musculoskeletal: Reports system reviewed and no additional complaints, except as documented Integumentary/Breasts Skin/Breast: Reports system reviewed and no additional complaints, except as documented Neurologic Neurologic: Reports system reviewed and no additional complaints, except as documented, Denies headache(s) and Denies weakness Psychiatric Psychiatric: Reports system reviewed and no additional complaints, except as documented Endocrine Endocrine: Reports system reviewed and no additional complaints, except as documented, Denies fatigue and Denies palpitations Hematologic/Lymphatic Hematologic/Lymphatic: Reports system reviewed and no additional complaints, except as documented PFSH All Active Problems (Updated 03/08/22 @ 07:07 by Silke Hermosillo MD) Small bowel obstruction (Acute) Abdominal pain (Acute) Enlarged lymph nodes (Acute) Cirrhosis of liver (Acute) Cystic fibrosis (Chronic) Medical History Acute appendicitis with generalized peritonitis Acute right flank pain Renal colic on right side Ureterolithiasis Surgical History S/P appendectomy Social History Smoking/Tobacco Use Status: Never Smoking risk assessment performed?: Yes Alcohol Intake: current Alcohol Intake frequency: holidays/special occasions only Alcohol type: beer Drug use: Never Substance use type: does not use Do you feel safe at home: Yes Do you feel safe in your relationship?: Yes Meds Allergies and Home Medications Allergies Allergy/AdvReac Type Severity Reaction Status Date / Time tobramycin AdvReac Severe tinitus Unverified 03/07/22 17:04 Home Medications Medication Instructions Recorded Confirmed Type albuterol sulfate 90 mcg/actuation 2 puff inhalation PRN PRN 11/14/17 03/07/22 History breath activated powder inhaler (ProAir RespiClick) aztreonam lysine 75 mg/mL solution 1 inh inhalation TID 11/14/17 03/07/22 History for nebulization (Steven) cetirizine 10 mg tablet (Zyrtec) 10 mg PO DAILY 11/14/17 03/07/22 History dornase soumya 1 mg/mL solution for 2.5 ml IN BID 11/14/17 03/07/22 History inhalation (Pulmozyme) ergocalciferol (vitamin D2) 1,250 1 tab PO DIRECTED 11/14/17 03/07/22 History mcg (50,000 unit) capsule (Vitamin D2) fxxzwe-awpcjvpx-unaklrx 5 tab PO AC 11/14/17 03/07/22 History 36,000-114,000-180,000 unit capsule,delay rel (Creon) multivitamin (Daily Multi-Vitamin 1 tab PO BID 11/14/17 03/07/22 History tablet) pantoprazole 40 mg tablet,delayed 1 tab PO DAILY 11/14/17 03/07/22 History release polyethylene glycol 3350 17 gram 17 gm PO BID PRN 11/14/17 03/07/22 History oral powder packet sodium chloride 0.9 % for 1 ea inhalation BID 11/14/17 03/07/22 History nebulization sulfamethoxazole 800 See Rx Instructions .Route .COMPLEX 12/02/18 03/07/22 History mg-trimethoprim 160 mg tablet elexacaftor 100 mg-tezacaf 1 tab PO 10/21/21 History 50mg-ivacaf 75mg(d)/ivacaf 150mg(n) tablets (Trikafta) tamsulosin 0.4 mg capsule (Flomax) 0.4 mg PO DAILY #7 caps 10/21/21 03/07/22 Rx Exam Const General: comfortable and no acute distress [facility] Head: normocephalic and atraumatic Resp Effort & Inspection: normal respiratory effort Auscultation: clear to auscultation bilaterally Cardio Rate: regular rate Rhythm: regular rhythm Heart Sounds: no gallops, no murmurs and no rubs GI Inspection: normal to inspection Palpation: soft, hepatomegaly and tender in the RLQ Auscultation: normoactive bowel sounds Results Imaging Abdomen CT scan report/results: report reviewed and image reviewed Labs Result diagrams: 03/07/22 15:01 03/07/22 15:01 Labs: Laboratory Results - last 24 hr 03/07/22 03/07/22 03/07/22 15:01 15:01 15:01 WBC 12.10 H RBC 5.13 Hgb 15.0 Hct 43.1 MCV 84 MCH 29.2 MCHC 34.8 RDW 13.8 Plt Count 214 MPV 9.4 Immature Gran % 0.2 Neutrophils % 78.6 Lymphocytes % 10.4 Monocytes % 9.4 Eosinophils % 1.2 Basophils % 0.2 Nucleated RBC % 0.0 Absolute Neutrophils 9.51 H Absolute Lymphocytes 1.26 Absolute Monocytes 1.14 H Absolute Eosinophils 0.15 Absolute Basophils 0.02 Sodium 135 L Potassium 3.9 Chloride 100 Carbon Dioxide 29.3 Anion Gap 5.7 BUN 10 Creatinine 1.0 Est GFR (CKD-EPI 2020) 100.66 Glucose 104 Calcium 9.0 Magnesium 1.8 Total Bilirubin 1.5 H AST 22 ALT 61 Alkaline Phosphatase 105 Total Protein 7.5 Albumin 4.1 Lipase < 10 Urine Color Urine Clarity Urine pH Ur Specific [place] Urine Protein Urine Ketones Urine Blood Urine Nitrite Urine Bilirubin Urine Urobilinogen Ur Leukocyte Esterase Urine Glucose COVID-19 Source SARS-CoV-2 (PCR) 03/07/22 03/07/22 16:07 19:27 WBC RBC Hgb Hct MCV MCH MCHC RDW Plt Count MPV Immature Gran % Neutrophils % Lymphocytes % Monocytes % Eosinophils % Basophils % Nucleated RBC % Absolute Neutrophils Absolute Lymphocytes Absolute Monocytes Absolute Eosinophils Absolute Basophils Sodium Potassium Chloride Carbon Dioxide Anion Gap BUN Creatinine Est GFR (CKD-EPI 2020) Glucose Calcium Magnesium Total Bilirubin AST ALT Alkaline Phosphatase Total Protein Albumin Lipase Urine Color Yellow Urine Clarity Clear Urine pH 7.0 Ur Specific [place] 1.010 Urine Protein Negative Urine Ketones Negative Urine Blood Negative Urine Nitrite Negative Urine Bilirubin Negative Urine Urobilinogen 0.2 Ur Leukocyte Esterase Negative Urine Glucose Negative COVID-19 Source Nasal/Nares SARS-CoV-2 (PCR) Negative Last Vital Signs Temp 97.9 F 03/07/22 23:21 Pulse 83 03/07/22 23:21 Resp 21 03/07/22 23:21 BP 127/78 03/07/22 23:21 Pulse Ox 95 03/07/22 23:21
[2022-03-08 06:55] LABS: Abs Immature Grans 0.02 10^3/uL (0.0-0.06); Absolute Basophil Count 0.01 10^3/uL (0.0-0.2); Absolute Eosinophil Count 0.17 10^3/uL (0.0-0.7); Absolute Lymphocyte Count 1.36 10^3/uL (1.2-3.4); Absolute Monocyte Count 0.71 10^3/uL (0.1-0.8); Absolute Neutrophil Count 3.98 10^3/uL (1.2-6.7); Basophils % 0.2; Eosinophils % 2.7; HCT 38.9 % (40.0-50.0); HGB 13.4 g/dL (13.5-17.5); Immature Grans % 0.3; Lymphocytes % 21.8; MCH 29.3 pg (27.0-33.0); MCHC 34.4 % (32.0-36.0); MCV 85 fL (80-95); MPV 9.3 fL (8.0-11.0); Monocytes % 11.4; Neutrophils % 63.6; Platelet Count 157 10^3/uL (130-400); RBC 4.58 10^6/uL (4.36-5.78); RDW 14.5 % (11.8-14.1); RDW-SD 44.7 fL; WBC 6.25 10^3/uL (4.4-10.8)
[2022-03-08 07:14] LABS: Anion Gap 5.7 mmol/L (3-11); BUN 11 mg/dL (7-18); CO2 25.3 mmol/L (21.0-32.0); Calcium 8.1 mg/dL (8.5-10.1); Chloride 107 mmol/L (98-107); Estimated GFR 100.66 (mL/min/1.73m2); Glucose 97 mg/dL (74-106); Potassium 4.4 mmol/L (3.5-5.1); Sodium 138 mmol/L (136-145)
[2022-03-08 07:15] VITALS: BP 105/65; PULSE 60; RESP 15; TEMP 36.4; O2SAT 99
--- NOTE | 2022-03-08 09:18 | INITIAL_ITS ---
- If Service Date Differs Date of service: 03/08/22 Time of Service: 09:18 Care Management Initial Assess REASON FOR HOSPITALIZATION:: Small bowel obstruction PAST MEDICAL HISTORY/PAST SURGICAL HISTORY:: All Active Problems (Updated 03/08/22 @ 07:07 by Silke Hermosillo MD). Small bowel obstruction (Acute). Abdominal pain (Acute). Enlarged lymph nodes (Acute). Cirrhosis of liver (Acute). Cystic fibrosis (Chronic). Medical History . Acute appendicitis with generalized peritonitis. Acute right flank pain. Renal colic on right side. Ureterolithiasis. Surgical History . S/P appendectomy PREVIOUS FUNCTIONAL STATUS/SOCIAL/FAMILY SUPPORTS:: Mark lives in [place]. He drives and is independent at baseline. CURRENT FUNCTIONAL STATUS:: Info obtained in this assessment is per chart review. ADVANCE DIRECTIVES:: None on file Has patient been provided with info about the portal/API?: Yes Did the patient sign up for the portal?: No CODE STATUS:: Full Code INSURANCE COVERAGE / FINANCIAL ISSUES:: BC/BS [place] CURRENT HOME/COMMUNITY SERVICES/EQUIPMENT:: None PRIMARY CARE PHYSICIAN:: Iesha Vargas PATIENT/FAMILY EDUCATION NEEDS:: Review discharge instructions, limitations, medications and plan to follow up with community providers. Discuss ask me three and goals of self care. TRANSPORTATION:: Via private vehicle with family. PLAN:: Anticipate mark will discharge home via private vehicle with family, when medically ready. He will follow up with community providers and discharge plan of care as prescribed.
--- NOTE | 2022-03-08 10:59 | DSE_ITS ---
Date of service: 03/08/22 Time of Service: 10:59 DS: Diagnosis Discharge Diagnosis (1) Small bowel obstruction: Status: Acute Discharge Plan Disposition Patient Disposition: Home Condition: Good Discharge Details Reason For Visit: SBO Admit Date/Time: 03/07/22 18:18 Admit Provider: Silke Hermosillo Attending Provider: Silke Hermosillo Primary Care Provider: Iesha Vargas Hospital Course Hospital Course: 36 y/o male with a history of Cystic fibrosis was admitted to the surgical office for abdominal pain and SBO. Since admission patient has been having numerous BMs and his abdominal complaints have resolved. Patient wishes to be d/c home and is planning to follow up with GI at [facility]. D/C home Home Meds and New Rx's Prescriptions: Continued multivitamin [Daily Multi-Vitamin] 1 EACH tablet 1 tab PO BID polyethylene glycol 3350 17 GM powder in packet 17 gm PO BID PRN cetirizine [Zyrtec] 10 MG tablet 10 mg PO DAILY Pulmozyme 1 MG/ML solution 2.5 ml IN BID pantoprazole 40 MG tablet,delayed release (DR/EC) 1 tab PO DAILY ergocalciferol (vitamin D2) [Vitamin D2] 50,000 UNIT capsule 1 tab PO DIRECTED Label Comments: pt. states he no longer takes sodium chloride 3 ML solution for nebulization 1 ea Inhalation BID [place] 75 MG/ML solution for nebulization 1 inh Inhalation TID Creon 1 EACH capsule,delayed release(DR/EC) 5 tab PO AC ProAir RespiClick 90 MCG aerosol powdr breath activated 2 puff Inhalation PRN PRN sulfamethoxazole-trimethoprim 800-160 mg Tablet See Rx Instructions .ROUTE .COMPLEX Rx Instructions: take on opposite months as [place] Trikafta 100-50-75 mg(d) /150 mg (n) tablets, sequential 1 tab PO tamsulosin [Flomax] 0.4 mg capsule 0.4 mg PO DAILY Qty: 7 0RF Discharge Instructions Instructions: Bowel Obstruction (DC) Stand Alone Forms: Nursing Discharge Form Referrals: [facility] [Outside] (Continue services with Gastroenterology Keep your Scheduled Appointment ) Activity:: Activity as Tolerated Equipment/Supplies:: No Equipment Needed Diet:: As Tolerated Discharge Orders Discharge Orders: Discharge Order (Routine); Ordered 03/08/22 Ordered By: Va Larios Discharge Data Discharge Date/Time-TO BE ENTERED AT DEPARTURE: 03/08/22 14:04 DS: Summary Time Spent with Patient providing and/or coordinating discharge services: Less than 30 minutes Status at Discharge Functional status at discharge: independent ambulation Overall status at discharge: patient is back to baseline Mental Status: mental status grossly normal Speech and Movement: speech and movement normal Mood: congruent mood Affect: normal affect Exam Const General: cooperative, healthy appearing and comfortable Orientation: alert, awake and oriented x3 Resp Effort & Inspection: normal respiratory effort, no audible wheezes and no cough GI Inspection: normal to inspection Psych Mental Status: mental status grossly normal Speech and Movement: speech and movement normal Mood: congruent mood Affect: normal affect DS: Data Vitals/I&O Vitals and I&O: Vital Signs Temperature 36.4 C L 03/08/22 07:15 Temperature Source Tympanic 03/08/22 07:15 Pulse 60 03/08/22 07:15 Pulse Rhythm Regular 03/08/22 08:00 Respiratory Rate 15 03/08/22 07:15 Respiratory Effort 03/08/22 08:00 Respiratory Depth Normal 03/08/22 08:00 Respiratory Pattern Normal 03/08/22 08:00 Blood Pressure 105/65 03/08/22 07:15 Pulse Oximetry 99 03/08/22 07:15 Oxygen Delivery Method Room Air 03/08/22 07:15 Oxygen Flow Rate 0 03/08/22 07:15 Pain Level 7 03/08/22 06:18 Intake & Output 03/07/22 03/08/22 03/08/22 18:59 06:59 18:59 Intake Total 1010 / 3010 2000 / 3010 1000 / 1000 Balance 1010 / 3010 2000 / 3010 1000 / 1000 Weight 61.235 kg Intake: IV 1010 / 3010 2000 / 3010 1000 / 1000 Other: Urine Appearance Clear Clear Comment pt stated he voided Stool Size Moderate Moderate Stool Characteristics Soft Voiding Methods Toilet Data Completed and Pending Labs on day of discharge: Labs from last 24 hours 03/08/22 03/08/22 03/07/22 06:46 06:46 19:27 WBC 6.25 RBC 4.58 Hgb 13.4 L Hct 38.9 L MCV 85 MCH 29.3 MCHC 34.4 RDW 14.5 H Plt Count 157 MPV 9.3 Immature Gran % 0.3 Neutrophils % 63.6 Lymphocytes % 21.8 Monocytes % 11.4 Eosinophils % 2.7 Basophils % 0.2 Nucleated RBC % 0.0 Absolute Neutrophils 3.98 Absolute Lymphocytes 1.36 Absolute Monocytes 0.71 Absolute Eosinophils 0.17 Absolute Basophils 0.01 Sodium 138 Potassium 4.4 Chloride 107 Carbon Dioxide 25.3 Anion Gap 5.7 BUN 11 Creatinine 1.0 Est GFR (CKD-EPI 2020) 100.66 Glucose 97 Calcium 8.1 L Magnesium 2.0 Total Bilirubin AST ALT Alkaline Phosphatase Total Protein Albumin Lipase Urine Color Urine Clarity Urine pH Ur Specific [place] Urine Protein Urine Ketones Urine Blood Urine Nitrite Urine Bilirubin Urine Urobilinogen Ur Leukocyte Esterase Urine Glucose COVID-19 Source Nasal/Nares SARS-CoV-2 (PCR) Negative 03/07/22 03/07/22 03/07/22 16:07 15:01 15:01 WBC 12.10 H RBC 5.13 Hgb 15.0 Hct 43.1 MCV 84 MCH 29.2 MCHC 34.8 RDW 13.8 Plt Count 214 MPV 9.4 Immature Gran % 0.2 Neutrophils % 78.6 Lymphocytes % 10.4 Monocytes % 9.4 Eosinophils % 1.2 Basophils % 0.2 Nucleated RBC % 0.0 Absolute Neutrophils 9.51 H Absolute Lymphocytes 1.26 Absolute Monocytes 1.14 H Absolute Eosinophils 0.15 Absolute Basophils 0.02 Sodium 135 L Potassium 3.9 Chloride 100 Carbon Dioxide 29.3 Anion Gap 5.7 BUN 10 Creatinine 1.0 Est GFR (CKD-EPI 2020) 100.66 Glucose 104 Calcium 9.0 Magnesium Total Bilirubin 1.5 H AST 22 ALT 61 Alkaline Phosphatase 105 Total Protein 7.5 Albumin 4.1 Lipase Urine Color Yellow Urine Clarity Clear Urine pH 7.0 Ur Specific [place] 1.010 Urine Protein Negative Urine Ketones Negative Urine Blood Negative Urine Nitrite Negative Urine Bilirubin Negative Urine Urobilinogen 0.2 Ur Leukocyte Esterase Negative Urine Glucose Negative COVID-19 Source SARS-CoV-2 (PCR) 03/07/22 15:01 WBC RBC Hgb Hct MCV MCH MCHC RDW Plt Count MPV Immature Gran % Neutrophils % Lymphocytes % Monocytes % Eosinophils % Basophils % Nucleated RBC % Absolute Neutrophils Absolute Lymphocytes Absolute Monocytes Absolute Eosinophils Absolute Basophils Sodium Potassium Chloride Carbon Dioxide Anion Gap BUN Creatinine Est GFR (CKD-EPI 2020) Glucose Calcium Magnesium 1.8 Total Bilirubin AST ALT Alkaline Phosphatase Total Protein Albumin Lipase < 10 Urine Color Urine Clarity Urine pH Ur Specific [place] Urine Protein Urine Ketones Urine Blood Urine Nitrite Urine Bilirubin Urine Urobilinogen Ur Leukocyte Esterase Urine Glucose COVID-19 Source SARS-CoV-2 (PCR) PFSH All Active Problems (Updated 03/08/22 @ 07:07 by Silke Hermosillo MD) Small bowel obstruction (Acute) Abdominal pain (Acute) Enlarged lymph nodes (Acute) Cirrhosis of liver (Acute) Cystic fibrosis (Chronic) Medical History Acute appendicitis with generalized peritonitis Acute right flank pain Renal colic on right side Ureterolithiasis Surgical History S/P appendectomy Social History Smoking/Tobacco Use Status: Never Smoking risk assessment performed?: Yes Alcohol Intake: current Alcohol Intake frequency: holidays/special occasions only Alcohol type: beer Drug use: Never Substance use type: does not use Do you feel safe at home: Yes Do you feel safe in your relationship?: Yes
--- NOTE | 2022-03-08 12:44 | CMDISCH_ITS ---
- If Service Date Differs Date of service: 03/08/22 Time of Service: 12:44 LACE Index Scoring Tool - Questions: Length of Stay (in days): 1 Acuity (Admit via E.D.?): Yes E.D. Visits: 4 - Answers: Total Score: 8 Risk of Readmission: Low Risk Care Management Discharge Reason for Hospitalization: Small bowel obstruction Discharge Plan: Mark wishes to discharge home and is planning to follow up with [facility], as previously scheduled. Mark is driven by family via private vehicle. No [facility] services are ordered. Mark should return to the ER with new or worsening symptoms. Patient/Family Education Needs: Review discharge instructions, limitations, me dications and plan to follow up with community providers. Discuss ask me three and goals of self care.
== END 2022-03-08 14:04 | disposition home or self-care (01) | DRG 389 ==
LOC: ER 18:26 → MS 19:38
PROVIDERS: Admitting Provider Surgery; Emergency Provider Student in an Organized Health Care Education/Training Program; PCP Family Medicine; Visit Provider Surgery
DX: K56.609 Unspecified intestinal obstruction, unspecified as to partial versus complete obstruction (principal); E84.19 Cystic fibrosis with other intestinal manifestations; R11.10 Vomiting, unspecified; R59.0 Localized enlarged lymph nodes; K74.60 Unspecified cirrhosis of liver; K86.81 Exocrine pancreatic insufficiency
CPT/HCPCS: 36415; 80048; 80053; 83690; 87635; 96361; 96374; 96375; 96376; 99285; 74177; 81003; 83735; 85025; J1885; J2270; J2405; J3490

== ENCOUNTER 2022-12-10 01:36 | Emergency (ER) | payer SELFPAY ==
[2022-12-10 01:38] VITALS: BP 133/86; PULSE 66; RESP 18; TEMP 36.4; O2SAT 98
--- NOTE | 2022-12-10 01:45 | DI.CT_ITS ---
Exam(s) CT ABDOMEN PELVIS WO EXAM: CT ABDOMEN PELVIS WO CLINICAL HISTORY: left flanks pain, hx of kid stones. TECHNIQUE: Imaging Protocol: Axial computed tomography images with coronal and sagittal reformatted images were created and reviewed. COMPARISON: CT CT ABDOMEN PELVIS W from 03/07/2022 FINDINGS: ABDOMEN: Lung Bases: Normal where visualized. Liver: Normal density. No measurable mass. Gallbladder and biliary tract: The gallbladder is contracted with a thickened wall. There is inflamm atory stranding seen around the gallbladder. There is no biliary ductal dilatation. No stones are s een. Pancreas: There has been largely fatty replacement of the pancreas. It is unchanged compared to the prior examination. Spleen: Normal. Kidneys: Normal size, contour and axis.There is bilateral nephrolithiasis. There is a 3 mm stone in the mid left ureter with minimal hydronephrosis. There is a 3 mm stone seen more proximally in the l eft ureter. There is a 4 mm stone seen in the proximal right ureter with mild hydronephrosis. Adrenal glands: No mass is seen. Lymph nodes: Within normal limits. Abdominal Aorta: Abdominal portion non-dilated. PELVIS: Bladder:Symmetric distention, no gross wall thickening. Bowel: No obstruction or bowel wall thickening. There is no evidence of appendicitis. Peritoneal cavity: No ascites, collection or mesenteric inflammatory response. No free air. Reproductive organs: Unremarkable as visualized. Bones: Within normal limits. Soft Tissues: There is a small fat containing umbilical hernia. IMPRESSION: 1. There are bilateral ureteral stones causing bilateral mild hydronephrosis. 2. Bilateral nephrolithiasis. 3. Contracted gallbladder with pericholecystic stranding. No cholelithiasis is seen. Acute cholecys titis cannot be excluded. Gallbladder ultrasound should be considered for further evaluation. RADIATION DOSE DELIVERED: 565.27mGy.cm Total DLP DATA REPOSITORY: All CT scans at this facility are submitted to the National Radiology Data Registry (NRDR) Dose Index Registry (DIR) with the [employer] (A[employer]). RADIATION OPTIMIZATION: All CT scans at this facility use at least one of these dose optimization te chniques: automated exposure control; mA and/or kV adjustment per patient size (includes targeted exa ms where dose is matched to clinical indication); or iterative reconstruction.
--- NOTE | 2022-12-10 01:52 | ED.GENADUL_ITS ---
Discharge Plan Disposition Patient Disposition: Home Condition: Improving Discharge Details Clinical Impression: Bilateral kidney stones Primary Care Provider: Iesha Vargas ED Provider: Harvey Ornelas Home Meds and New Rx's Prescriptions: New tamsulosin 0.4 mg capsule 0.4 mg PO DAILY 3 Days Qty: 3 0RF No Action doxycycline monohydrate 100 mg tablet 100 mg PO BID Qty: 14 0RF multivitamin [Daily Multi-Vitamin] 1 EACH tablet 1 tab PO BID polyethylene glycol 3350 17 GM powder in packet 17 gm PO BID PRN cetirizine [Zyrtec] 10 MG tablet 10 mg PO DAILY Pulmozyme 1 MG/ML solution 2.5 ml IN BID pantoprazole 40 MG tablet,delayed release (DR/EC) 1 tab PO DAILY ergocalciferol (vitamin D2) [Vitamin D2] 50,000 UNIT capsule 1 tab PO DIRECTED Patient Comments: pt. states he no longer takes sodium chloride 3 ML solution for nebulization 1 ea Inhalation BID [place] 75 MG/ML solution for nebulization 1 inh Inhalation TID Creon 1 EACH capsule,delayed release(DR/EC) 5 tab PO AC ProAir RespiClick 90 MCG aerosol powdr breath activated 2 puff Inhalation PRN PRN sulfamethoxazole-trimethoprim 800-160 mg Tablet See Rx Instructions .ROUTE .COMPLEX Rx Instructions: take on opposite months as [place] Trikafta 100-50-75 mg(d) /150 mg (n) tablets, sequential 1 tab PO tamsulosin [Flomax] 0.4 mg capsule 0.4 mg PO DAILY Qty: 7 0RF Discharge Instructions Instructions: Kidney Stones (ED) Additional Instructions: Please follow-up with Dr. Alicea's team of urology next week. Please return to the emergency department for any worsening symptom Medical Decision Making 37-year-old male history of kidney stones presents with left-sided flank pain this evening. Afebrile nontoxic no acute distress. Likely recurrent kidney stones. Must also consider UTI versus less likely pyelonephritis lower suspicion for colonic process or vascular issue. Screening labs CT abdomen pelvis without contrast. Fluids analgesia anti-inflammatory, tamsulosin UA close reassessment 4: 28 patient resting comfortably no acute distress. Evidence of multiple kidney stones without obstruction or infection. CT scan read as abnormal gallbladder, patient does have history of cystic fibrosis, has no right upper quadrant discomfort nausea or vomiting. Home care instructions and return precautions given. We will follow-up with urology next week HPI General Date/Time Provider Initiated Documentation: 12/10/22 01:50 . HPI Narrative: 37-year-old male history of kidney stones, prior stenting presents with left flank plain this evening Related Data Home Medications Medication Instructions Recorded Confirmed albuterol sulfate 90 mcg/actuation 2 puff inhalation PRN PRN 11/14/17 03/07/22 breath activated powder inhaler (ProAir RespiClick) aztreonam lysine 75 mg/mL solution 1 inh inhalation TID 11/14/17 03/07/22 for nebulization ([place]) cetirizine 10 mg tablet (Zyrtec) 10 mg PO DAILY 11/14/17 03/07/22 dornase soumya 1 mg/mL solution for 2.5 ml IN BID 11/14/17 03/07/22 inhalation (Pulmozyme) ergocalciferol (vitamin D2) 1,250 1 tab PO DIRECTED 11/14/17 03/07/22 mcg (50,000 unit) capsule (Vitamin D2) [id number] 5 tab PO AC 11/14/17 03/07/22 36,000-114,000-180,000 unit capsule,delay rel (Creon) multivitamin (Daily Multi-Vitamin 1 tab PO BID 11/14/17 03/07/22 tablet) pantoprazole 40 mg tablet,delayed 1 tab PO DAILY 11/14/17 03/07/22 release polyethylene glycol 3350 17 gram 17 gm PO BID PRN 11/14/17 03/07/22 oral powder packet sodium chloride 0.9 % for 1 ea inhalation BID 11/14/17 03/07/22 nebulization sulfamethoxazole 800 See Rx Instructions .Route .COMPLEX 12/02/18 03/07/22 mg-trimethoprim 160 mg tablet elexacaftor 100 mg-tezacaf 1 tab PO 10/21/21 50mg-ivacaf 75mg(d)/ivacaf 150mg(n) tablets (Trikafta) tamsulosin 0.4 mg capsule (Flomax) 0.4 mg PO DAILY #7 caps 10/21/21 03/07/22 doxycycline monohydrate 100 mg 100 mg PO BID #14 tabs 06/20/22 tablet tamsulosin 0.4 mg capsule 0.4 mg PO DAILY 3 days #3 caps 12/10/22 Previous Rx's Medication Instructions Recorded tamsulosin 0.4 mg capsule (Flomax) 0.4 mg PO DAILY #7 caps 10/21/21 doxycycline monohydrate 100 mg 100 mg PO BID #14 tabs 06/20/22 tablet tamsulosin 0.4 mg capsule 0.4 mg PO DAILY 3 days #3 caps 12/10/22 Allergies Allergy/AdvReac Type Severity Reaction Status Date / Time tobramycin AdvReac Severe tinitus Unverified 12/10/22 01:52 General Stated Complaint: FlankPain CLAIRE: 3 Review of Systems Narrative: Review of Systems Constitutional: negative Eyes: negative ENT: negative Cardiovascular: negative Respiratory: negative Gastrointestinal: negative : Flank pain Musculoskeletal: negative Skin: negative Neurologic: negative Psych: negative PFSH All Active Problems (Updated 12/10/22 @ 04:28 by Harvey Ornelas MD) Small bowel obstruction (Acute) Vomiting (Acute) Bilateral kidney stones (Acute) Abdominal pain (Acute) Cystic fibrosis (Chronic) Medical History Acute appendicitis with generalized peritonitis Acute right flank pain Renal colic on right side Ureterolithiasis Surgical History S/P appendectomy Social History Smoking/Tobacco Use Status: Never Smoking risk assessment performed?: Yes Alcohol Intake: current Alcohol Intake frequency: holidays/special occasions only Alcohol type: beer Drug use: Never Substance use type: does not use Do you feel safe at home: Yes Do you feel safe in your relationship?: Yes Exam Narrative Exam Narrative: Physical Examination General: alert, awake, cooperative, resting comfortably, no acute distress HEENT: normocephalic, atraumatic; PERRL, EOM intact, conjunctiva normal; no nasal discharge; moist mucous membranes, oral and pharyngeal mucosa normal, tolerating secretions Neck: supple, trachea midline; full ROM Chest: normal to inspection Respiratory: normal respiratory effort, speaking in full sentences, clear to auscultation, no wheezing, rales or rhonchi Cardiac: regular rate, regular rhythm, S1S2 intact, no murmurs rubs or gallops GI: abdomen soft, non-tender, non-distended; no palpable mass or hepatosplenomegaly Skin: no lesions, rashes or trauma appreciated Neuro: AAOx3, normal speech, moving all extremities Psych: Appropriate mood and affect Course Vital Signs Vital signs: Vital Signs Temperature 36.4 C L 12/10/22 01:38 Pulse 66 12/10/22 01:38 Respiratory Rate 18 12/10/22 01:38 Blood Pressure 133/86 12/10/22 01:38 Pulse Oximetry 98 12/10/22 01:38 Temperature 36.4 C L 12/10/22 01:38 Pulse 66 12/10/22 01:38 Respiratory Rate 18 12/10/22 01:38 Respiratory Effort Normal 12/10/22 01:43 Blood Pressure 133/86 12/10/22 01:38 Pulse Oximetry 98 12/10/22 01:38 Oxygen Delivery Method Room Air 12/10/22 01:38 Oxygen Flow Rate 0 12/10/22 01:38 Pain Level 8 12/10/22 01:43 PAWSS Have you Been Recently Intoxicated or Drunk Within the Last 30 days?: No Have you Ever Experienced Previous Episodes of Alcohol Withdrawal?: No Have you ever Experienced Withdrawal Seizures?: No Have you ever Experienced Delirium Tremens(DT)s?: No Have you ever undergone Alcohol Rehabilitation Treatment (i.e, inpt ot outpatient treatment programs)?: No Have you ever Experienced Blackouts?: No Have you ever Combined Alcohol with other Downers within the last 90 days?: No Have you ever Combined Alcohol with any other Substance of Abuse during the last 90 days?: No Positive Blood Alcohol level on Presentation? [PCS.BAL]: No Evidence of Increased Autonomic Activity (i.e. HR>120, tremor, sweating, agitation, nausea)?: No Result: 0
[2022-12-10] MEDS: MORPHine 4 MG/ML SYR 2 MG IVP (01:58)
[2022-12-10] MEDS: Ketorolac 15 MG/ML VIAL IVP ×2 (01:58→04:32)
[2022-12-10] MEDS: Tamsulosin 0.4 MG CAPCR PO (01:59)
[2022-12-10] MEDS: Ondansetron 4 MG/2 ML VIAL IVP (01:59)
[2022-12-10] MEDS: Normal Saline 1,000 ML 1000 ML IV (01:59)
[2022-12-10 02:20] LABS: Abs Immature Grans 0.03 10^3/uL (0.0-0.06); Absolute Basophil Count 0.05 10^3/uL (0.0-0.2); Absolute Eosinophil Count 0.19 10^3/uL (0.0-0.7); Absolute Lymphocyte Count 1.82 10^3/uL (1.2-3.4); Absolute Monocyte Count 0.74 10^3/uL (0.1-0.8); Absolute Neutrophil Count 6.14 10^3/uL (1.2-6.7); Basophils % 0.6; Eosinophils % 2.1; HCT 44.9 % (40.0-50.0); HGB 15.9 g/dL (13.5-17.5); Immature Grans % 0.3; Lymphocytes % 20.3; MCH 30.9 pg (27.0-33.0); MCHC 35.4 % (32.0-36.0); MCV 87 fL (80-95); MPV 9.4 fL (8.0-11.0); Monocytes % 8.2; Neutrophils % 68.5; Platelet Count 254 10^3/uL (130-400); RBC 5.15 10^6/uL (4.36-5.78); RDW 12.8 % (11.8-14.1); WBC 8.97 10^3/uL (4.4-10.8)
[2022-12-10 02:31] LABS: ALT 43 U/L (16-63); AST 24 U/L (15-37); Albumin 3.8 g/dL (3.4-5.0); Alkaline Phosphatase 108 U/L (46-116); Anion Gap 10.2 mmol/L (3-11); BUN 11 mg/dL (7-18); Bilirubin, Total 0.9 mg/dL (0.2-1.0); CO2 27.8 mmol/L (21.0-32.0); Chloride 102 mmol/L (98-107); Estimated GFR 100.03 (mL/min/1.73m2); Glucose 97 mg/dL (74-106); Potassium 3.9 mmol/L (3.5-5.1); Sodium 140 mmol/L (136-145); Total Protein 7.3 g/dL (6.4-8.2)
--- NOTE | 2022-12-10 03:42 | DI.VRAD_ITS ---
PROCEDURE INFORMATION: Exam: CT Abdomen And Pelvis Without Contrast Exam date and time: 12/10/2022 2:15 AM Age: 37 years old Clinical indication: Other: Left flank pain, HX of kidney stones TECHNIQUE: Imaging protocol: Computed tomography of the abdomen and pelvis without contrast. Radiation optimization: All CT scans at this facility use at least one of these dose optimization techniques: automated exposure control; mA and/or kV adjustment per patient size (includes targeted exams where dose is matched to clinical indication); or iterative reconstruction. COMPARISON: CT ABDOMEN PELVIS W 03/07/2022 5:38 PM FINDINGS: Liver: Normal. No mass. Gallbladder and bile ducts: Pericholecystic stranding, recommend clinical exclusion of cholecystitis with sonogram for further evaluation as clinically warranted. Pancreas: Fatty atrophy of the pancreas. Spleen: Normal. No splenomegaly. Adrenal glands: Normal. No mass. Kidneys and ureters: 4 mm calculus left UPJ with minimal left hydronephrosis. 3.5 mm calculus right UPJ without right hydronephrosis. Stomach and bowel: Unremarkable. No obstruction. No mucosal thickening. Appendix: No evidence of appendicitis. Intraperitoneal space: Unremarkable. No free air. No significant fluid collection. Vasculature: Unremarkable. No abdominal aortic aneurysm. Lymph nodes: Unremarkable. No enlarged lymph nodes. Urinary bladder: Unremarkable as visualized. Reproductive: Unremarkable as visualized. Bones/joints: Unremarkable. No acute fracture. Soft tissues: Unremarkable. IMPRESSION: 1. Pericholecystic stranding, recommend clinical exclusion of cholecystitis with sonogram for further evaluation as clinically warranted. 2. 4 mm calculus left UPJ with minimal left hydronephrosis. 3. 3.5 mm calculus right UPJ without right hydronephrosis. Dictated and Authenticated by: Gaurang Barksdale MD. Ordering:SONIA Gabriel MD
[2022-12-10 04:06] LABS: Bilirubin Negative (Negative); Blood Large (Negative); Clarity Sl Cloudy (Clear); Glucose Negative (Negative); Ketones Negative (Negative); Leukocyte Esterase Negative (Negative); Nitrite Negative (Negative); Specific Gravity >= 1.030 (1.005-1.025); Urobilinogen 0.2 mg/dL (Up to 0.2); pH 6.5 (5-8)
[2022-12-10 04:10] LABS: Bacteria Negative HPF (Negative); C & S Indicated? No; Casts Negative LPF (Negative); Crystals Negative HPF (Negative); Epithelial Cells Negative HPF (Negative); Mucus Negative (Negative); RBC >50 HPF (0-2); WBC Negative HPF (0-5)
[2022-12-10 04:33] VITALS: BP 137/72; PULSE 72; RESP 16; O2SAT 99
== END 2022-12-10 04:34 | disposition home or self-care (01) ==
PROVIDERS: Emergency Provider Emergency Medicine; PCP Family Medicine
DX: N13.2 Hydronephrosis with renal and ureteral calculous obstruction (principal); Z87.442 Personal history of urinary calculi
CPT/HCPCS: 36415; 80053; 96361; 96374; 96375; 99284; 74176; 81003; 81015; 85025; J1885; J2270; J2405

== ENCOUNTER 2023-02-22 02:39 | Emergency (ER) | payer SELFPAY ==
[2023-02-22] MEDS: Normal Saline 1,000 ML 1000 ML IV (02:45)
[2023-02-22] MEDS: Ondansetron 4 MG/2 ML VIAL IVP (02:45)
[2023-02-22 02:46] VITALS: BP 176/134; PULSE 88; RESP 16; TEMP 36.3; O2SAT 98
[2023-02-22] MEDS: Ketorolac 15 MG/ML VIAL IVP (02:48)
--- NOTE | 2023-02-22 02:48 | W.ED.GENAD ---
Discharge Plan Disposition Patient Disposition: Home Condition: Good Discharge Details Clinical Impression: Mass of head of pancreas, Constipation Primary Care Provider: Iesha Vargas ED Provider: Yahir Painter Home Meds and New Rx's Prescriptions: New docusate sodium [Colace] 100 mg capsule 100 mg PO BID Qty: 60 0RF No Action multivitamin [Daily Multi-Vitamin] 1 EACH tablet 1 tab PO BID polyethylene glycol 3350 17 GM powder in packet 17 gm PO BID PRN cetirizine [Zyrtec] 10 MG tablet 10 mg PO DAILY pantoprazole 40 MG tablet,delayed release (DR/EC) 1 tab PO DAILY ergocalciferol (vitamin D2) [Vitamin D2] 50,000 UNIT capsule 1 tab PO DIRECTED Patient Comments: pt. states he no longer takes sodium chloride 3 ML solution for nebulization 1 ea Inhalation BID Creon 1 EACH capsule,delayed release(DR/EC) 5 tab PO AC ProAir RespiClick 90 MCG aerosol powdr breath activated 2 puff Inhalation PRN PRN Trikafta 100-50-75 mg(d) /150 mg (n) tablets, sequential 1 tab PO tamsulosin [Flomax] 0.4 mg capsule 0.4 mg PO DAILY Qty: 7 0RF Discharge Instructions Instructions: Constipation (ED) Additional Instructions: At this time you have evidence of notable constipation which is likely the cause of your symptoms tonight. Sometime today please take the full bottle of magnesium citrate. Follow this with 5 to 6 cups of Gatorade Powerade or electrolyte solution. You will have some notable cramping as this helps push through the large bowel movement. After your constipation has resolved, please drink 10 to 12 cups of fluid regularly per day. Please take the Colace daily as directed to prevent constipation. Please consume a high-fiber diet. As we discussed together you do have evidence of an atypical enlargement on the head of your pancreas. While this is unlikely to be cancer, there is still the potential concern for cancer. Please follow-up closely with your primary care provider for reassessment and nonemergent outpatient MRI imaging. If you notice any worsening of your symptoms, or any new symptoms such as vomiting, diarrhea, fever, chills, shortness of breath, chest pain, numbness, weakness, or fainting , please return immediately to the emergency department for reevaluation. Please follow up with your primary care provider as soon as possible for reassessment and reevaluation. As always, it was a pleasure participating in your medical care today. Referrals: Iesha Vargas [Primary Care Provider] - Medical Decision Making This is a pleasant 37-year-old male with a past medical history of cystic fibrosis, appendectomy, multiple kidney stones in the past who presents today for evaluation of right lower quadrant flank pain. Patient states that the pain began a few hours ago during the evening. It is worsened. It went from the right flank to right lower quadrant. He denies any vomiting but does admit to nausea. He did urinate before getting here but denies any hematuria. He states the symptoms feel identical to previous kidney stones. No other complaints at this time. He has not taken any medications to help with the pain. Exam demonstrates name pain male, right lower quadrant pain and right CVA tenderness. Differential is highest for kidney stone, but also could represent infection. Obstruction less likely given exam findings. Review of prior CT scans does demonstrate chronically contracted gallbladder. Symptoms appearing consistent with cholecystitis. We will treat the patient's pain, get labs and a urinalysis, give Flomax, monitor closely and reassess. Patient has had multiple radiographic abdominal imaging previously performed, we will hold off on CT scan for the time being. 5 AM On reassessment patient is feeling much better. Pain is resolved. Laboratory work-up demonstrates no white count bandemia or left shift. Electrolytes normal, renal function normal. Urinalysis negative for blood or infection. CT scan results have returned and show evidence of diffuse fatty atrophy of the pancreas as well as a 2 x 2 nodular finding in the expected location of the pancreatic head, this appears to be increased in size from March 07, 2023, concern I will be at low likelihood for potential pancreatic mass. Recommend outpatient MRI for further evaluation. In addition to this there appears to be a notable amount of retained fecal material in the cecum ascending colon and proximal transverse colon which clinically correlates with the location of the patient's pain. No other acute findings otherwise. With the resolution of his symptoms, I do feel that it is likely spasm from the patient's constipation that brought about the symptoms. Lipase is normal. Patient does have a family history of testicular cancer however he personally denies any new masses tumors or nodules or lesions when asked. At this time patient is stable for discharge. We will give magnesium citrate from use, prescription for Colace, recommendations for continued hydration, as well as the importance of close follow-up with his PCP in the next few weeks for reassessment and MRI of the pancreas. Discussed red flags for which to return. I have extensively reviewed the treatment plan and discharge instructions with the patient. I have addressed all patient concerns at this time. The patient was made aware of what symptoms to monitor for that would warrant a return to the emergency department. Discussed the plan with the patient, they demonstrate verbal understanding and agreement with our assessment and plan at this time. The documentation in this chart was dictated using [employer] dictation software. Please excuse any dictation errors. FINDINGS: Lungs: Lung bases clear. Liver: Nodular hepatic contour and relative hypertrophy of the lateral left hepatic segment, nonspecific but commonly seen in the setting of cirrhotic change. Gallbladder and bile ducts: Gallbladder largely decompressed but circumferentially thick-walled with hazy pericholecystic fat stranding, similar in appearance on the comparison study from December 10, 2022. Pancreas: Almost complete fatty replacement of the pancreas. 2.0 cm x 2.3 cm lobulated nodular finding in the expected location of the pancreatic head on image 27 of series 2, previously measuring 1.5 cm x 1.8 cm on the comparison exam from March 07, 2022, uncertain etiology. Spleen: Grossly unremarkable unenhanced spleen. Adrenal glands: Normal appearing adrenal glands. Kidneys and ureters: Nonobstructing renal calculi with the largest measuring 3 mm. No hydronephrosis. No obstructing ureteral stones. Stomach and bowel: No oral contrast. Stomach partially decompressed. No small bowel dilatation to suggest obstruction. Prominent retained fecal material in the cecum, ascending colon, and proximal transverse colon. Downstream colon relatively well evacuated. Apparent mural thickening through the collapsed portions of the sigmoid colon. Artifact of incomplete distention? Acute segmental colitis? No evidence of focal acute diverticulitis. Rectum partially distended with gas. Appendix: Appendix not identified. Surgical material at the cecal apex suggesting a prior appendectomy. Correlation with surgical history recommended. Intraperitoneal space: No gross ascites or free air. Vasculature: Normal caliber abdominal aorta. Mild engorgement of the mesenteric venous structures. Apparent recanalization of the umbilical vein. Enlarged portal and splenic veins. Elevated portal venous pressure? Lymph nodes: No pathologically enlarged mesenteric, retroperitoneal, or pelvic sidewall lymph nodes. Urinary bladder: Urinary bladder partially collapsed but grossly unremarkable, as seen. Reproductive: Normal-appearing prostate gland and seminal vesicles. Bones/joints: No acute fracture seen among the bones of the abdomen or pelvis. Soft tissues: Tiny fat-containing ventral hernia at the umbilicus, doubtful clinical significance. IMPRESSION: 1. Severe diffuse fatty atrophy of the pancreas. 2.0 cm x 2.3 cm nodular finding in the expected location of the pancreatic head, previously measuring 1.5 cm x 1.8 cm on the prior study from March 07, 2023, uncertain etiology but increased in size since the prior exam. Further evaluation by dedicated pancreas protocol MRI is recommended. Although residual pancreatic tissue or an unusually shaped lymph node could perhaps have this appearance, increasing size over time raises concern for growing neoplasm. Further evaluation is strongly recommended. 2. Prominent retained fecal material in the cecum, ascending colon, and proximal transverse colon. Clinical correlation recommended to assess the possibility of right-sided constipation. Downstream colon relatively well evacuated. 3. Apparent mural thickening through the partially collapsed sigmoid colon. Artifact of incomplete distention is suspected although acute segmental colitis could perhaps sending this appearance. 4. Nodular hepatic contour with relative hypertrophy of the lateral left hepatic segment suggesting cirrhotic change. Mild diffuse engorgement of the mesenteric venous structures raising concern for elevated portal venous pressure. Clinical correlation recommended. 5. Gallbladder contracted with circumferential gallbladder wall thickening and hazy pericholecystic fat stranding, uncertain etiology but similar in appearance on the prior exam from December 10, 2022. Thank you for allowing us to participate in the care of your patient. Dictated and Authenticated by: Tien Arteaga MD 02/22/2023 4:24 AM Eastern Time ([place] & [place]) HPI General Date/Time Provider Initiated Documentation: 02/22/23 02:40. HPI Narrative: This is a pleasant 37-year-old male with a past medical history of cystic fibrosis, appendectomy, multiple kidney stones in the past who presents today for evaluation of right lower quadrant flank pain. Patient states that the pain began a few hours ago during the evening. It is worsened. It went from the right flank to right lower quadrant. He denies any vomiting but does admit to nausea. He did urinate before getting here but denies any hematuria. He states the symptoms feel identical to previous kidney stones. No other complaints at this time. He has not taken any medications to help with the pain. Related Data Home Medications Medication Instructions Recorded Confirmed albuterol sulfate 90 mcg/actuation 2 puff inhalation PRN PRN 11/14/17 02/22/23 breath activated powder inhaler (ProAir RespiClick) cetirizine 10 mg tablet (Zyrtec) 10 mg PO DAILY 11/14/17 02/22/23 ergocalciferol (vitamin D2) 1,250 1 tab PO DIRECTED 11/14/17 02/22/23 mcg (50,000 unit) capsule (Vitamin D2) ititwh-eqzynogr-pohmmet 5 tab PO AC 11/14/17 02/22/23 36,000-114,000-180,000 unit capsule,delay rel (Creon) multivitamin (Daily Multi-Vitamin 1 tab PO BID 11/14/17 02/22/23 tablet) pantoprazole 40 mg tablet,delayed 1 tab PO DAILY 11/14/17 02/22/23 release polyethylene glycol 3350 17 gram 17 gm PO BID PRN 11/14/17 02/22/23 oral powder packet sodium chloride 0.9 % for 1 ea inhalation BID 11/14/17 02/22/23 nebulization elexacaftor 100 mg-tezacaf 1 tab PO 10/21/21 50mg-ivacaf 75mg(d)/ivacaf 150mg(n) tablets (Trikafta) tamsulosin 0.4 mg capsule (Flomax) 0.4 mg PO DAILY #7 caps 10/21/21 02/22/23 docusate sodium 100 mg capsule 100 mg PO BID #60 caps 02/22/23 (Colace) Previous Rx's Medication Instructions Recorded tamsulosin 0.4 mg capsule (Flomax) 0.4 mg PO DAILY #7 caps 10/21/21 docusate sodium 100 mg capsule 100 mg PO BID #60 caps 02/22/23 (Colace) Allergies Allergy/AdvReac Type Severity Reaction Status Date / Time tobramycin AdvReac Severe tinitus Unverified 02/22/23 02:57 General CLAIRE: 3 Review of Systems All systems reviewed & are unremarkable except as noted in HPI and below PFSH All Active Problems (Updated 02/22/23 @ 05:05 by Yahir Painter DO) Constipation (Acute) Mass of head of pancreas (Acute) Vomiting (Acute) Small bowel obstruction (Acute) Abdominal pain (Acute) Cystic fibrosis (Chronic) Medical History Small bowel obstruction Acute right flank pain Renal colic on right side Ureterolithiasis Acute appendicitis with generalized peritonitis Surgical History S/P appendectomy Social History Smoking/Tobacco Use Status: Never Smoking risk assessment performed?: Yes Alcohol Intake: current Alcohol Intake frequency: holidays/special occasions only Alcohol type: beer Drug use: Never Substance use type: does not use Do you feel safe at home: Yes Do you feel safe in your relationship?: Yes Exam Narrative Exam Narrative: 1.Const: Well-nourished, Well-developed, appearing stated age 2.Eyes: PERRL, no conjunctival injection, and symmetrical lids. 3.ENT: Atraumatic external nose and ears. Moist MM. Neck: Symmetric, trachea midline, No thyromegaly. 4.CVS: +S1/S2, No murmurs or gallops. Peripheral pulses 2+ and equal in all extremities. Brisk capillary refill in all extremities. 5.RESP: Unlabored respiratory effort. Clear to auscultation bilaterally. No wheezes rales or rhonchi 6.GI: Soft, nondistended, mild voluntary guarding with right lower quadrant tenderness and CVA tenderness on the right. 7.MSK: Normocephalic/Atraumatic, Extremities w/o deformity or ttp No cyanosis or clubbing, Normal movement of all extremities 8.Skin: Warm, Dry. No rashes or lesions. 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 Sensation grossly intact, no focal neurologic deficits. 10.Psych: (AAO) x3. Appropriate mood and affect
[2023-02-22] MEDS: Tamsulosin 0.4 MG CAPCR PO (02:52)
[2023-02-22 02:55] VITALS: BP 176/134; PULSE 88; RESP 16; TEMP 36.3; O2SAT 98
[2023-02-22 02:59] LABS: Abs Immature Grans 0.04 10^3/uL (0.0-0.06); Absolute Basophil Count 0.06 10^3/uL (0.0-0.2); Absolute Eosinophil Count 0.37 10^3/uL (0.0-0.7); Absolute Lymphocyte Count 3.08 10^3/uL (1.2-3.4); Absolute Monocyte Count 0.94 10^3/uL (0.1-0.8); Absolute Neutrophil Count 5.76 10^3/uL (1.2-6.7); Basophils % 0.6; Eosinophils % 3.6; HCT 46.3 % (40.0-50.0); HGB 16.6 g/dL (13.5-17.5); Immature Grans % 0.4; MCH 30.3 pg (27.0-33.0); MCHC 35.9 % (32.0-36.0); MCV 85 fL (80-95); MPV 8.8 fL (8.0-11.0); Monocytes % 9.2; Neutrophils % 56.2; Platelet Count 260 10^3/uL (130-400); RBC 5.47 10^6/uL (4.36-5.78); RDW 12.9 % (11.8-14.1); RDW-SD 39.2 fL; WBC 10.25 10^3/uL (4.4-10.8)
--- NOTE | 2023-02-22 03:15 | DI.CT_ITS ---
Exam(s) CT ABDOMEN PELVIS WO EXAM: CT ABDOMEN PELVIS WO CLINICAL HISTORY: right LQ pain, eval for stone. TECHNIQUE: Imaging Protocol: Axial computed tomography images with coronal and sagittal reformatted images were created and reviewed. COMPARISON: CT ABD PELVIS WITH CONTRAST from 11/14/2017 CT DI.CTAPWO from 01/07/[address] ABDOMEN PELVIS WO from 12/10/2022 FINDINGS: Lung Bases: Normal where visualized. Liver: Diffusely increased density. Prominence of the portal vein. Findings appear stable from 2018 . No measurable mass. Gallbladder and biliary tract: Gallbladder is contracted. This is unchanged from 2018. No visible r adiodense calculus. No biliary ductal dilation. Pancreas: Very little pancreatic tissue is visible. There are few nodular density in the region of t he pancreatic head could represent residual pancreatic tissue. Present on previous examinations. Spleen: Normal size. Kidneys: Normal size, contour and axis.Tiny bilateral nonobstructing stones. No masses seen. Adrenal glands: No mass is seen. Lymph nodes: Within normal limits. Vasculature: Abdominal aorta non-dilated. Bladder:No stone. No gross wall thickening. No evidence of mass. Bowel: No obstruction. Question of mild wall thickening at the junction of the descending and sigmoi d colon and mild bowel wall edema. No diverticula. Large quantity of stool in the ascending and t ransverse colon.. Appendix not visualized. Peritoneal cavity: No ascites.No free air. No focal collection. No mesenteric inflammatory response. Reproductive organs: Within normal limits. Bones: Unremarkable for age. Soft Tissues: Within normal limits. IMPRESSION: Bilateral nephrolithiasis. No hydronephrosis or ureteral calculi. No bladder calculi. Question of inflammation of the proximal sigmoid colon junction of sigmoid and descending colon. Chronic findings of increased liver density and nodular contour as well as chronic gallbladder contra ction. Pancreas extremely atrophic. Nodular densities at pancreatic head also appear chronic and co uld represent residual pancreatic tissue. RADIATION DOSE DELIVERED: Total DLP Total DLP DATA REPOSITORY: All CT scans at this facility are submitted to the National Radiology Data Registry (NRDR) Dose Index Registry (DIR) with the [employer] (ACR). RADIATION OPTIMIZATION: All CT scans at this facility use at least one of these dose optimization te chniques: automated exposure control; mA and/or kV adjustment per patient size (includes targeted exa ms where dose is matched to clinical indication); or iterative reconstruction.
[2023-02-22 03:19] LABS: ALT 59 U/L (16-63); AST 33 U/L (15-37); Albumin 3.9 g/dL (3.4-5.0); Alkaline Phosphatase 113 U/L (46-116); Anion Gap 9.2 mmol/L (3-11); BUN 15 mg/dL (7-18); CO2 27.8 mmol/L (21.0-32.0); CREATININE 1.1 mg/dL (0.70-1.30); Calcium 9.3 mg/dL (8.5-10.1); Chloride 102 mmol/L (98-107); Estimated GFR 89.22 (mL/min/1.73m2); Glucose 116 mg/dL (74-106); Lipase < 10 U/L (16-77); Sodium 139 mmol/L (136-145); Total Protein 7.6 g/dL (6.4-8.2)
[2023-02-22 04:07] VITALS: BP 135/98; PULSE 63; RESP 16; O2SAT 97
--- NOTE | 2023-02-22 04:25 | DI.VRAD_ITS ---
PROCEDURE INFORMATION: Exam: CT Abdomen And Pelvis Without Contrast Exam date and time: 02/22/2023 3:42 AM Age: 37 years old Clinical indication: Abdominal pain; Flank; Right lower quadrant (rlq); Patient HX: Rlq pain, eval for stone TECHNIQUE: Imaging protocol: Computed tomography of the abdomen and pelvis without contrast. COMPARISON: CT ABDOMEN PELVIS WO 12/10/2022 2:15 AM FINDINGS: Lungs: Lung bases clear. Liver: Nodular hepatic contour and relative hypertrophy of the lateral left hepatic segment, nonspecific but commonly seen in the setting of cirrhotic change. Gallbladder and bile ducts: Gallbladder largely decompressed but circumferentially thick-walled with hazy pericholecystic fat stranding, similar in appearance on the comparison study from December 10, 2022. Pancreas: Almost complete fatty replacement of the pancreas. 2.0 cm x 2.3 cm lobulated nodular finding in the expected location of the pancreatic head on image 27 of series 2, previously measuring 1.5 cm x 1.8 cm on the comparison exam from March 07, 2022, uncertain etiology. Spleen: Grossly unremarkable unenhanced spleen. Adrenal glands: Normal appearing adrenal glands. Kidneys and ureters: Nonobstructing renal calculi with the largest measuring 3 mm. No hydronephrosis. No obstructing ureteral stones. Stomach and bowel: No oral contrast. Stomach partially decompressed. No small bowel dilatation to suggest obstruction. Prominent retained fecal material in the cecum, ascending colon, and proximal transverse colon. Downstream colon relatively well evacuated. Apparent mural thickening through the collapsed portions of the sigmoid colon. Artifact of incomplete distention? Acute segmental colitis? No evidence of focal acute diverticulitis. Rectum partially distended with gas. Appendix: Appendix not identified. Surgical material at the cecal apex suggesting a prior appendectomy. Correlation with surgical history recommended. Intraperitoneal space: No gross ascites or free air. Vasculature: Normal caliber abdominal aorta. Mild engorgement of the mesenteric venous structures. Apparent recanalization of the umbilical vein. Enlarged portal and splenic veins. Elevated portal venous pressure? Lymph nodes: No pathologically enlarged mesenteric, retroperitoneal, or pelvic sidewall lymph nodes. Urinary bladder: Urinary bladder partially collapsed but grossly unremarkable, as seen. Reproductive: Normal-appearing prostate gland and seminal vesicles. Bones/joints: No acute fracture seen among the bones of the abdomen or pelvis. Soft tissues: Tiny fat-containing ventral hernia at the umbilicus, doubtful clinical significance. IMPRESSION: 1. Severe diffuse fatty atrophy of the pancreas. 2.0 cm x 2.3 cm nodular finding in the expected location of the pancreatic head, previously measuring 1.5 cm x 1.8 cm on the prior study from March 07, 2023, uncertain etiology but increased in size since the prior exam. Further evaluation by dedicated pancreas protocol MRI is recommended. Although residual pancreatic tissue or an unusually shaped lymph node could perhaps have this appearance, increasing size over time raises concern for growing neoplasm. Further evaluation is strongly recommended. 2. Prominent retained fecal material in the cecum, ascending colon, and proximal transverse colon. Clinical correlation recommended to assess the possibility of right-sided constipation. Downstream colon relatively well evacuated. 3. Apparent mural thickening through the partially collapsed sigmoid colon. Artifact of incomplete distention is suspected although acute segmental colitis could perhaps sending this appearance. 4. Nodular hepatic contour with relative hypertrophy of the lateral left hepatic segment suggesting cirrhotic change. Mild diffuse engorgement of the mesenteric venous structures raising concern for elevated portal venous pressure. Clinical correlation recommended. 5. Gallbladder contracted with circumferential gallbladder wall thickening and hazy pericholecystic fat stranding, uncertain etiology but similar in appearance on the prior exam from December 10, 2022. Dictated and Authenticated by: Tien Arteaga MD. Ordering:YENIFER Sinclair MD
[2023-02-22 04:41] LABS: Bilirubin Negative (Negative); Blood Negative (Negative); Clarity Clear (Clear); Glucose Negative (Negative); Ketones Negative (Negative); Leukocyte Esterase Negative (Negative); Nitrite Negative (Negative); Specific Gravity >= 1.030 (1.005-1.025); Urobilinogen 0.2 mg/dL (Up to 0.2); pH 5.5 (5-8)
[2023-02-22] MEDS: Magnesium Citrate 300 ML BTL 150 ML PO (05:16)
[2023-02-22 05:17] VITALS: BP 135/98; PULSE 63; RESP 16; O2SAT 97
[2023-02-22] MEDS: Docusate Sodium 100 MG CAP PO (05:17)
== END 2023-02-22 05:18 | disposition home or self-care (01) ==
LOC: ER 05:20
PROVIDERS: Emergency Provider Student in an Organized Health Care Education/Training Program; PCP Family Medicine
DX: R10.32 Left lower quadrant pain (principal); K86.89 Other specified diseases of pancreas; K59.00 Constipation, unspecified; N20.0 Calculus of kidney
CPT/HCPCS: 36415; 80053; 83690; 96361; 96374; 96375; 96376; 99284; 74176; 81003; 85025; 99283; J1885; J2405

== ENCOUNTER 2023-02-23 20:18 | Emergency (ER) | payer SELFPAY ==
--- NOTE | 2023-02-23 20:24 | ED.GENADUL_ITS ---
Discharge Plan Disposition Patient Disposition: Home Condition: Good Discharge Details Chief Complaint: Abd Prob Clinical Impression: Abdominal pain Primary Care Provider: Iesha Vargas ED Provider: Magan Soriano Home Meds and New Rx's Prescriptions: No Action multivitamin [Daily Multi-Vitamin] 1 EACH tablet 1 tab PO BID polyethylene glycol 3350 17 GM powder in packet 17 gm PO BID PRN cetirizine [Zyrtec] 10 MG tablet 10 mg PO DAILY pantoprazole 40 MG tablet,delayed release (DR/EC) 1 tab PO DAILY ergocalciferol (vitamin D2) [Vitamin D2] 50,000 UNIT capsule 1 tab PO DIRECTED Patient Comments: pt. states he no longer takes sodium chloride 3 ML solution for nebulization 1 ea Inhalation BID Creon 1 EACH capsule,delayed release(DR/EC) 5 tab PO AC ProAir RespiClick 90 MCG aerosol powdr breath activated 2 puff Inhalation PRN PRN docusate sodium [Colace] 100 mg capsule 100 mg PO BID Qty: 60 0RF Trikafta 100-50-75 mg(d) /150 mg (n) tablets, sequential 1 tab PO tamsulosin [Flomax] 0.4 mg capsule 0.4 mg PO DAILY Qty: 7 0RF Discharge Instructions Instructions: Abdominal Pain (ED) Additional Instructions: Your reevaluation today is reassuring. Laboratory studies remain unchanged. Abdominal x-ray shows no evidence of bowel obstruction. Still fair amount of stool in the right colon so you should take MiraLAX once a day as we discussed. Please follow-up with your primary care this coming week. Return to the ED for fever, vomiting, worsening abdominal pain, other concerns. Medical Decision Making Medical Records Medical records reviewed: Yes I reviewed the patient's medical records. Medical records narrative: Patient presenting to ED with continued abdominal pain for which she was seen here yesterday. He does report drinking a bottle of mag citrate as instructed and did have a very large bowel movement. Continues to have the same abdominal pain which is right-sided in nature and also present in the back. Has had nausea and scant vomiting. Reports no BM or flatus since having the mag citrate. Exam is notable for pain consistent and diffuse abdominal tenderness that is notably absent when distracted. There is no left lower quadrant tenderness. He is status post appendectomy in the past. He has had multiple imaging studies and reports getting CT of the thorax every year because of his CF. For now we will plan IV, fluids, ketorolac, prochlorperazine and repeat laboratory studies. Will obtain abdominal x-ray, but hold off on repeat CT for now. Patient sleeping after fluids and ketorolac/prochlorperazine. Laboratory studies remain unremarkable with a white count of 10.9, normal chemistries, essentially normal LFTs except for bili of 1.4, lipase less than 10. Urine negative. Abdominal x-ray with stool still present in the right colon though not overly so. Patient feeling better and I have discussed discharge instructions with him. He will follow-up with primary care. Return precautions provided. Lab Data Lab results reviewed: Yes I reviewed the patient's lab results. HPI General Mode of arrival: ambulatory . Date/Time Provider Initiated Documentation: 02/23/23 20:24 . Limitations to Documentation: no limitations . Information obtained by: patient . HPI Narrative: Patient presents to ED with continued abdominal pain, nausea with occasional emesis, no flatus or BM. Patient seen here yesterday for same with a CT scan that showed a large amount of stool throughout the colon but no obstruction. No evidence of ureteral stones. Final read with questionable inflammatory changes at the junction of the descending and sigmoid colon. There is no evidence of diverticuli. Patient reports similar episodes of pain like this in the past. He does have a history of cystic fibrosis. He does have pancreatic problems but I do not see a definitive diagnosis of pancreatitis in his records. He does have back pain. All of his pain is right sided. Has not taken his temperature at home but reports sweats and chills. Denies any hematuria. He was given magnesium citrate on his last visit and had a large bowel movement after that but none since. Related Data Home Medications Medication Instructions Recorded Confirmed albuterol sulfate 90 mcg/actuation 2 puff inhalation PRN PRN 11/14/17 02/22/23 breath activated powder inhaler (ProAir RespiClick) cetirizine 10 mg tablet (Zyrtec) 10 mg PO DAILY 11/14/17 02/22/23 ergocalciferol (vitamin D2) 1,250 1 tab PO DIRECTED 11/14/17 02/22/23 mcg (50,000 unit) capsule (Vitamin D2) exbivg-louxclgg-cpocemg 5 tab PO AC 11/14/17 02/22/23 36,000-114,000-180,000 unit capsule,delay rel (Creon) multivitamin (Daily Multi-Vitamin 1 tab PO BID 11/14/17 02/22/23 tablet) pantoprazole 40 mg tablet,delayed 1 tab PO DAILY 11/14/17 02/22/23 release polyethylene glycol 3350 17 gram 17 gm PO BID PRN 11/14/17 02/22/23 oral powder packet sodium chloride 0.9 % for 1 ea inhalation BID 11/14/17 02/22/23 nebulization elexacaftor 100 mg-tezacaf 1 tab PO 10/21/21 50mg-ivacaf 75mg(d)/ivacaf 150mg(n) tablets (Trikafta) tamsulosin 0.4 mg capsule (Flomax) 0.4 mg PO DAILY #7 caps 10/21/21 02/22/23 docusate sodium 100 mg capsule 100 mg PO BID #60 caps 02/22/23 (Colace) Previous Rx's Medication Instructions Recorded tamsulosin 0.4 mg capsule (Flomax) 0.4 mg PO DAILY #7 caps 10/21/21 docusate sodium 100 mg capsule 100 mg PO BID #60 caps 02/22/23 (Colace) Allergies Allergy/AdvReac Type Severity Reaction Status Date / Time tobramycin AdvReac Severe tinitus Unverified 02/22/23 02:57 General CLAIRE: 3 Review of Systems Narrative: per HPI PFSH All Active Problems (Updated 02/23/23 @ 23:23 by Magan Soriano MD) Constipation (Acute) Mass of head of pancreas (Acute) Vomiting (Acute) Small bowel obstruction (Acute) Abdominal pain (Acute) Medical History Bilateral kidney stones Cystic fibrosis Small bowel obstruction Surgical History S/P appendectomy Social History Smoking/Tobacco Use Status: Never Smoking risk assessment performed?: Yes Alcohol Intake: current Alcohol Intake frequency: holidays/special occasions only Alcohol type: beer Drug use: Never Substance use type: does not use Do you feel safe at home: Yes Do you feel safe in your relationship?: Yes Exam Narrative Exam Narrative: Const: WDWN male in NAD. HEENT: NC/AT. Normal facial exam. Eyes: Normal conjunctiva and sclera. Neck: Supple. Trachea midline. Lungs: Normal respiratory effort. Cor: Good radial pulses. GI: Soft/ND. Seems to be diffusely tender but is inconsistent and with distraction is relatively benign. Definitely not focal LLQ tenderness. Neuro: A+O x 3. Normal speech, mentation, gait. Cranial nerves II - XII grossly intact. No gross motor or sensory deficit. Ext: No C/C/E. Skin: Warm and dry without rash.
[2023-02-23 20:25] VITALS: BP 174/102; PULSE 62; RESP 16; TEMP 36.8; O2SAT 98
[2023-02-23 20:28] VITALS: BP 174/102; PULSE 58; PULSE 72; RESP 16; TEMP 37; O2SAT 98
--- NOTE | 2023-02-23 20:30 | DI.RAD_ITS ---
Exam(s) XR ABD FLAT UPRIGHT PA CHEST CLINICAL HISTORY: abdominal pain. COMPARISON: CR LEFT RIBS TO INCLUDE CXR from 06/21/2012 FINDINGS: LUNGS: Increased interstitial changes, greatest in the upper lobes.. Upper lobe bronchiectasis visib le. No infiltrate. No pleural abnormality seen. HEART: Normal. MEDIASTINUM: Normal. BOWEL GAS PATTERN: Mildly dilated bowel loop seen in the left upper quadrant which may be cyst small or large bowel. Are remainder of the small bowel is nondistended. No air-fluid levels seen. ABNORMAL COLLECTIONS OF AIR: No abnormal collection of air. No pneumoperitoneum. CALCIFICATIONS: None. No radiopaque renal, ureteral, or bladder calcification. OTHER FINDINGS: Small metallic densities noted in the right lower quadrant likely related to prior ap pendectomy. IMPRESSION: 1. Mild dilatation of bowel loop in upper abdomen. 2. No acute pulmonary findings. Interstitial changes and bronchiectasis.
[2023-02-23] MEDS: Ketorolac 30 MG/ML VIAL IVP (20:49)
[2023-02-23] MEDS: Prochlorperazine 10 MG/2 ML VIAL IVP (20:49)
[2023-02-23] MEDS: Lactated Ringers 1,000 ML 1000 ML IV ×2 (20:49→22:15)
[2023-02-23 20:50] LABS: Abs Immature Grans 0.03 10^3/uL (0.0-0.06); Absolute Basophil Count 0.05 10^3/uL (0.0-0.2); Absolute Eosinophil Count 0.11 10^3/uL (0.0-0.7); Absolute Lymphocyte Count 1.32 10^3/uL (1.2-3.4); Absolute Monocyte Count 0.81 10^3/uL (0.1-0.8); Basophils % 0.5; HGB 15.9 g/dL (13.5-17.5); Immature Grans % 0.3; Lymphocytes % 12.1; MCH 30.9 pg (27.0-33.0); MCHC 36.1 % (32.0-36.0); MCV 85 fL (80-95); Monocytes % 7.4; Neutrophils % 78.7; Platelet Count 245 10^3/uL (130-400); RBC 5.15 10^6/uL (4.36-5.78); RDW 12.8 % (11.8-14.1); RDW-SD 39.3 fL; WBC 10.93 10^3/uL (4.4-10.8)
[2023-02-23 21:08] LABS: ALT 57 U/L (16-63); AST 31 U/L (15-37); Alkaline Phosphatase 116 U/L (46-116); BUN 8 mg/dL (7-18); Bilirubin, Total 1.4 mg/dL (0.2-1.0); CREATININE 0.9 mg/dL (0.70-1.30); Calcium 9.3 mg/dL (8.5-10.1); Chloride 101 mmol/L (98-107); Estimated GFR 113.51 (mL/min/1.73m2); Glucose 117 mg/dL (74-106); Lipase < 10 U/L (16-77); Magnesium 2.3 mg/dL (1.8-2.4); Potassium 3.8 mmol/L (3.5-5.1); Sodium 137 mmol/L (136-145); Total Protein 7.7 g/dL (6.4-8.2)
--- NOTE | 2023-02-23 22:23 | DI.VRAD_ITS ---
PROCEDURE INFORMATION: Exam: XR Complete Acute Abdomen Series Including Chest Exam date and time: 02/23/2023 21:36 Age: 37 years old Clinical indication: Abdominal pain; Generalized TECHNIQUE: Imaging protocol: Radiologic exam. Complete acute abdomen series, including 2 or more views of the abdomen and a single view chest. COMPARISON: CT ABDOMEN PELVIS WO 02/22/2023 03:42 FINDINGS: Lungs: Mild central interstitial thickening. No airspace consolidation. Pleural spaces: No pleural effusions. No pneumothorax. Heart/Mediastinum: No cardiomegaly. Gastrointestinal tract: Single moderately dilated gas-filled loop of left-sided small bowel. Normal stool burden in the colon without pathologic dilation. Intraperitoneal space: No free air. Organs: No stones project over the renal shadows. Bones/joints: No acute fracture. Soft tissues: No suspicious lesions. IMPRESSION: 1. Interstitial disease suggesting bronchitis or atypical infection. 2. Single moderately dilated gas-filled loop of left-sided small bowel. Dictated and Authenticated by: Shwetha Flores MD. Ordering:POLI Carrero MD
[2023-02-23 23:03] LABS: Bilirubin Negative (Negative); Blood Trace-intact (Negative); Clarity Clear (Clear); Glucose Negative (Negative); Ketones Trace mg/dL (Negative); Leukocyte Esterase Negative (Negative); Nitrite Negative (Negative); Specific Gravity 1.015 (1.005-1.025); Urobilinogen 0.2 mg/dL (Up to 0.2); pH 7.5 (5-8)
[2023-02-23 23:09] LABS: Bacteria Few HPF (Negative); Crystals Few Amorphous HPF (Negative); Epithelial Cells Negative HPF (Negative); WBC Negative HPF (0-5)
[2023-02-23 23:10] LABS: C & S Indicated? No; Casts Negative LPF (Negative); Mucus Negative (Negative)
[2023-02-24 00:49] VITALS: BP 146/108; PULSE 64; RESP 16; O2SAT 97
== END 2023-02-24 00:50 | disposition home or self-care (01) ==
PROVIDERS: Emergency Provider Emergency Medicine; PCP Family Medicine
DX: R10.31 Right lower quadrant pain (principal); R11.0 Nausea; E84.9 Cystic fibrosis, unspecified
CPT/HCPCS: 36415; 80053; 83690; 96361; 96374; 96375; 99283; 74022; 81003; 81015; 83605; 83735; 85025; J0780; J1885

== ENCOUNTER 2023-09-08 02:41 | Emergency (ER) | payer SELFPAY ==
[2023-09-08] VITALS (10 sets, daily range): BP systolic 136–184; BP diastolic 94–123; PULSE 52–60; RESP 14–16; TEMP 36.3–36.6; O2SAT 95–98
--- NOTE | 2023-09-08 02:46 | ED.GENADUL_ITS ---
Discharge Plan Disposition Patient Disposition: Home Condition: Improving Discharge Details Clinical Impression: Nausea & vomiting, Abdominal pain Primary Care Provider: Iesha Vargas ED Provider: Magan Soriano [place] Meds and New Rx's Prescriptions: Continued pantoprazole 40 MG tablet,delayed release (DR/EC) 1 tab PO DAILY ProAir RespiClick 90 MCG aerosol powdr breath activated 2 puff Inhalation PRN PRN Trikafta 100-50-75 mg(d) /150 mg (n) tablets, sequential 1 tab PO DIRECTED Discharge Instructions Instructions: Acute Nausea and Vomiting (ED), Abdominal Pain (ED) Additional Instructions: You were seen in the ED for abdominal pain and vomiting. Your laboratory studies are reassuring. You did have some tenderness in the right upper quadrant which may possibly be related to gallbladder disease. Since you feel so much better you asked for discharge to follow-up with [facility] and primary care. Please return to ED for any fever, new or worsening pain, persistent vomiting, chest pain or shortness of breath. Referrals: Iesha Vargas [Primary Care Provider] - [facility] General Mode of arrival: ambulatory . Date/Time Provider Initiated Documentation: 09/08/23 02:43 . Limitations to Documentation: no limitations . Information obtained by: patient, RN notes reviewed and old records reviewed . HPI Narrative: Patient presents to ED with complaint of right-sided back/flank/abdominal pain with associated vomiting. Symptoms began in the afternoon after taking his Trikafta which he had been out of for about a week. Has not had problems in the past taking this medication. Has felt hot and cold but no fever that he is aware of. No chest pain. He has a baseline cough and shortness of breath from his cystic fibrosis. Pain is mostly right upper abdomen and back. Denies any hematemesis. Denies any urinary symptoms. Occasionally has blood prior to bowel movement but no blood in the stool or dark-colored stool. Stool is soft but not diarrhea. Has a history of kidney stones. He is status post appendectomy. He has had small bowel obstruction in the past. Has never had pancreatitis. Related Data Home Medications Medication Instructions Recorded Confirmed albuterol sulfate 90 mcg/actuation 2 puff inhalation PRN PRN 11/14/17 09/08/23 breath activated powder inhaler (ProAir RespiClick) pantoprazole 40 mg tablet,delayed 1 tab PO DAILY 11/14/17 09/08/23 release elexacaftor 100 mg-tezacaf 1 tab PO DIRECTED 10/21/21 09/08/23 50mg-ivacaf 75mg(d)/ivacaf 150mg(n) tablets (Trikafta) Allergies Allergy/AdvReac Type Severity Reaction Status Date / Time tobramycin AdvReac Severe tinitus Verified 09/08/23 02:48 General CLAIRE: 3 Review of Systems Narrative: per HPI Exam Narrative Exam Narrative: Const: WDWN male in NAD, but does appear uncomfortable. VS per triage. HEENT: NC/AT. Normal facial exam. Neck: Supple. Trachea midline. Lungs: Normal respiratory effort. Lungs with a few scattered wheezes. Cor: RRR without murmur. Good radial pulses. GI: Soft/ND. Mild right upper quadrant tenderness. No guarding or rebound. Back: Mild right CVAT. Neuro: A+O x 3. Normal speech, mentation, gait. Cranial nerves II - XII grossly intact. No gross motor or sensory deficit. Ext: No C/C/E. Medical Decision Making Patient presenting to ED with right upper quadrant and back pain. Appears uncomfortable but belly exam is fairly benign with some mild tenderness in the right upper quadrant. Maybe some mild tenderness in the right CVA. He is afebrile here. Quite a few prior visits for abdominal pain, and quite a few CT scans. Will establish IV and give fluids, ketorolac, prochlorperazine. Will check urinalysis and laboratory studies, reevaluate and decide on imaging if needed. 4 AM?patient feeling better with no pain or nausea currently. Repeat abdominal exam continues to show right upper quadrant tenderness, without guarding or rebound. Laboratory studies with a normal white count and hemoglobin. Chemistries normal except for glucose of 213. LFTs normal except for bilirubin of 1.5, which has been elevated in the past. Lipase is less than 10. Urinalysis negative except for specific gravity greater than 1.030. Because patient continues to have right upper quadrant tenderness, will plan for right upper quadrant ultrasound in the morning. Will give a second liter of LR given his specific gravity. Currently resting comfortably on the stretcher. 5:45 AM?patient reports that he feels completely fine and would like to go home. He has follow-up and testing occurring very soon at [facility]. Given his reassuring laboratory studies, close follow-up, significant improvement in symptoms will discharge home with return precautions. Differential Diagnosis Differential Diagnosis: Biliary colic, cholecystitis, renal colic, pancreatitis, liver disease... Medical Records Medical records reviewed: Yes I reviewed the patient's medical records. Medical records narrative: various ED visits and imaging records Lab Data Lab results reviewed: Yes I reviewed the patient's lab results. Lab results narrative: see [facility] All Active Problems (Updated 09/08/23 @ 05:46 by Magan Soriano MD) Abdominal pain (Acute) Nausea & vomiting (Acute) Medical History (Updated 09/08/23 @ 05:46 by Magan Soriano MD) Bilateral kidney stones Cystic fibrosis Small bowel obstruction Surgical History S/P appendectomy Social History Smoking/Tobacco Use Status: Never Smoking risk assessment performed?: Yes Alcohol Intake: current Alcohol Intake frequency: holidays/special occasions only Alcohol type: beer Drug use: Never Substance use type: does not use Do you feel safe at home: Yes Do you feel safe in your relationship?: Yes
[2023-09-08] MEDS: Lactated Ringers 1,000 ML 1000 ML IV ×2 (03:03→04:03)
[2023-09-08 03:05] LABS: Abs Immature Grans 0.03 10^3/uL (0.0-0.06); Absolute Basophil Count 0.05 10^3/uL (0.0-0.2); Absolute Eosinophil Count 0.61 10^3/uL (0.0-0.7); Absolute Lymphocyte Count 1.51 10^3/uL (1.2-3.4); Absolute Monocyte Count 1.02 10^3/uL (0.1-0.8); Basophils % 0.5 %; Eosinophils % 5.9 %; HGB 16.8 g/dL (13.5-17.5); Immature Grans % 0.3 %; Lymphocytes % 14.5 %; MCH 30.3 pg (27.0-33.0); MCHC 34.3 % (32.0-36.0); MCV 88 fL (80-95); MPV 9.3 fL (8.0-11.0); Monocytes % 9.8 %; Platelet Count 216 10^3/uL (130-400); RBC 5.54 10^6/uL (4.36-5.78); RDW 13.2 % (11.8-14.1); RDW-SD 42.8 fL; WBC 10.42 10^3/uL (4.4-10.8)
[2023-09-08] MEDS: Prochlorperazine 10 MG/2 ML VIAL IVP (03:06)
[2023-09-08] MEDS: Ketorolac 30 MG/ML VIAL IVP (03:06)
[2023-09-08 03:20] LABS: ALT 47 U/L (16-63); AST 25 U/L (15-37); Albumin 3.4 g/dL (3.4-5.0); Alkaline Phosphatase 98 U/L (46-116); Anion Gap 8.7 mmol/L (3-11); BUN 15 mg/dL (7-18); Bilirubin, Total 1.5 mg/dL (0.2-1.0); CO2 25.3 mmol/L (21.0-32.0); CREATININE 1.2 mg/dL (0.70-1.30); Calcium 8.7 mg/dL (8.5-10.1); Chloride 102 mmol/L (98-107); Estimated GFR 79.88 (mL/min/1.73m2); Glucose 213 mg/dL (74-106); Lipase < 10 U/L (16-77); Potassium 4.2 mmol/L (3.5-5.1); Sodium 136 mmol/L (136-145); Total Protein 6.6 g/dL (6.4-8.2)
[2023-09-08 03:47] LABS: Bilirubin Negative (Negative); Blood Negative (Negative); Clarity Clear (Clear); Glucose Negative (Negative); Ketones Negative (Negative); Leukocyte Esterase Negative (Negative); Nitrite Negative (Negative); Specific Gravity >= 1.030 (1.005-1.025); Urobilinogen 0.2 mg/dL (Up to 0.2)
== END 2023-09-08 05:53 | disposition home or self-care (01) ==
PROVIDERS: Emergency Provider Emergency Medicine; PCP Family Medicine
DX: R10.9 Unspecified abdominal pain (principal); R11.2 Nausea with vomiting, unspecified
CPT/HCPCS: 36415; 80053; 83690; 96361; 96374; 96375; 99284; 81003; 83735; 85025; J0780; J1885

== ENCOUNTER 2023-12-04 09:14 | Outpatient (CLI) | payer SELFPAY ==
[2023-12-04 09:26] LABS: ALT 32 U/L (16-63); AST 21 U/L (15-37); Alkaline Phosphatase 93 U/L (46-116); Bilirubin, Direct 0.3 mg/dL (0.0-0.2); Bilirubin, Total 1.86 mg/dL (0.2-1.0); Total Protein 7.4 g/dL (6.4-8.2)
== END 2023-12-04 09:15 | disposition home or self-care (01) ==
LOC: LBO 09:17
PROVIDERS: PCP Family Medicine; Visit Provider Internal Medicine Pulmonary Disease
DX: E84.9 Cystic fibrosis, unspecified (principal)
CPT/HCPCS: 36415; 80076

== ENCOUNTER 2024-02-26 14:34 | Outpatient (CLI) | payer SELFPAY ==
[2024-02-26 16:19] LABS: ALT 39 U/L (16-63); AST 28 U/L (15-37); Alkaline Phosphatase 114 U/L (46-116); Bilirubin, Direct 0.3 mg/dL (0.0-0.2); Bilirubin, Total 2.05 mg/dL (0.2-1.0); Total Protein 7.9 g/dL (6.4-8.2)
== END 2024-02-26 14:35 | disposition home or self-care (01) ==
LOC: LBO 14:35
PROVIDERS: PCP Family Medicine; Visit Provider Internal Medicine Pulmonary Disease
DX: E84.9 Cystic fibrosis, unspecified (principal)
CPT/HCPCS: 36415; 80076

== ENCOUNTER 2025-01-21 15:13 | Emergency (ER) | payer BC, SELFPAY ==
[2025-01-21 15:16] VITALS: BP 151/105; PULSE 78; RESP 18; TEMP 36.7; O2SAT 97
--- NOTE | 2025-01-21 15:31 | ED.GENADUL_ITS ---
Discharge Plan Disposition Patient Disposition: Home Condition: Stable Discharge Details Clinical Impression: Neoplasm of uncertain behavior of skin of forearm, Superficial fungal infection of skin Primary Care Provider: Iesha Vargas ED Provider: Yahir Gonzáles Home Meds and New Rx's Prescriptions: Continued cholecalciferol (vitamin D3) 1,250 mcg (50,000 unit) capsule 1,250 mcg PO QWEEK albuterol sulfate 90 mcg/actuation HFA aerosol inhaler 2 puff inhalation Q6H PRN (Reason: shortness of breath or wheezing) Qty: 8.5 0RF cetirizine 10 mg capsule 10 mg PO DAILY PRN (Reason: allergy symptoms) Qty: 30 0RF Creon 6,000-19,000 -30,000 unit capsule,delayed release(DR/EC) 1 cap PO QID nystatin 100,000 unit/gram powder 1 applic topical TID Qty: 30 0RF pantoprazole 40 MG tablet,delayed release (DR/EC) 1 tab PO DAILY ProAir RespiClick 90 MCG aerosol powdr breath activated 2 puff Inhalation PRN PRN Trikafta 100-50-75 mg(d) /150 mg (n) tablets, sequential 1 tab PO DIRECTED Discharge Instructions Instructions: Moles on the Skin, Fungal Skin Rash ED Additional Instructions: You were seen in the emergency department for your changes to your mole of your left forearm, they are concerning and I think you should have a biopsy sooner than later, I will have my office contact Dr. Vargas so they can process an urgent referral for dermatology, there is one Dr. Bergman in [place] as well as [facility] dermatology offices. For your superficial fungal infection of the perineum you should OTC antifungal creams with active ingredients of terbinafine, butenafine and clotrimazole, apply these in a rotating fashion 5-6 times daily, also use medicated Selsun Blue shampoo as body wash to the area every other day or so, return for any emergent concerns. Referrals: Iesha Vargas [Primary Care Provider, Medicine] Franklin Bergman MD [ CONSULTING PHYSICIAN, Dermatology] Discharge Data Discharge Date/Time-TO BE ENTERED AT DEPARTURE: 01/21/25 16:20 HPI General Date/Time Provider Initiated Documentation: 01/21/25 15:14 . HPI Narrative: 39 year-old male presents to ED today by POV/ambulating with a chief complaint of mole change to L proximal dorsal forearm- increase in size/color/shape, with onset noted 4 days ago in the shower. Quality described as increase in height and change in color with border changes, and also would like a fungal infection evaluated in his perineum, no radiation to erythema, tenderness, drainage, bowel/urinary changes, weight loss. Severity is described as 0/10. Palliating factors include has used clotrimazole on his fungal infections. Provoking factors include nothing specific. Patient not anticoagulated. Related Data Home Medications ?Medication ?Instructions ?Recorded ?Confirmed albuterol sulfate 90 mcg/actuation 2 puff inhalation P RN PRN 11/14/17 01/21/25 breath activated powder inhaler (ProAir RespiClick) pantoprazole 40 mg tablet,delayed 1 tab PO DAILY 11/1401/21/25 release elexacaftor 100 mg-tezacaf 1 tab PO DIRECTED 01/21/25 50mg-ivacaf 75mg(d)/ivacaf 150mg(n) tablets (Trikafta) [id number]-rbfspzkw-fipesxr 1 cap PO QID 01/31/24 (pork)6,000-19,000-30,000 unit capsule,del rel (Creon) nystatin 100,000 unit/gram topical 1 applic topical TI D #30 grams 01/31/24 01/21/25 powder albuterol sulfate 90 mcg/actuation 2 puff inhalation Q 6H PRN 03/21/24 01/21/25 aerosol inhaler shortness of breath or wheez ing #8.5 grams cholecalciferol (vitamin D3) 1,250 1,250 mcg PO QWEEK 03/21/24 01/21/25 mcg (50,000 unit) capsule cetirizine 10 mg capsule 10 mg PO DAILY PRN allergy 0 11/13/24 01/21/25 symptoms #30 caps Previous Rx's ?Medication ?Instructions ?Recorded nystatin 100,000 unit/gram topical 1 applic topical TI D #30 grams 01/31/24 powder albuterol sulfate 90 mcg/actuation 2 puff inhalation Q 6H PRN 03/21/24 aerosol inhaler shortness of breath or wheez ing #8.5 grams cetirizine 10 mg capsule 10 mg PO DAILY PRN allergy 0 11/13/24 symptoms #30 caps Allergies Allergy/AdvReac Type Severity Reaction Status Date / Time tobramycin AdvReac Severe tinitus Verified 01/21/25 15:21 General Stated Complaint: RashLesion CLAIRE: 4 Review of Systems All systems reviewed & are unremarkable except as noted in HPI and below Exam Narrative Exam Narrative: GENERAL APPEARANCE: Well-nourished, non-toxic, awake and alert, atraumatic, no acute distress. SKIN: Warm, pink, dry, 0.2 cm mole with irregular border to the left proximal dorsal forearm with significant height change in variation of color, has minor superficial fungal infection to the left perineum/inferior gluteal area HEAD: Normocephalic, atraumatic, normal hair distribution for gender/age. EYES: Normal conjunctiva, no exudates on lids/lashes. ENT: Nares patent, no circumoral cyanosis, no facial swelling NECK: Supple, trachea midline, painless cervical ROM. LUNGS/CHEST: Non-labored respirations, normal A/P diameter, symmetrical expansion, no chest wall deformity HEART (CV/PV): No peripheral edema, no JVD. ABDOMEN: Soft, non-distended, no guarding. MSK: Normal ROM, no swelling/deformity to bilateral UEs or LEs, moving all extremities without weakness, no cyanosis, spine midline without tenderness, normal curvature. NEURO: Mental Status AAOx4 - alert to person, place, time, events No facial droop, no forehead involvement. Motor: No focal weakness - strength 5/5 in bilateral UEs and LEs, proximal and distal, symmetric. Sensory: sensation intact to light touch globally. Gait normal: patient ambulated without ataxia into ED room. PSYCH: euthymic, cooperative, pleasant, appropriate speech Course Vital Signs Vital signs: Vital Signs Temperature 36.7 C 01/21/25 15:16 Pulse 78 01/21/25 15:16 Respiratory Rate 18 01/21/25 15:16 Blood Pressure 151/105 H 01/21/25 15:16 Pulse Oximetry 97 01/21/25 15:16 Temperature 36.7 C 01/21/25 15:16 Temperature Source Temporal Artery Scan 01/21/25 15:16 Pulse 78 01/21/25 15:16 Respiratory Rate 18 01/21/25 15:16 Blood Pressure 151/105 H 01/21/25 15:16 Blood Pressure Position Sitting 01/21/25 15:16 Pulse Oximetry 97 01/21/25 15:16 Oxygen Delivery Method Room Air 01/21/25 15:16 Oxygen Flow Rate 0 01/21/25 15:16 Pain Level 0 01/21/25 15:16 Medical Decision Making This dictation utilizes [id number] dictation software and may contain unedited grammatical errors. 39 year-old male presents to ED today by POV/ambulating with a chief complaint of mole change to L proximal dorsal forearm- increase in size/color/shape, with onset noted 4 days ago in the shower. Quality described as increase in height and change in color with border changes, and also would like a fungal infection evaluated in his perineum, no radiation to erythema, tenderness, drainage, bowel/urinary changes, weight loss. Severity is described as 0/10. Palliating factors include has used clotrimazole on his fungal infections. Provoking factors include nothing specific. Patients' medical history: Cystic fibrosis. Family and social history: Noncontributory. Pertinent exam findings / vital signs include 0.2 cm mole with irregular border to the left proximal dorsal forearm with significant height change in variation of color, has minor superficial fungal infection to the left perineum/inferior gluteal area. Differential / pathologies of concern include skin cancer, irregular nevus, fungal infection. Diagnostic studies of: - None. Interventions of: - Will have admin staff send urgent referral request to his PCP Dr. Vargas in [place] for dermatology for biopsy, counseled on conservative management of fungal infections with OTC antifungal creams and Selsun Blue body wash. ED Course/Assessment/Plan: 39-year-old male presents with mole changes to his left dorsal forearm with increase in size changing color and border, I am concerned that he should have this biopsied sooner than later was the mole has been present for years but the changes are acute and sudden. His superficial fungal infection of the left perineal area is very minor with no active bleeding, counseled on use of Selsun Blue medicated shampoo his body wash and rotating terbinafine/butenafine/clotrimazole creams applying 5-6 times per day using body powders to keep the area clean and dry. Findings not consistent with abscess or cellulitis. Disposition of neoplasm of uncertain behavior of skin of forearm, superficial fungal infection. Patient verbalized understanding of the plan and return to ED criteria and engaged in shared decision making. Medical Records Medical records reviewed: Yes I reviewed the patient's medical records. PFSH All Active Problems (Updated 01/21/25 @ 15:44 by NADINE Ma) Superficial fungal infection of skin (Acute) Neoplasm of uncertain behavior of skin of forearm (Acute) Otitis externa (Acute) Medical History Bilateral kidney stones Cystic fibrosis Small bowel obstruction Surgical History S/P appendectomy Social History Smoking/Tobacco Use Status: Current every day Tobacco Type: smokeless tobacco Smoking risk assessment performed?: Yes Alcohol Intake: current Alcohol Intake frequency: 0-2 drinks per day Alcohol type: beer Drug use: Never Substance use type: does not use Do you feel safe at home: Yes Do you feel safe in your relationship?: Yes
== END 2025-01-21 16:20 | disposition home or self-care (01) ==
LOC: ER 16:04
PROVIDERS: Emergency Provider Physician Assistant; PCP Family Medicine
DX: D48.5 Neoplasm of uncertain behavior of skin (principal); B36.8 Other specified superficial mycoses
CPT/HCPCS: 99282; 99283